=== PATIENT | female | born 1975 | race Caucasian/White ===

== ENCOUNTER 2023-05-22 22:26 | Emergency (ER) | payer BC, SELFPAY ==
[2023-05-22 22:29] VITALS: BP 138/105; PULSE 97; RESP 16; TEMP 36.8; O2SAT 100; BMI 25.0
--- NOTE | 2023-05-22 22:50 | ED_ITS ---
HPI - General Adult General Chief complaint: Headache Stated complaint: HEADACHE Time Seen by Provider: 05/22/23 22:38 Source: patient Mode of arrival: walk-in History of Present Illness HPI narrative: The patient have a history of migraines coming to the ER with migraine attack according to her , the headache is associated with nausea and vomiting and she did take her Imitrex at home that did not help ,the patient had her last episode of headache like this almost a year ago No history of head trauma no other concerning symptoms Related Data Home Medications Medication Instructions Recorded Confirmed citalopram 40 mg tablet 40 mg PO DAILY 05/22/23 05/22/23 montelukast 10 mg tablet 10 mg PO DAILY 05/22/23 05/22/23 pramipexole 0.5 mg tablet 0.5 mg PO DAILY 05/22/23 05/22/23 propranolol 80 mg capsule,24 80 mg PO DAILY 05/22/23 05/22/23 hr,extended release sumatriptan succinate 25 mg tablet 25 mg PO DAILY 05/22/23 05/22/23 Allergies Allergy/AdvReac Type Severity Reaction Status Date / Time banana peppers Allergy Unknown Uncoded 05/22/23 22:36 Review of Systems ROS Status of ROS 10 or more systems reviewed and unremarkable except as noted in history and below [facility] Social History Smoking status: Never smoker Exam Narrative Exam Narrative: Nurses notes and vital signs reviewed and patient is not hypoxic. General: Well-appearing and in no apparent distress. Skin: Warm, dry, no pallor noted. No rash. Head: Normocephalic, atraumatic. Neck: Supple, non-tender. Eye: Pupils are equal, round and EOMI. No scleral icterus. Ears, Nose, Mouth, and Throat: TM are clear, no nasal mucosal hypertrophy. Oral mucosa is moist, no posterior oropharynx erythema, uvula is mid-line Cardiovascular: Regular Rate and Rhythm without murmur, gallop or rub. Respiratory: No accessory muscle use or respiratory distress. Lungs are clear to auscultation, no wheezing, rales or rhonchi Chest Wall: no tenderness Back: No midline thoracic or lumbar vertebral tenderness. No CVA tenderness Musculoskeletal: normal ROM, no calf or popliteal tenderness, no lower extremity edema/swelling GI: Abdomen is soft, non-distended. Normal bowel sounds. No masses appreciated. No tenderness to palpation. No rebound, guarding, or rigidity noted. Neurological: A&O x4. No cranial nerve dysfunction observed. No truncal ataxia. Moves all extremities. Sensation intact. Psychiatric: Cooperative and interactive. Normal mood and affect. Constitutional Vital Signs, click to edit/add: Last Vital Signs Temp 98.3 F 05/22/23 22:29 Pulse 97 H 05/22/23 22:29 Resp 16 05/22/23 22:29 BP 138/105 H 05/22/23 22:29 Pulse Ox 100 05/22/23 22:29 O2 Del Method Room Air 05/22/23 22:29 Course Vital Signs Vital signs: Vital Signs Temperature 98.3 F 05/22/23 22:29 Pulse Rate 97 H 05/22/23 22:29 Respiratory Rate 16 05/22/23 22:29 Blood Pressure 138/105 H 05/22/23 22:29 Pulse Oximetry 100 05/22/23 22:29 Oxygen Delivery Method Room Air 05/22/23 22:29 Temperature 98.3 F 05/22/23 22:29 Pulse Rate 97 H 05/22/23 22:29 Respiratory Rate 16 05/22/23 22:29 Blood Pressure 138/105 H 05/22/23 22:29 Pulse Oximetry 100 05/22/23 22:29 Oxygen Delivery Method Room Air 05/22/23 22:29 Medical Decision Making MDM Narrative Medical decision making narrative: The patient presenting to us with a typical migraine that she was treated in the ER with a Toradol and Compazine after which she was feeling much better Discharge Plan Discharge Chief Complaint: Headache Clinical Impression: Migraine Patient Disposition: Home, Self-Care Time of Disposition Decision: 00:17 Condition: Good Prescriptions / Home Meds: No Action propranolol 80 mg capsule,extended release 24 hr 80 mg PO DAILY citalopram 40 mg tablet 40 mg PO DAILY sumatriptan succinate 25 mg tablet 25 mg PO DAILY pramipexole 0.5 mg tablet 0.5 mg PO DAILY montelukast 10 mg tablet 10 mg PO DAILY Instructions: Acute Headache (ED) Stand Alone Forms: Portal Instructions Referrals: Jose Jennings MD [Primary Care Provider] - 1 week Discharge Date/Time: 05/23/23 00:31
[2023-05-22] MEDS: KETOROLAC TROMETHAMINE 30 MG/ML VIAL 15 MG IVP (23:00)
[2023-05-22] MEDS: PROMETHAZINE HCL 25 MG/ML VIAL IV (23:00)
== END 2023-05-23 00:31 | disposition home or self-care (01) ==
PROVIDERS: Emergency Provider Emergency Medicine; PCP Family Medicine
DX: G43.909 Migraine, unspecified, not intractable, without status migrainosus (principal); Z79.899 Other long term (current) drug therapy
CPT/HCPCS: 96374; 96375; 99284

== ENCOUNTER 2023-08-07 10:45 | Emergency (ER) | payer BC, SELFPAY ==
[2023-08-07 10:46] VITALS: BP 136/94; PULSE 106; RESP 28; O2SAT 99; BMI 24.0
--- NOTE | 2023-08-07 10:55 | ECG_ITS ---
The [facility] Test Date: 2023-08-07 Pat Name: MELE MENDEZ Department: Room: - Gender: Female Information Services Tech: : 1975 Requested By: KATHRYN PHILLIP Order Number: [id number] Reading MD: JASMYNE TOMLIN Measurements Intervals Cobb Rate: 103 P: 79 DE: 130 QRS: 78 QRSD: 94 T: 83 QT: 356 QTc: 415 Interpretive Statements 1120 Sinus tachycardia 2440 Incomplete right bundle branch block 0102 ARTIFACT PRESENT 9140 abnormal rhythm ECG No previous ECG available for comparison Electronically Signed On 08-08-2023 7:00:04 EDT by JASMYNE TOMLIN
--- NOTE | 2023-08-07 10:55 | XR_ITS ---
The [address] [address] Patient Name: MELE MENDEZ MRN: [id number] date: 1975 Sex: F Assigned Patient Location: ER Current Patient Location: ER Accession/Order Number: [id number] Exam Date: 08/07/2023 11:18 Report Date: 08/07/2023 11:42 At the request of: ERMA LOVE Procedure: XR chest 1V EXAMINATION: XR chest 1V HISTORY: shortness of breath COMPARISON: No relevant comparison available. FINDINGS: LUNGS: No significant pulmonary parenchymal abnormalities. VASCULATURE: No increased pulmonary vasculature. PLEURA: No pneumothorax, effusion, or pleural thickening. CARDIAC: No cardiomegaly or cardiac silhouette abnormality. MEDIASTINUM: No visible mass or adenopathy. BONES: No fracture or visible bone lesion. OTHER: Negative. XR/XR chest 1V IMPRESSION: 1. Well expanded lungs without appreciable infiltrates. Electronically authenticated by: ORION MAC Date: 08/07/2023 11:42
[2023-08-07] MEDS: IPRATROPIUM/ALBUTEROL SULFATE 3 ML AMPUL.NEB IH (11:00)
[2023-08-07 11:01] VITALS: PULSE 83; RESP 24; O2SAT 95
[2023-08-07] MEDS: METHYLPREDNISOLONE SOD SUCC PF 125 MG/2 ML VIAL IVP (11:09)
[2023-08-07 11:10] VITALS: O2SAT 99
--- NOTE | 2023-08-07 11:10 | ED_ITS ---
HPI - SOB/Dyspnea General Chief Complaint: Shortness of Breath/Dyspnea Stated Complaint: ASTHMA ATTACK/SOB Time Seen by Provider: 08/07/23 10:50 Source: patient Mode of arrival: walk-in Limitations: no limitations History of Present Illness HPI Narrative: 47yr old smoker previously diagnosed with Asthma presents after 1 week of cough and wheezing that acutely worsened over night. She has an inhaler and nebulizer machine at home - she used the inhaler without improvement so she tried the nebulizer this morning but it didn't help, so she came to the ED for evaluation and treatment. She denied history of COPD or emphysema. She denied cardiac history or history of DVT or PE. Related Data Home Medications Medication Instructions Recorded Confirmed citalopram 40 mg tablet 40 mg PO DAILY 05/22/23 05/22/23 montelukast 10 mg tablet 10 mg PO DAILY 05/22/23 05/22/23 pramipexole 0.5 mg tablet 0.5 mg PO DAILY 05/22/23 05/22/23 propranolol 80 mg capsule,24 80 mg PO DAILY 05/22/23 05/22/23 hr,extended release sumatriptan succinate 25 mg tablet 25 mg PO DAILY 05/22/23 05/22/23 Previous Rx's Medication Instructions Recorded azithromycin 250 mg tablet See Rx Instructions PO .COMPLEX #6 08/07/23 tabs prednisone 20 mg tablet 40 mg PO DAILY 5 days #10 tabs 08/07/23 Allergies Allergy/AdvReac Type Severity Reaction Status Date / Time banana peppers Allergy Unknown Uncoded 05/22/23 22:36 [facility] Social History Smoking status: Heavy tobacco smoker Exam Narrative Exam Narrative: Nurses notes and vital signs reviewed and patient is not hypoxic. afebrile General: Well-appearing and in no apparent distress. Skin: Warm, dry, no pallor noted. No rash. Head: Normocephalic, atraumatic. Eye: Pupils are equal, round and EOMI. No scleral icterus. Ears, Nose, Mouth, and Throat: Oral mucosa is moist Cardiovascular: Regular Rate and Rhythm without murmur, gallop or rub. Respiratory: Increased work of breathing with accessory muscle use but no respiratory distress. Lungs with inspiratory and expiratory wheezing throughout, scattered rhonchi Chest Wall: no tenderness, crepitus or subcutaneous emphysema Musculoskeletal: normal ROM, no calf or popliteal tenderness, no lower extremity edema/swelling Neurological: A&O x4. No cranial nerve dysfunction observed. No truncal ataxia. Moves all extremities. Sensation intact. Psychiatric: Cooperative and interactive. Normal mood and affect. Constitutional Vital Signs, click to edit/add: Last Vital Signs Pulse 83 08/07/23 11:01 Resp 24 08/07/23 11:01 BP 136/94 H 08/07/23 10:46 Pulse Ox 99 08/07/23 11:10 O2 Del Method Nasal Cannula 08/07/23 11:01 O2 Flow Rate 2 08/07/23 11:10 Course Vital Signs Vital signs: Vital Signs Pulse Rate 106 H 08/07/23 10:46 Respiratory Rate 28 H 08/07/23 10:46 Blood Pressure 136/94 H 08/07/23 10:46 Pulse Oximetry 99 08/07/23 10:46 Oxygen Delivery Method Room Air 08/07/23 10:46 Pulse Rate 83 08/07/23 11:01 Respiratory Rate 24 08/07/23 11:01 Blood Pressure 136/94 H 08/07/23 10:46 Pulse Oximetry 99 08/07/23 11:10 Oxygen Delivery Method Nasal Cannula 08/07/23 11:01 Oxygen Delivery Flow Rate 2 08/07/23 11:10 MDM - SOB/Dyspnea MDM Narrative Medical decision making narrative: Patient was placed on laboratory monitor and EKG obtained. Blood drawn and sent for evaluation, including lactate and blood cultures per sepsis protocol. Portable CXR obtained. She received IV Solumedrol and nebulized albuterol and atrovent. she felt better after emergency department treatment. No pneumonia identified on chest x-ray but she has findings consistent with chronic obstructive pulmonary disease. Screening testing including d-dimer, troponin, BNP, Covid swab, were all negative. remaining blood tests were unremarkable. Cultures are pending but lactate was negative. The patient was informed of results and we discussed her diagnosis. She was able to be discharged home with prescription for five days of prednisone, antibiotic and instructions to use her albuterol nebulizer every six hours for the next few days and then as needed. Was given referral information for Dr. Caputo, our clinical care coordinator. She can also follow up with her primary care physician. Lab Data Attestation: I reviewed the patient's lab results. Labs: Lab Results 08/07/23 08/07/23 Range/Units 11:00 11:16 WBC 7.8 (4.0-11.0) 10^3/uL RBC 4.79 (4.20-5.40) 10^6/uL Hgb 11.1 L (12.0-16.0) g/dL Hct 37.0 (36.0-48.0) % MCV 77.2 L (81.0-99.0) fL MCH 23.2 L (26.7-34.0) pg MCHC 30.0 (29.9-35.2) g/dL RDW 18.6 H (11.0-15.0) % Plt Count 260 (150-450) 10^3/uL MPV 9.4 L (9.5-13.5) fL Neut % (Auto) 79.6 H (43.0-75.0) % Lymph % (Auto) 7.3 L (20.5-60.0) % [place] % (Auto) 5.1 (1.7-12.0) % Eos % (Auto) 6.7 (0.9-7.0) % Baso % (Auto) 0.9 (0.2-2.0) % Neut # (Auto) 6.2 (1.4-6.5) 10^3/uL Lymph # (Auto) 0.6 L (1.2-3.8) 10^3/uL [place] # (Auto) 0.4 (0.3-0.8) 10^3/uL Eos # (Auto) 0.5 (0.0-0.7) 10^3/uL Baso # (Auto) 0.1 (0.0-0.1) 10^3/uL Abs Immat Gran (auto) 0.03 (0.00-0.03) 10^3/uL Imm/Tot Granulo (auto) 0.4 (0.0-0.5) % D-Dimer 0.50 (<=0.59) mg/L FEU Sodium 141 (136-145) mmol/L Potassium 3.7 (3.5-5.1) mmol/L Chloride 103 (98-107) mmol/L Carbon Dioxide 24.2 (21.0-32.0) mmol/L Anion Gap 17.5 BUN 10.0 (7.0-18.0) mg/dL Creatinine 0.71 (0.55-1.02) mg/dL Est GFR ( Amer) >60 (>=60) Est GFR (Non-Af Amer) >60 (>=60) BUN/Creatinine Ratio 14.1 Glucose 201 H (74-106) mg/dL Lactate 1.8 (0.4-2.0) mmol/L Calcium 8.6 (8.5-10.1) mg/dL Troponin I High Sens 13.7 (4.0-51.3) pg/mL NT-Pro-B Natriuret Pep 265.0 (<=450.0) pg/mL SARS-CoV-2 (PCR) Negative (NEGATIVE) Imaging Data Chest x-ray: Radiologist's impression: Patient Name: MELE MENDEZ MRN: [id number] date: 1975 Sex: F Assigned Patient Location: ER Current Patient Location: ER Accession/Order Number: [id number] Exam Date: 08/07/2023 11:18 Report Date: 08/07/2023 11:42 At the request of: ERMA LOVE Procedure: XR chest 1V EXAMINATION: XR chest 1V HISTORY: shortness of breath COMPARISON: No relevant comparison available. FINDINGS: LUNGS: No significant pulmonary parenchymal abnormalities. VASCULATURE: No increased pulmonary vasculature. PLEURA: No pneumothorax, effusion, or pleural thickening. CARDIAC: No cardiomegaly or cardiac silhouette abnormality. MEDIASTINUM: No visible mass or adenopathy. BONES: No fracture or visible bone lesion. OTHER: Negative. IMPRESSION: 1. Well expanded lungs without appreciable infiltrates. Electronically authenticated by: ORION MAC Date: 08/07/2023 11:42 ECG Data Interpretation: EKG interpretation: Emergency Department physician interpretation. sinus tachycardia at 103bpm. incomplete right bundle-branch block. No ST segment elevation or depression. Smoking Cessation Time spent discussing smoking cessation with patient: 3 to 10 minutes Patient Acknowledges Need for Cessation: Yes Discharge Plan Discharge Chief Complaint: Shortness of Breath/Dyspnea Clinical Impression: Acute infective exacerbation of chronic obstructive airway disease, Asthma with acute exacerbation Patient Disposition: Home, Self-Care Time of Disposition Decision: 12:08 Prescriptions / Home Meds: New prednisone 20 mg tablet 40 mg PO DAILY 5 Days Qty: 10 0RF azithromycin 250 mg tablet See Rx Instructions .ROUTE .COMPLEX Qty: 6 0RF Rx Instructions: For 250 mg dose pack: take 500 mg today (day 1), then 250 mg for 4 days (days 2-5) No Action propranolol 80 mg capsule,extended release 24 hr 80 mg PO DAILY citalopram 40 mg tablet 40 mg PO DAILY sumatriptan succinate 25 mg tablet 25 mg PO DAILY pramipexole 0.5 mg tablet 0.5 mg PO DAILY montelukast 10 mg tablet 10 mg PO DAILY Instructions: Asthma (ED), How to Stop Smoking (ED), Chronic Bronchitis (ED) Stand Alone Forms: Portal Instructions Referrals: Jose Jennings MD [Primary Care Provider] - 1 week Keagan Caputo DO [Physician] - As soon as possible
[2023-08-07 11:28] LABS: Basophils Absolute Auto 0.1 10^3/uL (0.0-0.1); Basophils Percent Auto 0.9 % (0.2-2.0); Eosinophils Absolute Auto 0.5 10^3/uL (0.0-0.7); Eosinophils Percent Auto 6.7 % (0.9-7.0); Hemoglobin 11.1 g/dL (12.0-16.0); Immature Granulocytes Abs Auto 0.03 10^3/uL (0.00-0.03); Immature Granulocytes Pct Auto 0.4 % (0.0-0.5); Lymphocytes Absolute Auto 0.6 10^3/uL (1.2-3.8); Lymphocytes Percent Auto 7.3 % (20.5-60.0); Mean Corpuscular Hemoglobin 23.2 pg (26.7-34.0); Mean Corpuscular Volume 77.2 fL (81.0-99.0); Mean Platelet Volume 9.4 fL (9.5-13.5); Monocytes Absolute Auto 0.4 10^3/uL (0.3-0.8); Monocytes Percent Auto 5.1 % (1.7-12.0); Neutrophils Absolute Auto 6.2 10^3/uL (1.4-6.5); Neutrophils Percent Auto 79.6 % (43.0-75.0); Platelet Count 260 10^3/uL (150-450); Red Blood Count 4.79 10^6/uL (4.20-5.40); Red Cell Distribution Width 18.6 % (11.0-15.0); White Blood Count 7.8 10^3/uL (4.0-11.0)
[2023-08-07 11:46] LABS: Lactate/Lactic Acid 1.8 mmol/L (0.4-2.0)
[2023-08-07 11:51] LABS: Anion Gap 17.5; BUN Creatinine Ratio 14.1; Calcium 8.6 mg/dL (8.5-10.1); Carbon Dioxide 24.2 mmol/L (21.0-32.0); Chloride 103 mmol/L (98-107); Estimated GFR (African America >60 (>=60); Estimated GFR (Non-African Ame >60 (>=60); Glucose 201 mg/dL (74-106); Potassium 3.7 mmol/L (3.5-5.1); Sodium 141 mmol/L (136-145); Troponin I High Sensitivity 13.7 pg/mL (4.0-51.3)
[2023-08-07 11:57] LABS: SARS-CoV-2 Ag NEGATIVE (NEGATIVE)
[2023-08-07 15:07] LABS: SARS-CoV-2 NAA NOT DETECTED (NOT DETECTE)
== END 2023-08-07 12:40 | disposition home or self-care (01) ==
PROVIDERS: Emergency Provider Emergency Medicine; PCP Family Medicine
DX: J44.1 Chronic obstructive pulmonary disease with (acute) exacerbation (principal); J45.901 Unspecified asthma with (acute) exacerbation; Z79.899 Other long term (current) drug therapy; F17.210 Nicotine dependence, cigarettes, uncomplicated; Z20.822 Contact with and (suspected) exposure to COVID-19
CPT/HCPCS: 36415; 71045; 80048; 83605; 83880; 84484; 85025; 85378; 87040; 87635; 87811; 93005; 94640; 96374; 99285; J2930

== ENCOUNTER 2023-08-07 14:24 | Inpatient (IN) | payer BC, SELFPAY ==
[2023-08-07] VITALS (14 sets, daily range): BP systolic 116–132; BP diastolic 68–94; PULSE 98–160; RESP 24–40; TEMP 36.4–36.9; O2SAT 90–100; BMI 23.8
--- NOTE | 2023-08-07 14:28 | ED.SOB1 ---
HPI - SOB/Dyspnea General Chief Complaint: Shortness of Breath/Dyspnea Stated Complaint: SHORTNESS OF BREATH Time Seen by Provider: 08/07/23 14:26 History of Present Illness HPI Narrative: patient was evaluated in our ED earlier today and treated for asthma exacerbation and acute on chronic lung disease. She felt better after receiving IV solumedrol and duoneb treatment, was 93% o room air pulse ox and wanted to go home. She was prescribed additional albuterol nebs for home use, a course of antibiotics and a course of prednisone therapy. her workup was otherwise negative including CXR, ddimer, troponin and ekg. Less than 2 hours after discharge home she called 911 to bring her back because she was feeling shortness of breath. Related Data Home Medications Medication Instructions Recorded Confirmed citalopram 40 mg tablet 40 mg PO DAILY 05/22/23 05/22/23 montelukast 10 mg tablet 10 mg PO DAILY 05/22/23 05/22/23 pramipexole 0.5 mg tablet 0.5 mg PO DAILY 05/22/23 05/22/23 propranolol 80 mg capsule,24 80 mg PO DAILY 05/22/23 05/22/23 hr,extended release sumatriptan succinate 25 mg tablet 25 mg PO DAILY 05/22/23 05/22/23 Previous Rx's Medication Instructions Recorded albuterol sulfate 2.5 mg/3 mL 2.5 mg (3 mL) inhalation Q6H PRN 08/07/23 (0.083 %) solution for nebulization shortness of breath or wheezing #90 mL azithromycin 250 mg tablet See Rx Instructions PO .COMPLEX #6 08/07/23 tabs prednisone 20 mg tablet 40 mg PO DAILY 5 days #10 tabs 08/07/23 Allergies Allergy/AdvReac Type Severity Reaction Status Date / Time banana peppers Allergy Unknown Uncoded 05/22/23 22:36 PFSH PFS Social History Smoking status: Heavy tobacco smoker Exam Narrative Exam Narrative: Nurses notes and vital signs reviewed and patient is not hypoxic. afebrile General: Well-appearing and in no apparent distress. Skin: Warm, dry, no pallor noted. No rash. Head: Normocephalic, atraumatic. Eye: Pupils are equal, round and EOMI. No scleral icterus. Ears, Nose, Mouth, and Throat: Oral mucosa is moist Cardiovascular: tachycardia. Respiratory: Increased work of breathing with accessory muscle use but no respiratory distress. Lungs with inspiratory and expiratory wheezing throughout, scattered rhonchi Chest Wall: no tenderness, crepitus or subcutaneous emphysema Musculoskeletal: normal ROM, no calf or popliteal tenderness, no lower extremity edema/swelling Neurological: A&O x4. No cranial nerve dysfunction observed. No truncal ataxia. Moves all extremities. Sensation intact. Psychiatric: Cooperative and interactive. Normal mood and affect. Constitutional Vital Signs, click to edit/add: Last Vital Signs Temp 98.0 F 08/07/23 14:25 Pulse 106 H 08/07/23 14:25 Resp 28 H 08/07/23 14:25 BP 132/91 08/07/23 14:25 Pulse Ox 100 08/07/23 14:25 O2 Del Method Room Air 08/07/23 14:25 Course Vital Signs Vital signs: Vital Signs Temperature 98.0 F 08/07/23 14:25 Pulse Rate 106 H 08/07/23 14:25 Respiratory Rate 28 H 08/07/23 14:25 Blood Pressure 132/91 08/07/23 14:25 Pulse Oximetry 100 08/07/23 14:25 Oxygen Delivery Method Room Air 08/07/23 14:25 Temperature 98.0 F 08/07/23 14:25 Pulse Rate 106 H 08/07/23 14:25 Respiratory Rate 28 H 08/07/23 14:25 Blood Pressure 132/91 08/07/23 14:25 Pulse Oximetry 100 08/07/23 14:25 Oxygen Delivery Method Room Air 08/07/23 14:25 MDM - SOB/Dyspnea MDM Narrative Medical decision making narrative: 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 She was kept on [place] oxygen. ABG ordered to be obtained. I spoke with Dr Gay - patient will be admitted for asthma exacerbation, dyspnea and continue to receive steroids, neb treatments until improved enough to go home. Obs admit, medsurg with telemtry - Dr Gay's care. Discharge Plan Discharge Chief Complaint: Shortness of Breath/Dyspnea Clinical Impression: Acute infective exacerbation of chronic obstructive airway disease, Acute dyspnea, Asthma with acute exacerbation Patient Disposition: Admitted as Observation Time of Disposition Decision: 14:34 Prescriptions / Home Meds: No Action propranolol 80 mg capsule,extended release 24 hr 80 mg PO DAILY citalopram 40 mg tablet 40 mg PO DAILY sumatriptan succinate 25 mg tablet 25 mg PO DAILY pramipexole 0.5 mg tablet 0.5 mg PO DAILY montelukast 10 mg tablet 10 mg PO DAILY prednisone 20 mg tablet 40 mg PO DAILY 5 Days Qty: 10 0RF azithromycin 250 mg tablet See Rx Instructions .ROUTE .COMPLEX Qty: 6 0RF Rx Instructions: For 250 mg dose pack: take 500 mg today (day 1), then 250 mg for 4 days (days 2-5) albuterol sulfate 2.5 mg /3 mL (0.083 %) solution for nebulization 2.5 mg inhalation Q6H PRN (Reason: shortness of breath or wheezing) Qty: 90 0RF Additional Instructions: [facility] Referrals: Jose Jennings MD [Primary Care Provider] - 1 week
--- NOTE | 2023-08-07 14:40 | PC.NURSE ---
pt taking long deep breaths, inspiratory and expiatory wheezing comes and goes. pt alert and inform that will be admitted, pt verbalized udnerstanding.
[2023-08-07] MEDS: IPRATROPIUM/ALBUTEROL SULFATE 3 ML AMPUL.NEB IH ×2 (15:44→19:24)
--- NOTE | 2023-08-07 15:54 | PM.HP ---
H&P: HPI History of Present Illness Chief complaint: SHORTNESS OF BREATH Narrative: patient is a 47-year-old female past medical history of asthma, tobacco abuse, migraine headaches who reports over the last couple days developed a upper respiratory infection. She notes nasal congestion cough with some sinus drainage and developed shortness of breath yesterday. She is using her rescue inhaler without improvement she presented to the Emergency Room today was sent home and then returned. She states that she is not on oxygen at home her last cigarette was around 1 AM last night she smokes about half a pack to a pack per day depending on her stress level. She denies seeing a laborer poultry hatchery in the past and denies having pulmonary function tests. She also reports that she ran out of her Singulair last couple days. She denies any fevers and just feels worn down no chest pain but shortness of breath. Review of Systems ROS Narrative ROS: a complete review of systems were reviewed with patient and are positive as below or listed in History of Chief Complaint. General: no fever, chills, night sweats Head: no headache, trauma, visual changes, nausea or vomiting Skin: no reported rashes, itching or sores Eyes: no blurriness of vision Ears: no reported hearing loss, vertigo, earache, or tinnitus Throat: no sore throat, hoarseness, swelling of neck, or tongue pain Heart: no chest pain Lungs: shortness of breath, no cough GI: no diarrhea or vomiting/nausea Urinary: no urinary urgency, frequency or pain Neuro: no numbness or tingling HEM: no bleeding issues or bruising ENDO: no thyroid problems Psych: anxiety and depression PFSH PFSH Surgical History H/O tubal ligation ?Z98.51 - Tubal ligation status (ICD-10) Family History Mother Family history of cancer Family history of hypertension Grandmother Family history of cancer Family history of diabetes mellitus Grandfather Family history of diabetes mellitus Father Family history of hypertension Social History Within the past year, how often did you have a drink containing alcohol: monthly or less Within the past year, how many standard drinks containing alcohol did you have on a typical day: 1 or 2 Within the past year, how often did you have six or more drinks on one occasion: never Total score: 0 Score interpretation: A score less than 3 is consistent with normal alcohol consumption. Smoking status: Heavy tobacco smoker Non-prescribed substance use: denies use Previous occupational history: factory Known occupational exposures/hazards: Yes Highest level of school completed/degree received: some college, no degree Are you now , , , , never or living with a partner: never In a typical week, how many times do you talk on the telephone with family, friends, or neighbors: 3 or more times per week How often do you get together with friends or relatives: never How often do you attend yazidi or scientologist services: 4 or more times per year Do you belong to any clubs or organizations such as yazidi groups unions, go[employer] or athletic groups, or school groups: no Total score: 2 Score interpretation: A score of greater than or equal to 2 indicates the lowest level of social isolation. Little interest or pleasure in doing things: not at all Feeling down, depressed, or hopeless: several days Feel stressed/tense/nervous/anxious/difficulty sleeping: rather much Life stressors: financial matters Due to disability, difficulty making decisions: No Do you think of yourself as: straight/heterosexual Gender Identity: female Meds Home Medications and Allergies Home Medications Medication Instructions Recorded Confirmed Type citalopram 40 mg tablet 40 mg PO DAILY 05/22/23 08/07/23 History montelukast 10 mg tablet 10 mg PO DAILY 05/22/23 08/07/23 History pramipexole 0.5 mg tablet 0.5 mg PO DAILY 05/22/23 08/07/23 History propranolol 80 mg capsule,24 80 mg PO DAILY 05/22/23 08/07/23 History hr,extended release sumatriptan succinate 25 mg tablet 25 mg PO DAILY 05/22/23 08/07/23 History albuterol sulfate 2.5 mg/3 mL 2.5 mg (3 mL) inhalation Q6H PRN 08/07/23 08/07/23 Rx (0.083 %) solution for nebulization shortness of breath or wheezing #90 mL prednisone 20 mg tablet 40 mg PO DAILY 5 days #10 tabs 08/07/23 08/07/23 Rx Allergies Allergy/AdvReac Type Severity Reaction Status Date / Time banana peppers Allergy Unknown Uncoded 05/22/23 22:36 Exam Narrative Exam Narrative: General: Patient is alert, and oriented to person, place and time with some shortness of breath with speaking Skin: no visible rashes, or ulcers Head: atraumatic, acephalic Eyes: PERRLA, no nystagmus present, conjunctiva clear, no scleral icterus Ears: normal gross auditory acuity Heart: Normal rate and rhythm, no murmurs/rubs/gallops Lungs: audible wheezes, no crackles and diminished breath sounds all lung tirado Abdomen: Normal audible bowel sounds, no distension, No palpable masses, no organomegaly, no rebound/guarding/ or rigidity Musculoskeletal: no swelling bilateral lower extremities Neuro: CN II-X grossly intact, normal sensation upper and lower extremities Constitutional Vital Signs, click to edit/add: Last Vital Signs Temp 97.5 F L 08/07/23 15:01 Pulse 124 H 08/07/23 15:01 Resp 26 H 08/07/23 15:01 BP 116/74 08/07/23 15:01 Pulse Ox 95 08/07/23 15:01 O2 Del Method Nasal Cannula 08/07/23 15:01 O2 Flow Rate 2 08/07/23 15:01 Assessment and Plan Assessment and Plan (1) Acute infective exacerbation of chronic obstructive airway disease: Assessment and Plan: will place on Solu-Medrol 40 mg every 6 hours, scheduled DuoNeb's every 4 hours with as needed albuterol every 4 hours, Pulmicort twice a day OPEP therapy. Give 2 grams of mag IV. Chest X-ray was negative for pneumonia. Negative Covid test, but will check respiratory panel. patient placed on telemetry, continuous pulse ox, oxygen therapy if needed. Troponin and cardiac work up negative, d-dimer negative. (2) Migraine: Assessment and Plan: continue home medications (3) Anxiety and depression: Assessment and Plan: continue celexa (4) Tobacco abuse: Assessment and Plan: plans to stop Plan full code lovenox for dvt prophylaxis patient is observation status
[2023-08-07] MEDS: METHYLPREDNISOLONE SOD SUCC PF 40 MG/ML VIAL IVP ×2 (16:19→21:07)
[2023-08-07 16:21] LABS: Adenovirus NOT DETECTED (NOT DETECTE); Bordetella parapertussis NOT DETECTED (NOT DETECTE); Coronavirus 229E NOT DETECTED (NOT DETECTE); Coronavirus HKU1 NOT DETECTED (NOT DETECTE); Coronavirus NL63 NOT DETECTED (NOT DETECTE); Coronavirus OC43 NOT DETECTED (NOT DETECTE); Human Metapneumovirus NOT DETECTED (NOT DETECTE); Influenza A NOT DETECTED (NOT DETECTE); Influenza B NOT DETECTED (NOT DETECTE); Mycoplasma pneumoniae NOT DETECTED (NOT DETECTE); Parainfluenza Virus 1 NOT DETECTED (NOT DETECTE); Parainfluenza Virus 2 NOT DETECTED (NOT DETECTE); Parainfluenza Virus 3 NOT DETECTED (NOT DETECTE); Parainfluenza Virus 4 NOT DETECTED (NOT DETECTE); Respiratory Syncytial Virus NOT DETECTED (NOT DETECTE); SARS-CoV-2 NOT DETECTED (NOT DETECTE)
[2023-08-07 16:31] LABS: Amphetamine Screen Urine NEGATIVE (NEGATIVE); Barbiturates Screen Urine NEGATIVE (NEGATIVE); Benzodiazepines Screen Urine NEGATIVE (NEGATIVE); Buprenorphine Screen Urine NEGATIVE (NEGATIVE); Cannabinoid Screen Urine NEGATIVE (NEGATIVE); Cocaine Screen Urine NEGATIVE (NEGATIVE); Methadone Screen Urine NEGATIVE (NEGATIVE); Methamphetamines Screen Urine NEGATIVE (NEGATIVE); Opiate Screen Urine NEGATIVE (NEGATIVE); Oxycodone Screen Urine NEGATIVE (NEGATIVE); Phencyclidine Screen Urine NEGATIVE (NEGATIVE); Tricyclic Antidepressant Urine NEGATIVE (NEGATIVE)
[2023-08-07 17:10] LABS: Human Rhinovirus/Enterovirus DETECTED (NOT DETECTE)
[2023-08-07] MEDS: AZITHROMYCIN 250 MG in 0.9 % SODIUM CHLORIDE 250 ML IV (17:38)
[2023-08-07] MEDS: MAGNESIUM SULFATE IN WATER 2 GM/50 ML PREMIX IV (17:39)
[2023-08-07] MEDS: SUMATRIPTAN SUCCINATE 50 MG TABLET 25 MG PO (21:02)
[2023-08-07] MEDS: PROPRANOLOL HCL 80 MG CAP.24H PO (21:05)
[2023-08-07] MEDS: MONTELUKAST SODIUM 10 MG TABLET PO (21:07)
[2023-08-07] MEDS: METOPROLOL TARTRATE 5 MG/5 ML VIAL IVP (21:44)
[2023-08-07] MEDS: BUDESONIDE 0.5 MG/2 ML AMPULE NEB IH (22:44)
[2023-08-07] MEDS: LEVALBUTEROL HCL 1.25 MG/3 ML VIAL NEB IH (22:44)
--- NOTE | 2023-08-07 23:00 | PC.NURSE ---
Patient called out stating having difficulty breathing. Manager Division entered room found patient in tripod position. Assessed lungs and vs. Patient wheezing and coarse Rhonchi t/o and tight. Respiratory called for Br Tx. and notified Dr. James Scherer of patient situation. HR increased to 140 B/P 128/94, respirations 40, and SPO2 90% on 2l/nc before treatment. After br tx respirations 32, HR103, SPO2 95% on 2l/nc Patient states feeling a little better.
[2023-08-08] VITALS (119 sets, daily range): BP systolic 65–129; BP diastolic 45–93; PULSE 80–130; RESP 20–36; TEMP 36.2–37.2; O2SAT 93–100
--- NOTE | 2023-08-08 | PC.NURSE ---
Pt was moved to ICU Pt continues to have increased work with breathing. Pt holding staff members hand. Dr Goff talks with pt. explains that he may have to put in a breathing tube to help her Pt nods. Ask pt if she wants family called but pt shakes head no and says not to call til the morning. Pt's answer said back to her to confirm and pt shakes her head yes. Pt continues to have increased work with breathing. after pt put on Vapotherm.
[2023-08-08 00:04] LABS: Glucometer 235 mg/dL (74-106)
--- NOTE | 2023-08-08 00:07 | XR_ITS ---
The [address] [address] Patient Name: MELE MENDEZ MRN: [id number] date: 1975 Sex: F Assigned Patient Location: ICU Current Patient Location: ICU Accession/Order Number: [id number] Exam Date: 08/08/2023 00:10 Report Date: 08/08/2023 00:38 At the request of: VELASQUEZ WOODSON Procedure: XR chest 1V EXAM: XR chest 1V HISTORY: SOB COMPARISON: Chest x-ray 08/07/2023 TECHNIQUE: Single frontal view chest x-ray FINDINGS: Hyperexpanded bilateral lungs with flattening of the bilateral diaphragm. No lung consolidation, large pleural effusions, pneumothorax, or acute bony abnormality. Cardiac size is unremarkable. XR/XR chest 1V IMPRESSION: Hyperexpanded bilateral lungs with flattening of the bilateral diaphragm likely reflecting chronic obstructive airway disease. Correlate clinically. No radiographic lung consolidation or large pleural effusions. Electronically authenticated by: KEVIN GUIDO Date: 08/08/2023 00:38
[2023-08-08 00:13] LABS: ABG PCO2 65.7 mmHg (35.0-45.0); pH ABG 7.107 (7.350-7.450)
[2023-08-08 00:14] LABS: Allen Test POSITIVE (POSITIVE); Base Excess ABG -8.9 mmol/L (-2.0-2.0); HCO3 ABG 20.7 mmol/L (22.0-26.0); Liters per Minute 15; O2 Mode NONREBREATHER; Oxygen Saturation ABG 98.1 %
[2023-08-08 00:15] LABS: Puncture Site LR
--- NOTE | 2023-08-08 00:16 | PC.NURSE ---
Approx. around 2345 patient called out again c/o difficulty breathing. Bunk Assembler entered room found patient in tripod position working to breath. Skin pale diaphoretic. SPO2 81% on 2l/nc, HR 80, respiratory 60. Network Programmer called to room, and respiratory. Bunk Assembler on phone with ER doctor Shell to lay eyes on patient. Bunk Assembler waiting for response back from Dr. Scherer. Patient placed on non-rebreather and transfered to room 272 ICU transferred in bed with primary nurse and tunnel form placing supervisor. Orders received from ER doctor for CXR, ABG's. Patient's blood sugar also checked 235.
--- NOTE | 2023-08-08 00:43 | XR_ITS ---
The [address] [address] Patient Name: MELE MENDEZ MRN: [id number] date: 1975 Sex: F Assigned Patient Location: ICU Current Patient Location: ICU Accession/Order Number: [id number] Exam Date: 08/08/2023 00:45 Report Date: 08/08/2023 01:14 At the request of: GAURANG LUND Procedure: XR chest 1V EXAM: XR chest 1V HISTORY: placement of tubes COMPARISON: Chest radiograph dated 08/07/2023. TECHNIQUE: One view of the chest was obtained. FINDINGS: A nasogastric tube courses toward the upper abdomen though the tip is not seen. The endotracheal tube terminates approximately 5.5 cm above the pancho. The cardiac silhouette is stable in size. The lungs are clear. There is no significant pneumothorax or right pleural effusion. There is a possible small left pleural effusion. No acute osseous abnormality is seen. XR/XR chest 1V IMPRESSION: 1. An endotracheal tube terminates approximately 5.5 cm above the pancho. 2. A nasogastric tube courses toward the left upper quadrant though the tip is not seen. 3. Possible small left pleural effusion. Electronically authenticated by: Macho ROBB Date: 08/08/2023 01:14
--- NOTE | 2023-08-08 00:44 | PC.NURSE ---
Report given to Joy HAWLEY in ICU
[2023-08-08] MEDS: LEVALBUTEROL HCL 1.25 MG/3 ML VIAL NEB IH ×5 (00:50→11:15)
--- NOTE | 2023-08-08 00:59 | ED.GENADUL1 ---
HPI - General Adult General Chief complaint: Shortness of Breath/Dyspnea Stated complaint: SHORTNESS OF BREATH Time Seen by Provider: 08/07/23 14:26 Mode of arrival: ambulance History of Present Illness HPI narrative: eye was asked to go to the ICU to evaluate the patient. She had been admitted earlier in the day and was having difficulty breathing. Work of breathing had been increasing throughout the day. Related Data Home Medications Medication Instructions Recorded Confirmed citalopram 40 mg tablet 40 mg PO DAILY 05/22/23 08/07/23 montelukast 10 mg tablet 10 mg PO DAILY 05/22/23 08/07/23 pramipexole 0.5 mg tablet 0.5 mg PO DAILY 05/22/23 08/07/23 propranolol 80 mg capsule,24 80 mg PO DAILY 05/22/23 08/07/23 hr,extended release sumatriptan succinate 25 mg tablet 25 mg PO DAILY 05/22/23 08/07/23 Previous Rx's Medication Instructions Recorded albuterol sulfate 2.5 mg/3 mL 2.5 mg (3 mL) inhalation Q6H PRN 08/07/23 (0.083 %) solution for nebulization shortness of breath or wheezing #90 mL prednisone 20 mg tablet 40 mg PO DAILY 5 days #10 tabs 08/07/23 Allergies Allergy/AdvReac Type Severity Reaction Status Date / Time banana peppers Allergy Unknown Uncoded 05/22/23 22:36 PFSH PFSH Surgical History H/O tubal ligation ?Z98.51 - Tubal ligation status (ICD-10) Family History Mother Family history of cancer Family history of hypertension Grandmother Family history of cancer Family history of diabetes mellitus Grandfather Family history of diabetes mellitus Father Family history of hypertension Social History Within the past year, how often did you have a drink containing alcohol: monthly or less Within the past year, how many standard drinks containing alcohol did you have on a typical day: 1 or 2 Within the past year, how often did you have six or more drinks on one occasion: never Total score: 0 Score interpretation: A score less than 3 is consistent with normal alcohol consumption. Smoking status: Heavy tobacco smoker Non-prescribed substance use: denies use Previous occupational history: factory Known occupational exposures/hazards: Yes Highest level of school completed/degree received: some college, no degree Are you now , , , , never or living with a partner: never In a typical week, how many times do you talk on the telephone with family, friends, or neighbors: 3 or more times per week How often do you get together with friends or relatives: never How often do you attend presybeterian or jain services: 4 or more times per year Do you belong to any clubs or organizations such as presybeterian groups unions, [employer] or athletic groups, or school groups: no Total score: 2 Score interpretation: A score of greater than or equal to 2 indicates the lowest level of social isolation. Little interest or pleasure in doing things: not at all Feeling down, depressed, or hopeless: several days Feel stressed/tense/nervous/anxious/difficulty sleeping: rather much Life stressors: financial matters Due to disability, difficulty making decisions: No Do you think of yourself as: straight/heterosexual Gender Identity: female Exam Constitutional Vital Signs, click to edit/add: Last Vital Signs Temp 98.4 F 08/07/23 19:29 Pulse 98 H 08/07/23 23:11 Resp 24 08/07/23 23:11 BP 128/94 H 08/07/23 23:07 Pulse Ox 95 08/07/23 23:11 O2 Del Method Nasal Cannula 08/07/23 23:11 O2 Flow Rate 2 08/07/23 23:11 Course Vital Signs Vital signs: Vital Signs Temperature 98.0 F 08/07/23 14:25 Pulse Rate 106 H 08/07/23 14:25 Respiratory Rate 28 H 08/07/23 14:25 Blood Pressure 132/91 08/07/23 14:25 Pulse Oximetry 100 08/07/23 14:25 Oxygen Delivery Method Room Air 08/07/23 14:25 Temperature 98.4 F 08/07/23 19:29 Pulse Rate 98 H 08/07/23 23:11 Respiratory Rate 24 08/07/23 23:11 Blood Pressure 128/94 H 08/07/23 23:07 Pulse Oximetry 95 08/07/23 23:11 Oxygen Delivery Method Nasal Cannula 08/07/23 23:11 Oxygen Delivery Flow Rate 2 08/07/23 23:11 Medical Decision Making Lab Data Labs: Lab Results 08/07/23 08/07/23 08/08/23 Range/Units 11:16 16:05 00:02 Puncture Site Lr ABG pH 7.107 L* (7.350-7.450) ABG pCO2 65.7 H* (35.0-45.0) mmHg ABG pO2 138.0 H (80.0-100.0) mmHg ABG HCO3 20.7 L (22.0-26.0) mmol/L ABG O2 Saturation 98.1 % ABG Base Excess -8.9 L (-2.0-2.0) mmol/L Colin Test Positive (POSITIVE) O2 Liters/Min 15 Urine Opiates Screen Negative (NEGATIVE) Ur Buprenorphine Scrn Negative (NEGATIVE) Ur Oxycodone Screen Negative (NEGATIVE) Urine Methadone Screen Negative (NEGATIVE) Ur Propoxyphene Screen Negative (NEGATIVE) Ur Barbiturates Screen Negative (NEGATIVE) U Tricyclic Antidepress Negative (NEGATIVE) Ur Phencyclidine Scrn Negative (NEGATIVE) Ur Amphetamines Screen Negative (NEGATIVE) U Methamphetamines Scrn Negative (NEGATIVE) U Benzodiazepines Scrn Negative (NEGATIVE) Urine Cocaine Screen Negative (NEGATIVE) U Cannabinoids Screen Negative (NEGATIVE) Adenovirus (PCR) Not detected (NOT DETECTE) C. pneumoniae DNA (PCR) Not detected (NOT DETECTE) Coronavirus Type OC43 Not detected (NOT DETECTE) Coronavirus Type HKU1 Not detected (NOT DETECTE) Coronavirus Type 229E Not detected (NOT DETECTE) Coronavirus Type NL63 Not detected (NOT DETECTE) Human Metapneumovir PCR Not detected (NOT DETECTE) M. pneumoniae (PCR) Not detected (NOT DETECTE) Parainfluenza PCR Not detected (NOT DETECTE) Parainfluenza 2 (PCR) Not detected (NOT DETECTE) Parainfluenza 3 (PCR) Not detected (NOT DETECTE) Parainfluenza 4 (PCR) Not detected (NOT DETECTE) RSV (RT-PCR) Not detected (NOT DETECTE) Entero/Rhino (PCR) Detected A (NOT DETECTE) SARS-CoV-2 (PCR) Not detected (NOT DETECTE) Bordetella pertussis (PCR) Not detected (NOT DETECTE) B parapertussis DNA PCR Not detected (NOT DETECTE) Influenza Type A (PCR) Not detected (NOT DETECTE) Influenza Type B (PCR) Not detected (NOT DETECTE) POC Glucose 235 H (74-106) mg/dL Critical Care Time Critical Care Time Critical Care Time: Yes Total Critical Care Time: 40 Attestation: Due to the high probability of sudden and clinically significant deterioration in the patient's condition he/she required the highest level of my preparedness to intervene urgently I provided critical care time including documentation time, medication orders and management, reevaluation, vital sign assessment, ordering and reviewing of lab tests, ordering and reviewing of x-ray studies, and admission orders. Aggregate critical care time is 40 minutes including only time during which I was engaged in work directly related to his/her care and did not include time spent treating other patients simultaneously. Discharge Plan Discharge Chief Complaint: Shortness of Breath/Dyspnea Clinical Impression: Acute infective exacerbation of chronic obstructive airway disease, Acute dyspnea, Asthma with acute exacerbation Patient Disposition: Admitted as Observation Time of Disposition Decision: 14:34 Discharge Date/Time: 08/07/23 15:06 Procedures ED Procedure Instructions Procedures Procedures: upon evaluation the patient was dyspneic with bilateral rhonchi throughout but equal breath sounds. Chest x-ray my interpretation shows hyperinflation but no pneumothorax or infiltrates. She had received 40 mg of Solu-Medrol earlier in the day and I ordered 125 mg and it was administered IV. She was given aerosol treatment. The plan was to start her on Vapotherm and we did but this was not successful in doing her respiratory status and I made the decision to intubate the patient. The patient was given IV etomidate and then was orotracheally intubated by me on 1st attempt with 7.0 ET tube visualized passing between the cords and appropriate change on the capnometer. She had no desaturation. She was administered additional etomidate and Versed and to prevent drip was ordered. NG tube ordered and inserted. The care was then turned back over to the hospitalist service.
--- NOTE | 2023-08-08 01:10 | PC.NURSE ---
Patient was given 125mg IVP of Solumedrol @ 00:05. Etomidate 10mg iv given @ 00:28 another Etomidate 10mg given @ 00:29. Color change. Endotracheal tube inserted at 00:29 Size 7 tube,26 @ the lips.Versed 4mg given iv at 00:31. NGT to right nare placed at 00:35. Andrew inserted at 00:36. Propofol 10mg iv started at 00:41. CXR done confirmed placement. Intubation was performed by Dr. Goff.
[2023-08-08] MEDS: MIDAZOLAM HCL 2 MG/2 ML VIAL 4 MG IV (01:40)
[2023-08-08] MEDS: ETOMIDATE 20 MG/10 ML VIAL IVP (01:41)
[2023-08-08] MEDS: METHYLPREDNISOLONE SOD SUCC PF 125 MG/2 ML VIAL IVP (01:41)
--- NOTE | 2023-08-08 01:43 | PC.NURSE ---
[id number] Patient asked if she would like family notified and patient stated no just call in morning.
[2023-08-08 01:59] LABS: HCO3 ABG 24.4 mmol/L (22.0-26.0); pH ABG 7.157 (7.350-7.450)
[2023-08-08 02:00] LABS: Allen Test POSITIVE (POSITIVE); Base Excess ABG -4.3 mmol/L (-2.0-2.0); Oxygen Saturation ABG >100.0 %
[2023-08-08 02:01] LABS: Fractionated Inspired Oxygen 100 %; Puncture Site RR; Rate 18; Tidal Volume 400; Vent Mode AC
[2023-08-08 02:02] LABS: O2 Mode VENT
[2023-08-08] MEDS: PROPOFOL 1,000 MG/100 ML VIAL 1.89 MG IV ×3 (04:02→09:33)
[2023-08-08] MEDS: METHYLPREDNISOLONE SOD SUCC PF 40 MG/ML VIAL IVP ×4 (04:05→22:00)
[2023-08-08 05:48] LABS: Basophils Percent Auto 0.1 % (0.2-2.0); Hematocrit 37.2 % (36.0-48.0); Immature Granulocytes Abs Auto 0.14 10^3/uL (0.00-0.03); Immature Granulocytes Pct Auto 0.7 % (0.0-0.5); Lymphocytes Absolute Auto 0.5 10^3/uL (1.2-3.8); Lymphocytes Percent Auto 2.6 % (20.5-60.0); Mean Corpuscular HGB Conc 29.6 g/dL (29.9-35.2); Mean Corpuscular Volume 77.8 fL (81.0-99.0); Monocytes Absolute Auto 0.6 10^3/uL (0.3-0.8); Monocytes Percent Auto 2.8 % (1.7-12.0); Neutrophils Absolute Auto 19.4 10^3/uL (1.4-6.5); Neutrophils Percent Auto 93.8 % (43.0-75.0); Platelet Count 327 10^3/uL (150-450); Red Blood Count 4.78 10^6/uL (4.20-5.40); Red Cell Distribution Width 18.7 % (11.0-15.0); White Blood Count 20.6 10^3/uL (4.0-11.0)
[2023-08-08 05:59] LABS: Anion Gap 12.5; Calcium 8.6 mg/dL (8.5-10.1); Carbon Dioxide 27.7 mmol/L (21.0-32.0); Chloride 104 mmol/L (98-107); Estimated GFR (African America >60 (>=60); Estimated GFR (Non-African Ame >60 (>=60); Glucose 142 mg/dL (74-106); Potassium 5.2 mmol/L (3.5-5.1); Sodium 139 mmol/L (136-145)
--- NOTE | 2023-08-08 08:21 | CT_ITS ---
The [address] [address] Patient Name: MELE MENDEZ MRN: [id number] date: 1975 Sex: F Assigned Patient Location: ICU Current Patient Location: ICU Accession/Order Number: [id number] Exam Date: 08/08/2023 14:14 Report Date: 08/09/2023 15:16 At the request of: KARLI BARRETO Procedure: CT angio chest EXAM: CT angio chest HISTORY: acute respiratory failure, hypoxia, PE protocol COMPARISON: None. TECHNIQUE: Following the intravenous administration of 97 mm of Omnipaque 350, axial soft tissue and lung windows of the chest were coronal and sagittal reformats. 3-D MIPS reconstructions were created and reviewed. CT dose reduction technique was used including Automated Exposure Control. FINDINGS: The heart is nonenlarged. No pericardial effusion. The thoracic aorta is normal caliber. There is adequate opacification of the pulmonary arteries. No evidence of pulmonary embolism. Evaluation of the right lower lobe pulmonary arteries are limited due to patient generated respiratory motion artifact. Endotracheal tube with the tip above the pancho. The central airways are patent. No pneumothorax. No pleural effusion. Minimal bilateral apical scarring. No focal consolidation. No enlarged mediastinal, hilar, axillary or supraclavicular lymph nodes. No aggressive sclerotic or lytic osseous lesions. CT/CT angio chest IMPRESSION: 1. No pulmonary embolism. Electronically authenticated by: AAKASH CARROLL Date: 08/09/2023 15:16
--- NOTE | 2023-08-08 08:25 | PM.PN ---
Progress Note: Subjective Subjective Interval history: overnight patient decompensated with increased work of breathing. Medical decision making by Emergency Room physician to intubate secondary to acute respiratory failure. Attempted and failed Vapotherm. Patient is currently in the ICU and is currently intubated at the time of exam. I was able to speak with her daughters and her son after exam and discuss with them the events of last night prior to them visiting today. Exam Narrative Exam Narrative: General: currently intubated and sedated Heart: Normal rate and rhythm, no murmurs/rubs/gallops Lungs: audible wheezes, no crackles and diminished breath sounds all lung tirado Abdomen: Normal audible bowel sounds, no distension, No palpable masses, no organomegaly, no rebound/guarding/ or rigidity Musculoskeletal: no swelling bilateral lower extremities Constitutional Vital Signs, click to edit/add: Last Vital Signs Temp 97.1 F L 08/08/23 04:25 Pulse 102 H 08/08/23 07:11 Resp 24 08/08/23 07:11 BP 114/76 08/08/23 05:45 Pulse Ox 97 08/08/23 07:11 O2 Del Method Mechanical Ventilator 08/08/23 07:11 O2 Flow Rate 40 08/08/23 00:20 FiO2 303 08/08/23 07:11 Progress Note: Objective Labs Labs: Short CBC 08/08/23 Range/Units 05:05 WBC 20.6 H (4.0-11.0) 10^3/uL Hgb 11.0 L (12.0-16.0) g/dL Hct 37.2 (36.0-48.0) % Plt Count 327 (150-450) 10^3/uL BMP 08/08/23 05:05 Sodium 139 Potassium 5.2 H Chloride 104 Carbon Dioxide 27.7 BUN 18.0 Creatinine 0.75 Glucose 142 H Calcium 8.6 Progress Note: A&P Assessment and Plan (1) Acute respiratory failure with hypoxia and hypercapnia: Assessment and Plan: patient currently intubated, pulmonary consult for vent management, last ABG showed a pH of 7.2 which is been improving on current vent settings, patient has hyper spastic. Continue IV azithromycin, IV Rocephin, IV Solu-Medrol. Appreciate pulmonary input. Once patient is stable will get a CT A of the chest (2) Acute infective exacerbation of chronic obstructive airway disease: Assessment and Plan: continue IV azithromycin and Rocephin (3) Respiratory acidosis: Assessment and Plan: as seen with arterial blood gas, improvement with intubation (4) Migraine: Assessment and Plan: and continue home medications once extubated (5) Anxiety and depression: Assessment and Plan: continue home medications once extubated (6) Tobacco abuse: Plan patient a full code Continue Lovenox for deep vein thrombosis prophylaxis Due to patient's worsening condition and overnight events, currently intubated patient was made inpatient status
[2023-08-08 09:17] LABS: Allen Test POSITIVE (POSITIVE); Base Excess ABG -0.4 mmol/L (-2.0-2.0); Fractionated Inspired Oxygen 30 %; HCO3 ABG 26.3 mmol/L (22.0-26.0); O2 Mode VENT; Oxygen Saturation ABG 93.2 %; PO2 ABG 68.5 mmHg (80.0-100.0); Puncture Site RR; Rate 18; Tidal Volume 400; Vent Mode AC
[2023-08-08 09:19] LABS: ABG PCO2 55.5 mmHg (35.0-45.0); pH ABG 7.283 (7.350-7.450)
[2023-08-08] MEDS: CEFTRIAXONE 1,000 MG in 0.9 % SODIUM CHLORIDE 50 ML 100 MG IV ×2 (10:02→22:00)
[2023-08-08] MEDS: PRAMIPEXOLE 1 MG TABLET 0.5 MG PO (10:02)
[2023-08-08] MEDS: CITALOPRAM HYDROBROMIDE 20 MG TABLET 40 MG PO (10:03)
[2023-08-08] MEDS: PROPRANOLOL HCL 80 MG CAP.24H PO (10:03)
[2023-08-08] MEDS: BUDESONIDE 0.5 MG/2 ML AMPULE NEB IH ×2 (11:15→19:25)
--- NOTE | 2023-08-08 12:13 | CM.NOTE ---
Rounds made with Dr. Kern. Currently intubated on vent. No discharge today.
[2023-08-08] MEDS: DEXMEDETOMIDINE HCL 200 MCG in 0.9 % SODIUM CHLORIDE 50 ML IV (12:17)
[2023-08-08] MEDS: PROPOFOL 1,000 MG/100 ML VIAL 22.68 MG IV ×2 (12:40→14:26)
--- NOTE | 2023-08-08 13:12 | PM.PLCN ---
History of Present Illness History of Present Illness Consult date: 08/08/23 Reason for consult: asthma (status asthmaticus) Chief complaint: SHORTNESS OF BREATH Narrative: 47yo female presented to [facility] ER yesterday morning with cough and wheezing ongoing for ~1 week. She was noted to be using her home O2 without benefit. She was evaluated by ER, given nebulized bronchodilators, and she voiced improvement in her respiratory symptoms. CXR showed hyperexpanded lungs without evidence of infiltrates. SpO2 was 93% on RA. She was discharged from the ER in stable condition. 2 hours later, she apparently developed worsening dyspnea, called 911, and returned to the ER. She was re-evaluated and stated she could not breathe. Testing returned positive for rhinovirus. She was admitted this time. Last night, her respiratory status abruptly worsened. She had increased work of breathing. No identifiable triggers to have explained this. ABG drawn was consistent with an acute hypercapnic respiratory failure with a pH 7.107 and pCO2 65.7. She was emergently intubated with a 7.0 ETT and transferred to the ICU. She remains on the ventilator this morning. ABG are improved, but not optimal with pH 7.28 and pCO2 55.5. She is restless at times, breathing well over the set ventilator rate despite high doses of propofol. Review of Systems ROS Status of ROS unobtainable due to endotracheal tube and unobtainable due to medical condition [facility] Surgical History H/O tubal ligation ?Z98.51 - Tubal ligation status (ICD-10) Family History Mother Family history of cancer Family history of hypertension Grandmother Family history of cancer Family history of diabetes mellitus Grandfather Family history of diabetes mellitus Father Family history of hypertension Social History Within the past year, how often did you have a drink containing alcohol: monthly or less Within the past year, how many standard drinks containing alcohol did you have on a typical day: 1 or 2 Within the past year, how often did you have six or more drinks on one occasion: never Total score: 0 Score interpretation: A score less than 3 is consistent with normal alcohol consumption. Smoking status: Heavy tobacco smoker Non-prescribed substance use: denies use Previous occupational history: factory Known occupational exposures/hazards: Yes Highest level of school completed/degree received: some college, no degree Are you now , , , , never or living with a partner: never In a typical week, how many times do you talk on the telephone with family, friends, or neighbors: 3 or more times per week How often do you get together with friends or relatives: never How often do you attend jainism or taoist services: 4 or more times per year Do you belong to any clubs or organizations such as jainism groups unions, [employer] or athletic groups, or school groups: no Total score: 2 Score interpretation: A score of greater than or equal to 2 indicates the lowest level of social isolation. Little interest or pleasure in doing things: not at all Feeling down, depressed, or hopeless: several days Feel stressed/tense/nervous/anxious/difficulty sleeping: rather much Life stressors: financial matters Due to disability, difficulty making decisions: No Do you think of yourself as: straight/heterosexual Gender Identity: female Meds Home Medications and Allergies Home Medications Medication Instructions Recorded Confirmed Type citalopram 40 mg tablet 40 mg PO DAILY 05/22/23 08/07/23 History montelukast 10 mg tablet 10 mg PO DAILY 05/22/23 08/07/23 History pramipexole 0.5 mg tablet 0.5 mg PO DAILY 05/22/23 08/07/23 History propranolol 80 mg capsule,24 80 mg PO DAILY 05/22/23 08/07/23 History hr,extended release sumatriptan succinate 25 mg tablet 25 mg PO DAILY 05/22/23 08/07/23 History albuterol sulfate 2.5 mg/3 mL 2.5 mg (3 mL) inhalation Q6H PRN 08/07/23 08/07/23 Rx (0.083 %) solution for nebulization shortness of breath or wheezing #90 mL prednisone 20 mg tablet 40 mg PO DAILY 5 days #10 tabs 08/07/23 08/07/23 Rx Allergies Allergy/AdvReac Type Severity Reaction Status Date / Time banana peppers Allergy Unknown Uncoded 05/22/23 22:36 Exam Constitutional Vital Signs, click to edit/add: Last Vital Signs Temp 97.1 F L 08/08/23 04:25 Pulse 106 H 08/08/23 12:51 Resp 23 08/08/23 12:51 BP 115/85 08/08/23 12:51 Pulse Ox 95 08/08/23 12:48 O2 Del Method Mechanical Ventilator 08/08/23 12:51 O2 Flow Rate 40 08/08/23 00:20 FiO2 30 08/08/23 12:51 Documenting provider has reviewed patient's vital signs: yes General appearance: patient mechanically ventilated HENMT Other: 7.0 ETT Chest Common normals: inspection of chest normal Chest: symmetrical chest wall rise Respiratory Effort & inspection: tachypneic Auscultation: wheezes expiratory wheezes and throughout Cardio Rate: tachycardic Rhythm: regular rhythm GI Inspection: normal to inspection Palpation: soft Bladder/kidney exam: catheter in place Extremity Common normals: normal to inspection Neuro Sensorium/orientation: fluctuating sensorium (sedation) Psych Attitude: agitated Results Laboratory Findings ABG, PT/INR, D-dimer: ABG ABG pH 7.283 (7.350-7.450) L* 08/08/23 08:55 ABG pCO2 55.5 mmHg (35.0-45.0) H* 08/08/23 08:55 ABG pO2 68.5 mmHg (80.0-100.0) L 08/08/23 08:55 ABG O2 Saturation 93.2 % 08/08/23 08:55 Abnormal lab findings: Abnormal Labs 08/07/23 08/08/23 08/08/23 11:16 00:02 01:45 WBC Hgb MCV MCH MCHC RDW Neut % (Auto) Lymph % (Auto) Eos % (Auto) Baso % (Auto) Neut # (Auto) Lymph # (Auto) Abs Immat Gran (auto) Imm/Tot Granulo (auto) ABG pH 7.107 L* 7.157 L* ABG pCO2 65.7 H* 69.0 H* ABG pO2 138.0 H 484.0 H ABG HCO3 20.7 L ABG Base Excess -8.9 L -4.3 L Potassium Glucose Entero/Rhino (PCR) Detected A POC Glucose 235 H 08/08/23 08/08/23 05:05 08:55 WBC 20.6 H Hgb 11.0 L MCV 77.8 L MCH 23.0 L MCHC 29.6 L RDW 18.7 H Neut % (Auto) 93.8 H Lymph % (Auto) 2.6 L Eos % (Auto) 0.0 L Baso % (Auto) 0.1 L Neut # (Auto) 19.4 H Lymph # (Auto) 0.5 L Abs Immat Gran (auto) 0.14 H Imm/Tot Granulo (auto) 0.7 H ABG pH 7.283 L* ABG pCO2 55.5 H* ABG pO2 68.5 L ABG HCO3 26.3 H ABG Base Excess Potassium 5.2 H Glucose 142 H Entero/Rhino (PCR) POC Glucose Diagnostic Findings Chest x-ray: report reviewed and image reviewed Assessment and Plan Assessment and Plan (1) Status asthmaticus: Assessment and Plan: 1. Status asthmaticus. Initial provocative factor was rhinovirus, but unclear why she rapidly declined last night, going from nasal cannula to requiring intubation. Patient remains quite bronchospastic, both on examination, as well as the flow-pressure loop. We do not have heliox available. Initially wanted to change sedative to ketamine given its bronchodilator properties, but it is on backorder and we have a limited stock. Will add-on Precedex to see if this can help improve sedation, as well as control heart rate, though it will not suppress her breathing. Hopefully if she is less agitated, she will not be as tachypneic, allowing for a longer expiratory time which facilitates CO2 exchange. If she cannot be controlled with sedatives, will need to consider paralysis (with BIS and [id number] monitoring). For now, continue steroids. Scheduled bronchodilators were discontinued - appears albuterol was being changed to levalbuterol and scheduled treatments were left off. Added levalbuterol + ipratropium Q4H back on. Check Mg2+ in the AM. 2. Acute hypoxic & hypercapnic respiratory failure. Secondary to status asthmaticus. Patient's hypercapnia has improved, but not optimal. Still has extensive bronchospasm, tachypneic - not allowing time for full exhalation for CO2 exchange. Attempting to calm breathing down to allow slower respiratory rate. 3. Rhinovirus bronchitis. Treatment is supportive. CT chest ordered and is pending. 4. Tobacco abuse. Smoking cessation is paramount at this time. Plan She is critically ill requiring intensive care unit management. Remains on ventilator, not ready to begin sedation vacation or weaning protocol. 40 minutes critical care time spent on patient.
--- NOTE | 2023-08-08 14:29 | SWNOTE1 ---
Pt is on the vent, SW to re-assess once she is off.
[2023-08-08] MEDS: LEVALBUTEROL HCL 0.63 MG/3 ML VIAL.NEB IH ×3 (15:11→23:03)
[2023-08-08] MEDS: IPRATROPIUM BROMIDE 0.5 MG/2.5 ML VIAL.NEB IH ×3 (15:11→23:03)
[2023-08-08] MEDS: PANTOPRAZOLE SODIUM 40 MG VIAL IV (17:15)
[2023-08-08] MEDS: AZITHROMYCIN 250 MG in 0.9 % SODIUM CHLORIDE 250 ML IV (17:15)
[2023-08-08] MEDS: ENOXAPARIN SODIUM 40 MG/0.4 ML SYRINGE SUBQ (17:16)
--- NOTE | 2023-08-08 18:49 | PC.NURSE ---
1800- BP alarmed 84/52. Contacted dr. Kern and received orders to give LR bolus and decreased propofol. [id number] 82/56 1810 stopped Percedex and decreased propofol to 40 1816 - 69\58 1826- 85\51 1850- 81/58, LR completed bolus, propofol remains at 40, Percedex on hold.
[2023-08-08] MEDS: PROPOFOL 1,000 MG/100 ML VIAL 15.12 MG IV (19:19)
[2023-08-08] MEDS: DEXMEDETOMIDINE HCL 200 MCG in 0.9 % SODIUM CHLORIDE 50 ML 9.5 MCG IV (22:07)
[2023-08-08] MEDS: PROPOFOL 1,000 MG/100 ML VIAL 18.9 MG IV (23:59)
[2023-08-09] VITALS (175 sets, daily range): BP systolic 82–139; BP diastolic 60–96; PULSE 73–95; RESP 19–28; TEMP 36.4–37.7; O2SAT 94–100
[2023-08-09] MEDS: DEXMEDETOMIDINE HCL 200 MCG in 0.9 % SODIUM CHLORIDE 50 ML 9.828 MCG IV (03:30)
[2023-08-09] MEDS: LEVALBUTEROL HCL 0.63 MG/3 ML VIAL.NEB IH ×6 (03:34→23:15)
[2023-08-09] MEDS: IPRATROPIUM BROMIDE 0.5 MG/2.5 ML VIAL.NEB IH ×6 (03:34→23:15)
[2023-08-09] MEDS: METHYLPREDNISOLONE SOD SUCC PF 40 MG/ML VIAL IVP ×4 (04:01→22:05)
[2023-08-09 04:16] LABS: Basophils Percent Auto 0.1 % (0.2-2.0); Hematocrit 33.7 % (36.0-48.0); Hemoglobin 9.9 g/dL (12.0-16.0); Immature Granulocytes Abs Auto 0.09 10^3/uL (0.00-0.03); Immature Granulocytes Pct Auto 0.5 % (0.0-0.5); Lymphocytes Absolute Auto 0.5 10^3/uL (1.2-3.8); Lymphocytes Percent Auto 3.1 % (20.5-60.0); Mean Corpuscular HGB Conc 29.4 g/dL (29.9-35.2); Mean Corpuscular Volume 78.4 fL (81.0-99.0); Mean Platelet Volume 9.7 fL (9.5-13.5); Monocytes Absolute Auto 0.8 10^3/uL (0.3-0.8); Monocytes Percent Auto 4.5 % (1.7-12.0); Neutrophils Absolute Auto 16.1 10^3/uL (1.4-6.5); Neutrophils Percent Auto 91.8 % (43.0-75.0); Platelet Count 274 10^3/uL (150-450); Red Cell Distribution Width 19.2 % (11.0-15.0); White Blood Count 17.6 10^3/uL (4.0-11.0)
[2023-08-09 04:23] LABS: Anion Gap 8.8; BUN Creatinine Ratio 45.7; Calcium 8.4 mg/dL (8.5-10.1); Carbon Dioxide 31.8 mmol/L (21.0-32.0); Chloride 106 mmol/L (98-107); Estimated GFR (African America >60 (>=60); Estimated GFR (Non-African Ame >60 (>=60); Glucose 149 mg/dL (74-106); Potassium 4.6 mmol/L (3.5-5.1); Sodium 142 mmol/L (136-145)
[2023-08-09 04:27] LABS: Magnesium 2.5 mg/dL (1.8-2.4)
[2023-08-09] MEDS: PANTOPRAZOLE SODIUM 40 MG VIAL IV ×2 (05:24→16:52)
[2023-08-09 05:41] LABS: pH ABG 7.396 (7.350-7.450)
[2023-08-09 05:42] LABS: Allen Test POSITIVE (POSITIVE); Base Excess ABG 6.4 mmol/L (-2.0-2.0); Fractionated Inspired Oxygen 30 %; HCO3 ABG 31.3 mmol/L (22.0-26.0); O2 Mode VENTILATOR; Oxygen Saturation ABG 96.3 %; Puncture Site L RADIAL; Rate 18; Tidal Volume 400; Vent Mode A/C
[2023-08-09 05:44] LABS: ABG PCO2 51.1 mmHg (35.0-45.0)
[2023-08-09] MEDS: PROPOFOL 1,000 MG/100 ML VIAL 15.12 MG IV ×3 (07:36→15:57)
[2023-08-09] MEDS: LACTATED RINGER'S SOLUTION 1,000 ML 200 ML IV ×3 (07:36→20:20)
[2023-08-09] MEDS: DEXMEDETOMIDINE HCL 200 MCG in 0.9 % SODIUM CHLORIDE 50 ML IV ×2 (07:37→13:14)
--- NOTE | 2023-08-09 08:24 | PM.PN ---
Progress Note: Subjective Subjective Interval history: Patient is currently in the ICU and is currently intubated at the time of exam. some issues with hypotension yesterday evening but seemed to respond to fluid bolus and decreasing propofol. Still seems to be in bronchospasm. ABGs are improving slightly. No family at bedside today. Exam Narrative Exam Narrative: General: currently intubated and sedated Heart: Normal rate and rhythm, no murmurs/rubs/gallops Lungs: audible wheezes, no crackles and diminished breath sounds all lung tirado Abdomen: Normal audible bowel sounds, no distension, No palpable masses, no organomegaly, no rebound/guarding/ or rigidity Musculoskeletal: no swelling bilateral lower extremities Constitutional Vital Signs, click to edit/add: Last Vital Signs Temp 99 F 08/08/23 19:00 Pulse 80 08/09/23 06:55 Resp 20 08/09/23 06:55 BP 96/70 08/09/23 06:00 Pulse Ox 98 08/09/23 06:55 O2 Del Method Mechanical Ventilator 08/09/23 06:55 O2 Flow Rate 30 08/08/23 19:17 FiO2 30 08/09/23 06:55 Progress Note: Objective Labs Labs: Short CBC 08/09/23 Range/Units 03:56 WBC 17.6 H (4.0-11.0) 10^3/uL Hgb 9.9 L (12.0-16.0) g/dL Hct 33.7 L (36.0-48.0) % Plt Count 274 (150-450) 10^3/uL BMP 08/09/23 03:56 Sodium 142 Potassium 4.6 Chloride 106 Carbon Dioxide 31.8 BUN 32.0 H Creatinine 0.70 Glucose 149 H Calcium 8.4 L Progress Note: A&P Assessment and Plan (1) Status asthmaticus: Assessment and Plan: patient currently intubated, pulmonary consult for vent management, last ABG showed a pH of 7.39 which is been improving on current vent settings, patient has hyperspastic. Continue IV azithromycin, IV Rocephin, IV Solu-Medrol. Appreciate pulmonary input. Once patient is stable will get a CTA of the chest (2) Acute respiratory failure with hypoxia and hypercapnia: Assessment and Plan: continue IV azithromycin and Rocephin ventilated (3) Anxiety and depression: Assessment and Plan: continue home medications once extubated (4) Migraine: Assessment and Plan: and continue home medications once extubated (5) GERD (gastroesophageal reflux disease): Assessment and Plan: added protonix 40mg IV BID Plan patient a full code Continue Lovenox for deep vein thrombosis prophylaxis Due to patient's worsening condition, currently intubated patient will be here several more days
[2023-08-09] MEDS: CEFTRIAXONE 1,000 MG in 0.9 % SODIUM CHLORIDE 50 ML 100 MG IV ×2 (10:25→22:05)
[2023-08-09] MEDS: 0.9 % SODIUM CHLORIDE 250 ML 10 ML IV (10:26)
[2023-08-09] MEDS: CITALOPRAM HYDROBROMIDE 20 MG TABLET 40 MG PO (10:27)
[2023-08-09] MEDS: BUDESONIDE 0.5 MG/2 ML AMPULE NEB IH ×2 (10:53→23:15)
--- NOTE | 2023-08-09 11:31 | CM.NOTE ---
Pt remains on ventilator, discussed CTA for today if ok with Dr. Caputo.
[2023-08-09] MEDS: NICOTINE 14 MG PATCH TD (15:21)
[2023-08-09] MEDS: DEXMEDETOMIDINE HCL 200 MCG in 0.9 % SODIUM CHLORIDE 50 ML 11.466 MCG IV (16:52)
[2023-08-09] MEDS: AZITHROMYCIN 500 MG in 0.9 % SODIUM CHLORIDE 250 ML 250 MG IV (16:53)
--- NOTE | 2023-08-09 19:03 | PC.NURSE ---
1730 Patient had an increased work of breathing noted to be at approx 41 breaths per minute. Patient required suctioning with no improvement noted. Dr. Caputo was on the unit and discussed increasing sedation with him at this time. Verbal orders given to increase sedation according to titration protocol. 1800 Patient tolerated sedation increase at this time. Will continue to monitor patient.
--- NOTE | 2023-08-09 21:36 | P.PLPN_ITS ---
Progress Note: A&P Assessment and Plan (1) Status asthmaticus: Assessment and Plan: 1. Status asthmaticus, secondary to rhinovirus. Showing some signs of improvement, but remains quite bronchospastic on examination. Continue nebs, steroids. She is not stable for sedation vacation or weaning trial today. 2. Acute hypoxic & hypercapnic respiratory failure. Secondary to status asthmaticus. Improvement in gases, but still has a degree of hypercapnia. Will continue to monitor. 3. Rhinovirus bronchitis. CT chest ordered - no pulmonary emboli, mass, or infiltrate - this appears to be mainly asthma/bronchospasm at this point. 4. Tobacco abuse. Smoking cessation is paramount at this time. Plan Patient remains critically ill requiring intensive care unit management. Remains hypercapnic secondary to status asthmaticus. Anticipate break in bronchospasm in 24-48 hours. 35 minutes critical care time. Subjective Subjective Interval history: Discussed with RN, RT. Patient remains on ventilator. ABG slightly improved. Doing better on Precedex + propofol for sedation. More inspiratory wheezes today suggesting some mild improvement in bronchospasm. No significant issues overnight. Exam Constitutional Vital Signs, click to edit/add: Last Vital Signs Temp 97.6 F 08/09/23 16:39 Pulse 85 08/09/23 21:00 Resp 26 H 08/09/23 19:30 BP 121/82 08/09/23 19:00 Pulse Ox 95 08/09/23 21:00 O2 Del Method Mechanical Ventilator 08/09/23 19:30 O2 Flow Rate 30 08/08/23 19:17 FiO2 30 08/09/23 19:30 Documenting provider has reviewed patient's vital signs: yes Common normals: no apparent distress General appearance: comfortable [facility] Other: 7.0 ETT Chest Common normals: inspection of chest normal Respiratory Other: More inspiratory wheezes today, with expiratory wheezes - more air movement. No rhonchi. Questionable abdominal breathing at times, but patient appeared more comfortable when compared to yesterday. Cardio Rate: regular rate Rhythm: regular rhythm Peripheral pulses: dorsalis pedis pulses present bilateral 2+ GI Common normals: soft to palpation and non-tender Bladder/kidney exam: catheter in place Catheter type (Female): urethral Extremity Common normals: normal to inspection and no clubbing, cyanosis or edema Neuro Other: Sedated, but withdraws to noxious stimuli Psych Other: Sedated
[2023-08-09] MEDS: PRAMIPEXOLE 1 MG TABLET 0.5 MG PO (22:08)
[2023-08-09] MEDS: MONTELUKAST SODIUM 10 MG TABLET PO (22:09)
[2023-08-09] MEDS: DEXMEDETOMIDINE HCL 200 MCG in 0.9 % SODIUM CHLORIDE 50 ML 13.104 MCG IV (22:28)
[2023-08-09] MEDS: PROPOFOL 1,000 MG/100 ML VIAL 18.9 MG IV (22:30)
[2023-08-09 22:32] LABS: Glucometer 144 mg/dL (74-106)
[2023-08-10] VITALS (132 sets, daily range): BP systolic 121–154; BP diastolic 78–101; PULSE 64–107; RESP 18–30; TEMP 36.8–37.3; O2SAT 95–100
[2023-08-10] MEDS: LACTATED RINGER'S SOLUTION 1,000 ML 200 ML IV ×5 (00:33→21:14)
[2023-08-10] MEDS: DEXMEDETOMIDINE HCL 200 MCG in 0.9 % SODIUM CHLORIDE 50 ML 14.742 MCG IV (03:00)
[2023-08-10] MEDS: ONDANSETRON PF 4 MG/2 ML VIAL IV (03:39)
[2023-08-10] MEDS: METHYLPREDNISOLONE SOD SUCC PF 40 MG/ML VIAL IVP ×4 (03:39→21:14)
[2023-08-10] MEDS: LEVALBUTEROL HCL 0.63 MG/3 ML VIAL.NEB IH ×6 (03:50→23:36)
[2023-08-10] MEDS: IPRATROPIUM BROMIDE 0.5 MG/2.5 ML VIAL.NEB IH ×6 (03:50→23:36)
[2023-08-10] MEDS: PROPOFOL 1,000 MG/100 ML VIAL 17.01 MG IV (04:11)
[2023-08-10] MEDS: PANTOPRAZOLE SODIUM 40 MG VIAL IV ×2 (04:15→16:54)
[2023-08-10 04:41] LABS: Basophils Percent Auto 0.2 % (0.2-2.0); Hematocrit 31.3 % (36.0-48.0); Hemoglobin 9.3 g/dL (12.0-16.0); Immature Granulocytes Abs Auto 0.11 10^3/uL (0.00-0.03); Immature Granulocytes Pct Auto 0.8 % (0.0-0.5); Lymphocytes Absolute Auto 0.5 10^3/uL (1.2-3.8); Lymphocytes Percent Auto 3.6 % (20.5-60.0); Mean Corpuscular HGB Conc 29.7 g/dL (29.9-35.2); Mean Corpuscular Hemoglobin 23.4 pg (26.7-34.0); Mean Corpuscular Volume 78.6 fL (81.0-99.0); Monocytes Absolute Auto 0.6 10^3/uL (0.3-0.8); Monocytes Percent Auto 4.5 % (1.7-12.0); Neutrophils Percent Auto 90.9 % (43.0-75.0); Platelet Count 215 10^3/uL (150-450); Red Blood Count 3.98 10^6/uL (4.20-5.40); Red Cell Distribution Width 18.7 % (11.0-15.0); White Blood Count 13.2 10^3/uL (4.0-11.0)
[2023-08-10 05:03] LABS: BUN Creatinine Ratio 46.8; Calcium 8.4 mg/dL (8.5-10.1); Carbon Dioxide 29.3 mmol/L (21.0-32.0); Chloride 107 mmol/L (98-107); Estimated GFR (African America >60 (>=60); Estimated GFR (Non-African Ame >60 (>=60); Glucose 156 mg/dL (74-106); Potassium 4.3 mmol/L (3.5-5.1); Sodium 142 mmol/L (136-145)
[2023-08-10 05:40] LABS: ABG PCO2 48.5 mmHg (35.0-45.0); Allen Test POSITIVE (POSITIVE); Fractionated Inspired Oxygen 30 %; HCO3 ABG 30.7 mmol/L (22.0-26.0); O2 Mode VENTILATOR; Oxygen Saturation ABG 97.2 %; PO2 ABG 85.8 mmHg (80.0-100.0)
[2023-08-10 05:41] LABS: Puncture Site L RADIAL; Rate 18; Tidal Volume 400; Vent Mode A/C
[2023-08-10] MEDS: DEXMEDETOMIDINE HCL 200 MCG in 0.9 % SODIUM CHLORIDE 50 ML 11.466 MCG IV ×2 (07:18→11:55)
--- NOTE | 2023-08-10 08:05 | PM.PN ---
Progress Note: Subjective Subjective Interval history: Patient is currently in the ICU and is currently intubated at the time of exam. Still seems to be in bronchospasm but improving. ABGs are improving No family at bedside today. No significant issues overnight. Exam Narrative Exam Narrative: General: currently intubated and sedated Heart: Normal rate and rhythm, no murmurs/rubs/gallops Lungs: audible wheezes, no crackles, and diminished breath sounds all lung tirado Abdomen: Normal audible bowel sounds, no distension, No palpable masses, no organomegaly, no rebound/guarding/ or rigidity Musculoskeletal: no swelling bilateral lower extremities Constitutional Vital Signs, click to edit/add: Last Vital Signs Temp 99.2 F 08/10/23 00:20 Pulse 68 08/10/23 07:13 Resp 22 08/10/23 07:13 BP 145/96 H 08/10/23 05:30 Pulse Ox 98 08/10/23 07:13 O2 Del Method Mechanical Ventilator 08/10/23 07:13 O2 Flow Rate 30 08/08/23 19:17 FiO2 30 08/10/23 07:13 Progress Note: Objective Labs Labs: Short CBC 08/10/23 Range/Units 04:02 WBC 13.2 H (4.0-11.0) 10^3/uL Hgb 9.3 L (12.0-16.0) g/dL Hct 31.3 L (36.0-48.0) % Plt Count 215 (150-450) 10^3/uL BMP 08/10/23 04:02 Sodium 142 Potassium 4.3 Chloride 107 Carbon Dioxide 29.3 BUN 22.0 H Creatinine 0.47 L Glucose 156 H Calcium 8.4 L Progress Note: A&P Assessment and Plan (1) Status asthmaticus: Assessment and Plan: patient currently intubated, pulmonary consult for vent management, last ABG showed a pH of 7.4 which is been improving on current vent settings, patient is hyperspastic, per pulm trying to wean vent today. Continue IV azithromycin, IV Rocephin, IV Solu-Medrol. Appreciate pulmonary input. CTA of the chest negative (2) Acute respiratory failure with hypoxia and hypercapnia: Assessment and Plan: continue IV azithromycin and Rocephin ventilated (3) Anxiety and depression: Assessment and Plan: continue home medications once extubated (4) Migraine: Assessment and Plan: and continue home medications once extubated (5) GERD (gastroesophageal reflux disease): Assessment and Plan: added protonix 40mg IV BID Plan patient a full code Continue Lovenox for deep vein thrombosis prophylaxis Due to patient's worsening condition, currently intubated patient will be here several more days
--- NOTE | 2023-08-10 08:36 | XR_ITS ---
The [address] [address] Patient Name: MELE MENDEZ MRN: [facility]:[id number] date: 1975 Sex: F Assigned Patient Location: ICU Current Patient Location: ICU Accession/Order Number: [id number] Exam Date: 08/10/2023 08:50 Report Date: 08/10/2023 09:16 At the request of: KARLI BARRETO Procedure: XR acute abdomen series XR acute abdomen series, 08/10/2023 8:50 AM EDT, OH001 INDICATION: intubation, no BMs COMPARISON: Chest radiograph from 08/08/2023. TECHNIQUE: 3 supine views of the abdomen obtained. A single view of the chest. FINDINGS: An endotracheal tube remains in standard position. A nasogastric tube is seen with its tip and side-port projected over the region of the stomach. The cardiomediastinal silhouette is within normal limits. The lungs are hyperinflated which can be seen with reactive airways disease/COPD. No acute infiltrate is seen. There is no evidence of pneumothorax or pleural effusion. There is mild distention of the transverse colon. Gas and stool are seen in nondilated colon proximal and distal to this. No suspicious calcifications are projected over the kidneys, ureters or bladder. No free peritoneal air is seen. The osseous and surrounding soft tissue structures appear within normal limits. Andrew catheter projects over the region of the urinary bladder. XR/XR acute abdomen series IMPRESSION: Endotracheal tube and nasogastric tube project in standard position. No obstruction or free air is seen. There is question of constipation. COPD without evidence of acute infiltrate. Electronically authenticated by: REVA DESHPANDE Date: 08/10/2023 09:16
[2023-08-10] MEDS: POLYETHYLENE GLYCOL 3350 17 GM POWDER PACKET PO (09:40)
[2023-08-10] MEDS: CITALOPRAM HYDROBROMIDE 20 MG TABLET 40 MG PO (09:40)
[2023-08-10] MEDS: NICOTINE 14 MG PATCH TD (09:40)
[2023-08-10] MEDS: PROPOFOL 1,000 MG/100 ML VIAL 15.12 MG IV (09:41)
--- NOTE | 2023-08-10 10:12 | CM.NOTE ---
Rounds made with Dr. Kern, planning to do wean trial with ventilator today. Will follow up with pt about discharge planning after extubation.
[2023-08-10] MEDS: CEFTRIAXONE 1,000 MG in 0.9 % SODIUM CHLORIDE 50 ML 100 MG IV ×2 (10:27→21:14)
[2023-08-10] MEDS: BUDESONIDE 0.5 MG/2 ML AMPULE NEB IH ×2 (10:47→23:36)
--- NOTE | 2023-08-10 12:33 | PM.PLPN ---
Progress Note: A&P Assessment and Plan (1) Status asthmaticus: Assessment and Plan: 1. Status asthmaticus, secondary to rhinovirus. ABG and clinical status are improved. Though she still has wheezes, after discussion with RN and RT, will begin sedation vacation and weaning protocol. The main concern is that the patient becomes agitated very quickly with lightening of sedation - suggested we start with weaning down propofol and then Precedex, especially as Precedex does not suppress respiratory drive. Discussed the possibility that we may need to go for broke and pull the ETT and be prepared for bridging with either Vapotherm or BiPAP. 2. Acute hypoxic & hypercapnic respiratory failure. Secondary to status asthmaticus. Improved, but still has remnant pCO2...possible she could be developing a chronic CO2 retention despite being only 47. 3. Rhinovirus bronchitis. Clinically resolving - no infiltrates on CT imaging 08/09/2023. 4. Tobacco abuse. Smoking cessation is paramount at this time. Plan Patient remains critically ill requiring intensive care unit management. Remain on ventilator with sedation at this time. 35 minutes critical care time. Subjective Subjective Interval history: Discussed with RN & RT. Patient was anxious yesterday, but better controlled with Precidex on top of propofol. Breathing is less laborious today. More air movement, less wheezing. ABG improved, has remnant elevated pCO2, but it is possible this is her baseline. No concerns overnight per nursing. Exam Constitutional Vital Signs, click to edit/add: Last Vital Signs Temp 98.5 F 08/10/23 08:00 Pulse 77 08/10/23 11:40 Resp 22 08/10/23 10:49 BP 145/95 H 08/10/23 11:30 Pulse Ox 99 08/10/23 11:40 O2 Del Method Mechanical Ventilator 08/10/23 07:13 O2 Flow Rate 30 08/08/23 19:17 FiO2 30 08/10/23 10:49 Documenting provider has reviewed patient's vital signs: yes Common normals: no apparent distress General appearance: comfortable HENMT Other: 7.0 ETT Chest Common normals: inspection of chest normal Chest: symmetrical chest wall rise; no crepitus Respiratory Other: More air movement. Almost no inspiratory wheezes, less expiratory wheezes - decreased from yesterday. No rhonchi. Cardio Rate: regular rate Rhythm: regular rhythm GI Common normals: Normal to inspection, nondistended, normoactive bowel sounds present Bladder/kidney exam: catheter in place Catheter type (Female): urethral Extremity Common normals: no clubbing, cyanosis or edema Neuro Other: Sedated Psych Attitude: calm
--- NOTE | 2023-08-10 13:19 | RESP.RT ---
Placed pt on CPAP 5,PS10, pt tolerating well at this time
--- NOTE | 2023-08-10 13:41 | RESP.RT ---
Patient extubated per DR. HEREDIA without any problems , placed on 4 L NC , SVN given after extubation pt pox 98% HR 88 BRS equal bilat with slight exp. wheeze.
--- NOTE | 2023-08-10 13:51 | RESP.RT ---
Patient extubated and placed on 4 LNC ,Pt tolerating well at this time pox 98% hr87, rr20
--- NOTE | 2023-08-10 14:12 | CM.NOTE ---
Discussed with pt about asthma, COPD and preventative medicine. Pt states she was scheduled to see a wearing apparel folder but did not go to appt. Pt does verbalizes she would like to establish with pulmonology. Pt also inquiring about smoking cessation, discussed with Dr. Kern.
[2023-08-10] MEDS: 0.9 % SODIUM CHLORIDE 250 ML 10 ML IV (15:34)
[2023-08-10] MEDS: AZITHROMYCIN 500 MG in 0.9 % SODIUM CHLORIDE 250 ML 250 MG IV (16:53)
[2023-08-10] MEDS: PRAMIPEXOLE 1 MG TABLET 0.5 MG PO (21:14)
[2023-08-10] MEDS: MONTELUKAST SODIUM 10 MG TABLET PO (21:14)
[2023-08-11] VITALS (72 sets, daily range): BP systolic 129–143; BP diastolic 83–96; PULSE 70–116; RESP 4–24; TEMP 36.6–36.9; O2SAT 91–98
--- NOTE | 2023-08-11 00:58 | RESP.RT ---
placed on room air at this time
[2023-08-11] MEDS: IPRATROPIUM BROMIDE 0.5 MG/2.5 ML VIAL.NEB IH ×6 (04:04→23:21)
[2023-08-11] MEDS: LEVALBUTEROL HCL 0.63 MG/3 ML VIAL.NEB IH ×6 (04:04→23:22)
[2023-08-11 05:07] LABS: Hematocrit 28.3 % (36.0-48.0); Hemoglobin 8.4 g/dL (12.0-16.0); Immature Granulocytes Abs Auto 0.13 10^3/uL (0.00-0.03); Immature Granulocytes Pct Auto 1.5 % (0.0-0.5); Lymphocytes Absolute Auto 0.6 10^3/uL (1.2-3.8); Lymphocytes Percent Auto 6.6 % (20.5-60.0); Mean Corpuscular HGB Conc 29.7 g/dL (29.9-35.2); Mean Corpuscular Volume 77.3 fL (81.0-99.0); Mean Platelet Volume 10.1 fL (9.5-13.5); Monocytes Absolute Auto 0.5 10^3/uL (0.3-0.8); Monocytes Percent Auto 5.7 % (1.7-12.0); Neutrophils Absolute Auto 7.4 10^3/uL (1.4-6.5); Neutrophils Percent Auto 86.2 % (43.0-75.0); Platelet Count 192 10^3/uL (150-450); Red Blood Count 3.66 10^6/uL (4.20-5.40); Red Cell Distribution Width 18.9 % (11.0-15.0); White Blood Count 8.6 10^3/uL (4.0-11.0)
[2023-08-11 05:20] LABS: Calcium 8.2 mg/dL (8.5-10.1); Carbon Dioxide 27.7 mmol/L (21.0-32.0); Chloride 106 mmol/L (98-107); Estimated GFR (African America >60 (>=60); Estimated GFR (Non-African Ame >60 (>=60); Glucose 164 mg/dL (74-106); Potassium 3.7 mmol/L (3.5-5.1); Sodium 140 mmol/L (136-145)
[2023-08-11] MEDS: LACTATED RINGER'S SOLUTION 1,000 ML 200 ML IV ×2 (05:23→11:44)
[2023-08-11] MEDS: PANTOPRAZOLE SODIUM 40 MG VIAL IV ×2 (05:23→17:31)
[2023-08-11] MEDS: METHYLPREDNISOLONE SOD SUCC PF 40 MG/ML VIAL IVP ×4 (05:23→21:51)
[2023-08-11 05:59] LABS: ABG PCO2 37.4 mmHg (35.0-45.0); Allen Test POSITIVE (POSITIVE); Base Excess ABG 4.3 mmol/L (-2.0-2.0); HCO3 ABG 27.8 mmol/L (22.0-26.0); O2 Mode ROOM AIR; Oxygen Saturation ABG 92.8 %; PO2 ABG 60.3 mmHg (80.0-100.0); pH ABG 7.479 (7.350-7.450)
[2023-08-11 06:00] LABS: Puncture Site RR
--- NOTE | 2023-08-11 08:53 | PM.PN ---
Progress Note: Subjective Subjective Interval history: patient was extubated yesterday. This morning is sitting up in chair. reports coughing more with sputum production and is finally getting some mucus up. She denies shortness of breath. She is not requiring oxygen at this time. Patient still has Andrew catheter. She has an appetite and has been tolerating clears, will advance today. Patient denies fevers or chills, shortness of breath or chest pain. Daughters are present at bedside. Exam Narrative Exam Narrative: General: Patient is alert, and oriented to person, place and time with normal affect, proper hygiene Skin: no visible rashes, or ulcers Head: atraumatic, acephalic Eyes: PERRLA, no nystagmus present, conjunctiva clear, no scleral icterus Ears: normal gross auditory acuity Nose: symmetric, no discharge, no maxillary or frontal sinus tenderness Mouth/Throat: no erythema, exudate, or tonsillar enlargement, poor dentition Neck: no masses palpated, normal thyroid Heart: Normal rate and rhythm, no murmurs/rubs/gallops Lungs: slight audible wheezes but much improved from yesterdays exam, no crackles Abdomen: Normal audible bowel sounds, no distension, No palpable masses, no organomegaly, no rebound/guarding/ or rigidity Musculoskeletal: no swelling bilateral lower extremities Neuro: CN II-X grossly intact Constitutional Vital Signs, click to edit/add: Last Vital Signs Temp 97.9 F 08/11/23 08:23 Pulse 75 08/11/23 08:23 Resp 18 08/11/23 08:23 BP 135/94 H 08/11/23 08:23 Pulse Ox 92 L 08/11/23 08:23 O2 Del Method Room Air 08/11/23 07:47 O2 Flow Rate 1 08/10/23 23:36 FiO2 1 08/11/23 00:25 Progress Note: Objective Labs Labs: Short CBC 08/11/23 Range/Units 04:34 WBC 8.6 (4.0-11.0) 10^3/uL Hgb 8.4 L (12.0-16.0) g/dL Hct 28.3 L (36.0-48.0) % Plt Count 192 (150-450) 10^3/uL BMP 08/11/23 04:34 Sodium 140 Potassium 3.7 Chloride 106 Carbon Dioxide 27.7 BUN 24.0 H Creatinine 0.49 L Glucose 164 H Calcium 8.2 L Progress Note: A&P Assessment and Plan (1) Asthma with acute exacerbation: Assessment and Plan: Continue IV azithromycin, IV Rocephin, IV Solu-Medrol. Appreciate pulmonary input. CTA of the chest negative, extubated. continue nebs. (2) Anxiety and depression: Assessment and Plan: continue home medications (3) Tobacco abuse: Assessment and Plan: plans to stop smoking, nicotine patch (4) GERD (gastroesophageal reflux disease): Assessment and Plan: continue protonix 40mg IV BID (5) Migraine: Assessment and Plan: continue home medications Plan patient a full code Continue Lovenox for deep vein thrombosis prophylaxis hopeful discharge home tomorrow if continued improvement
[2023-08-11 09:04] LABS: Percent Iron Saturation 5.4 %
[2023-08-11] MEDS: CITALOPRAM HYDROBROMIDE 20 MG TABLET 40 MG PO (09:17)
[2023-08-11] MEDS: CEFTRIAXONE 1,000 MG in 0.9 % SODIUM CHLORIDE 50 ML 100 MG IV ×2 (09:17→21:56)
[2023-08-11] MEDS: BUDESONIDE 0.5 MG/2 ML AMPULE NEB IH ×2 (11:12→23:22)
--- NOTE | 2023-08-11 12:36 | CM.NOTE ---
Rounds made with Dr. Kern, no discharge today. Pt up ad benita in room, pt verbalizes she feels much better. Pt in agreement to f/u with Dr. Caputo as outpt to follow for disease management. Talked with cardiopulmonary for smoking cessation and education. They will see pt today. Also discussed with pt about pulmonary rehab as outpt and discussion to have with Dr. Caputo if she would qualify. Pt verbalizes understanding.
--- NOTE | 2023-08-11 15:37 | CM.NOTE ---
Dr. Caputo concerned that pt has voiced she was fired from her job at [employer], she will need inhalers at discharge and concerned about insurance coverage. 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 Attempted to call Jhoana Lee, brick sorter at bedside with pt. No answer from Jhoana, pt left her a message giving her consent to contact myself(case-management) for further information to better assist us in discharge planning and discharge medications if pt will be uninsured. Awaiting call back for further planning.
--- NOTE | 2023-08-11 16:39 | P.PLPN_ITS ---
Progress Note: A&P Assessment and Plan (1) Status asthmaticus: Assessment and Plan: 1. Status asthmaticus, secondary to rhinovirus. Patient is improving, but remains quite bronchospastic. However, I anticipate that she should continue to improve with bronchodilators as well as systemic and inhaled steroids. I highly recommended outpatient F/U, as she will need close monitoring given the severity of her recent illness. She will need outpatient PFT eventually (after she recovers ~3-4 weeks). She asked if she could see me outpatient - I stated I would be happy to see her. 2. Acute hypoxic & hypercapnic respiratory failure. Secondary to status asthmaticus. ABG this AM shows improvement in gases. No further ABG required. 3. Rhinovirus bronchitis. Clinically resolving. 4. Tobacco abuse. Discussed smoking cessation with her now that she is awake. She voiced she has no desire to restart especially after this admission. Plan Given how significant her status asthmatic was, I recommend going straight to triple inhaled therapy. I would recommend Trelegy 100, 1 puff QD. If this is not covered, Breztri 2 puffs BID (though only FDA approved for COPD, there is no reason it cannot be given off-label for asthma). I also recommend a prolonged prednisone taper, such as 60mg x3 days, 40mg x 3days, 20mg x3days or something like that. My concern is prescription coverage, especially with her company allegedly firing her? I spoke with case management to clarify if this were true, and if so, is there tail coverage for the patient. Once again, I would be willing to write a letter stating that the patient was critically ill and was seen by me in the hospital if that were to be needed. Subjective Subjective Interval history: Successful ventilator liberation yesterday. Oxygenation rapidly improved and she was able to transition to RA. She was seen sitting up in a chair on RA today. She remains quite bronchospastic, but air exchange is good. She is not able to recall anything since she collapsed at her house prior to admission. Now that she is awake, I could obtain a better history. She states she has had issues with asthma off and on, but was never this bad to the point she required hospitalization, let alone a ventilator. She is only on Singulair and albuterol at home - she states no one is actively managing her asthma. She stated she would like to F/U with me because she wants to breathe better. She said that she is done smoking after this whole ordeal. We discussed outpatient management. I asked her about her insurance, as I was trying to assess what inhaler to use that would be covered. She voiced that she is upset that her employment allegedly fired her due to her hospital admission? I told her I would be happy to provide a letter stating that she was in the ICU with a life threatening episode of status asthmaticus causing ventilator- dependent respiratory failure. Exam Constitutional Vital Signs, click to edit/add: Last Vital Signs Temp 98.1 F 08/11/23 16:06 Pulse 83 08/11/23 16:06 Resp 16 08/11/23 16:06 BP 143/93 H 08/11/23 16:06 Pulse Ox 95 08/11/23 16:06 O2 Del Method Room Air 08/11/23 16:06 O2 Flow Rate 1 08/10/23 23:36 FiO2 1 08/11/23 00:25 Documenting provider has reviewed patient's vital signs: yes Common normals: no apparent distress General appearance: cooperative and comfortable; not in distress, not anxious and not lethargic HENMT Other: No candidiasis. Mild posterior erythema secondary to ETT. Chest Common normals: inspection of chest normal Respiratory Other: Continues to have diffuse inspiratory and expiratory wheezes, but the amount of airflow is markedly increased compared to yesterday. No rhonchi or crackles. Breathing does not appear labored. Cardio Rate: regular rate Rhythm: regular rhythm GI Common normals: Normal to inspection, nondistended, normoactive bowel sounds present Extremity Common normals: normal to inspection Neuro Common normals: no focal motor deficits Speech: speech normal Psych Common normals: mental status grossly normal Attitude: calm and engaged
[2023-08-11] MEDS: AZITHROMYCIN 500 MG in 0.9 % SODIUM CHLORIDE 250 ML 250 MG IV (17:31)
[2023-08-11] MEDS: PRAMIPEXOLE 1 MG TABLET 0.5 MG PO (21:51)
[2023-08-11] MEDS: MONTELUKAST SODIUM 10 MG TABLET PO (21:51)
[2023-08-12] VITALS (17 sets, daily range): BP systolic 130–159; BP diastolic 76–97; PULSE 67–98; RESP 16–20; TEMP 36.7–36.8; O2SAT 90–97
[2023-08-12] MEDS: LEVALBUTEROL HCL 0.63 MG/3 ML VIAL.NEB IH ×6 (03:02→23:33)
[2023-08-12] MEDS: IPRATROPIUM BROMIDE 0.5 MG/2.5 ML VIAL.NEB IH ×6 (03:02→23:33)
[2023-08-12 03:57] LABS: Basophils Percent Auto 0.1 % (0.2-2.0); Hematocrit 26.7 % (36.0-48.0); Hemoglobin 8.4 g/dL (12.0-16.0); Immature Granulocytes Abs Auto 0.38 10^3/uL (0.00-0.03); Immature Granulocytes Pct Auto 4.5 % (0.0-0.5); Lymphocytes Absolute Auto 0.5 10^3/uL (1.2-3.8); Mean Corpuscular HGB Conc 31.5 g/dL (29.9-35.2); Mean Corpuscular Hemoglobin 23.7 pg (26.7-34.0); Mean Corpuscular Volume 75.2 fL (81.0-99.0); Mean Platelet Volume 9.6 fL (9.5-13.5); Monocytes Absolute Auto 0.4 10^3/uL (0.3-0.8); Monocytes Percent Auto 4.8 % (1.7-12.0); Neutrophils Absolute Auto 7.2 10^3/uL (1.4-6.5); Neutrophils Percent Auto 84.6 % (43.0-75.0); Platelet Count 168 10^3/uL (150-450); Red Blood Count 3.55 10^6/uL (4.20-5.40); Red Cell Distribution Width 18.7 % (11.0-15.0); White Blood Count 8.5 10^3/uL (4.0-11.0)
[2023-08-12 04:10] LABS: Anion Gap 10.4; BUN Creatinine Ratio 41.3; Calcium 8.3 mg/dL (8.5-10.1); Carbon Dioxide 26.4 mmol/L (21.0-32.0); Chloride 104 mmol/L (98-107); Estimated GFR (African America >60 (>=60); Estimated GFR (Non-African Ame >60 (>=60); Glucose 198 mg/dL (74-106); Potassium 3.8 mmol/L (3.5-5.1); Sodium 137 mmol/L (136-145)
[2023-08-12] MEDS: PANTOPRAZOLE SODIUM 40 MG VIAL IV ×2 (04:21→16:50)
[2023-08-12] MEDS: METHYLPREDNISOLONE SOD SUCC PF 40 MG/ML VIAL IVP ×4 (04:21→21:23)
--- NOTE | 2023-08-12 08:17 | XR_ITS ---
The [address] [address] Patient Name: MELE MENDEZ MRN: [id number] date: 1975 Sex: F Assigned Patient Location: ICU Current Patient Location: ICU Accession/Order Number: [id number] Exam Date: 08/12/2023 08:23 Report Date: 08/12/2023 08:48 At the request of: KARLI BARRETO Procedure: XR chest 1V XR chest 1V, 08/12/2023 8:23 AM EDT, OH001 INDICATION: pneumonia COMPARISON: Chest radiograph from 08/10/2023. TECHNIQUE: Frontal view of the chest obtained. FINDINGS: The endotracheal tube and nasogastric tube have been removed. The heart is normal in size. The aorta and mediastinum appear unremarkable. The pulmonary vasculature is normal. The lungs are hyperinflated which can be seen with reactive airways disease/COPD. No acute infiltrate is seen. There is no evidence of pneumothorax or pleural effusion. The osseous structures appear intact. XR/XR chest 1V IMPRESSION: COPD without active pulmonary process or other significant interval change seen. Electronically authenticated by: REVA DESHPANDE Date: 08/12/2023 08:48
--- NOTE | 2023-08-12 08:27 | P.DS_ITS ---
DS: Providers Provider Date of admission: 08/08/23 00:13 Primary care physician: Jose Jennings MD Consults: 08/08/23 05:47 Consult to Pulmonology Routine Consulting Provider: Keagan Caputo Reason for consultation: VDRF Has provider been notified: No 08/10/23 Physical Therapy Eval and Treat Routine Reason for consultation: Recently extubated, evaluation required d/t sedation DS: Diagnosis Discharge Diagnosis (1) Status asthmaticus: DS: Summary Time Spent with Patient Time attestation: Total time spent providing and/or coordinating discharge services: Exam Constitutional Vital Signs, click to edit/add: Last Vital Signs Temp 98.1 F 08/12/23 04:00 Pulse 98 H 08/12/23 08:00 Resp 20 08/12/23 08:00 BP 152/97 H 08/12/23 04:00 Pulse Ox 96 08/12/23 07:32 O2 Del Method Room Air 08/12/23 07:32 O2 Flow Rate 1 08/10/23 23:36 FiO2 1 08/11/23 00:25 DS: Data Data Completed and Pending Labs on day of discharge: Labs from last 24 hours 08/12/23 08/11/23 03:42 04:34 WBC 8.5 RBC 3.55 L Hgb 8.4 L Hct 26.7 L MCV 75.2 L MCH 23.7 L MCHC 31.5 RDW 18.7 H Plt Count 168 MPV 9.6 Neut % (Auto) 84.6 H Lymph % (Auto) 6.0 L Catron % (Auto) 4.8 Eos % (Auto) 0.0 L Baso % (Auto) 0.1 L Neut # (Auto) 7.2 H Lymph # (Auto) 0.5 L Catron # (Auto) 0.4 Eos # (Auto) 0.0 Baso # (Auto) 0.0 Abs Immat Gran (auto) 0.38 H Imm/Tot Granulo (auto) 4.5 H Sodium 137 Potassium 3.8 Chloride 104 Carbon Dioxide 26.4 Anion Gap 10.4 BUN 19.0 H Creatinine 0.46 L Est GFR ( Amer) >60 Est GFR (Non-Af Amer) >60 BUN/Creatinine Ratio 41.3 Glucose 198 H Calcium 8.3 L Iron 22.0 L TIBC 408.0 % Saturation 5.4 Ferritin 11.0 Discharge Plan Discharge Discharge Medications: No Action propranolol 80 mg capsule,extended release 24 hr 80 mg PO DAILY citalopram 40 mg tablet 40 mg PO DAILY sumatriptan succinate 25 mg tablet 25 mg PO Q2H PRN (Reason: migraine headache) Rx Instructions: TAKE 1 TABLET BY MOUTH at the onset OF headache NEEDED, may repeat in 2 (TWO) HOURS one TIME pramipexole 0.5 mg tablet 0.5 mg PO .qhs montelukast 10 mg tablet 10 mg PO .qhs albuterol sulfate [ProAir HFA] 90 mcg/actuation HFA aerosol inhaler 2 inh inhalation Q4H PRN (Reason: shortness of breath or wheezing) baclofen 10 mg tablet 10 mg PO TID PRN (Reason: muscle spasm) bupropion HCl [Wellbutrin SR] 150 mg tablet sustained-release 12 hr 150 mg PO BID albuterol sulfate 2.5 mg /3 mL (0.083 %) solution for nebulization 2.5 mg inhalation Q6H PRN (Reason: shortness of breath or wheezing) Qty: 90 0RF Follow Up Appointments: Dr Caputo Aug 22 @9:00
[2023-08-12] MEDS: CITALOPRAM HYDROBROMIDE 20 MG TABLET 40 MG PO (09:07)
[2023-08-12] MEDS: CEFTRIAXONE 1,000 MG in 0.9 % SODIUM CHLORIDE 50 ML 100 MG IV ×2 (09:07→21:23)
[2023-08-12] MEDS: NICOTINE 14 MG PATCH TD (09:07)
--- NOTE | 2023-08-12 10:16 | SWNOTE1 ---
MATEO called pt's pharmacy to check on the 2 inhalers to see if one would be cheaper than the other. The pharmacy is not able to run either without a script. She did state the insurance pt does have usually is pretty good with coverage, but not able to give me dollar amount of the inhalers. MATEO then asked about good RX card and she stated, they both would be around $620.00 with good rx. At this time there is no way of finding out which inhaler is cheaper without sending a script.
[2023-08-12] MEDS: BUDESONIDE 0.5 MG/2 ML AMPULE NEB IH ×2 (10:57→19:58)
--- NOTE | 2023-08-12 11:23 | CM.NOTE ---
Rounds made with chidi Garner to transfer to Med-Surg today. No discharge needs identified. No call back at this time from Human Resources at her employment to check insurance status for discharge medications.
--- NOTE | 2023-08-12 11:34 | PM.PN ---
Progress Note: Subjective Subjective Interval history: this morning patient is sitting up in bed. reports coughing with more sputum production and is finally getting some mucus up. She denies shortness of breath. She is not requiring oxygen at this time. Patient denies fevers or chills, shortness of breath or chest pain. patient wishes to stop smoking and reports that patches are helping. She also plans to follow-up with Dr. Ruelas as an outpatient. Exam Narrative Exam Narrative: General: Patient is alert, and oriented to person, place and time with normal affect, proper hygiene Skin: no visible rashes, or ulcers Head: atraumatic, acephalic Eyes: PERRLA, no nystagmus present, conjunctiva clear, no scleral icterus Ears: normal gross auditory acuity Nose: symmetric, no discharge, no maxillary or frontal sinus tenderness Mouth/Throat: no erythema, exudate, or tonsillar enlargement, poor dentition Neck: no masses palpated, normal thyroid Heart: Normal rate and rhythm, no murmurs/rubs/gallops Lungs: slight audible wheezes but much improved from yesterdays exam, no crackles Abdomen: Normal audible bowel sounds, no distension, No palpable masses, no organomegaly, no rebound/guarding/ or rigidity Musculoskeletal: no swelling bilateral lower extremities Neuro: CN II-X grossly intact Constitutional Vital Signs, click to edit/add: Last Vital Signs Temp 98.1 F 08/12/23 04:00 Pulse 75 08/12/23 09:55 Resp 20 08/12/23 08:00 BP 152/97 H 08/12/23 04:00 Pulse Ox 95 08/12/23 11:03 O2 Del Method Room Air 08/12/23 11:03 O2 Flow Rate 1 08/10/23 23:36 FiO2 1 08/11/23 00:25 Progress Note: Objective Labs Labs: Short CBC 08/12/23 Range/Units 03:42 WBC 8.5 (4.0-11.0) 10^3/uL Hgb 8.4 L (12.0-16.0) g/dL Hct 26.7 L (36.0-48.0) % Plt Count 168 (150-450) 10^3/uL BMP 08/12/23 03:42 Sodium 137 Potassium 3.8 Chloride 104 Carbon Dioxide 26.4 BUN 19.0 H Creatinine 0.46 L Glucose 198 H Calcium 8.3 L Progress Note: A&P Assessment and Plan (1) Acute infective exacerbation of chronic obstructive airway disease: Assessment and Plan: Continue IV azithromycin, IV Rocephin, IV Solu-Medrol. Appreciate pulmonary input. CTA of the chest negative, extubated. continue nebs. question of insurance coverage, I already sent prescription for Trelogy first, prednisone taper, azithromycin for 4 days and augmentin for 7 days, all requested by pulmonary. Hopeful discharge home tomorrow with close pulmonary follow up (2) Anxiety and depression: Assessment and Plan: continue home medications (3) Tobacco abuse: Assessment and Plan: plans to stop smoking, nicotine patch (4) GERD (gastroesophageal reflux disease): Assessment and Plan: continue protonix 40mg IV BID, i sent protonix 40mg daily for 2 weeks as outpatient (5) Migraine: Assessment and Plan: continue home medications Plan patient a full code Continue Lovenox for deep vein thrombosis prophylaxis hopeful discharge home tomorrow if continued improvement. Medications already sent to pharmacy and pulmonary follow up appt.
--- NOTE | 2023-08-12 15:36 | CM.NOTE ---
Dr. Kern submitted for inhaler, pharmacy had called and Trelegy inhaler will be covered at 100%. Still no call back from place of pt's employment, let pt know insurance will cover inhaler at 100%.
[2023-08-12] MEDS: AZITHROMYCIN 500 MG in 0.9 % SODIUM CHLORIDE 250 ML 250 MG IV (16:50)
[2023-08-12] MEDS: 0.9 % SODIUM CHLORIDE 250 ML 10 ML IV (16:51)
[2023-08-12] MEDS: PRAMIPEXOLE 1 MG TABLET 0.5 MG PO (21:23)
[2023-08-12] MEDS: MONTELUKAST SODIUM 10 MG TABLET PO (21:23)
[2023-08-13] MEDS: LEVALBUTEROL HCL 0.63 MG/3 ML VIAL.NEB IH ×3 (03:53→11:04)
[2023-08-13 03:54] VITALS: PULSE 76; RESP 18; O2SAT 95
[2023-08-13] MEDS: IPRATROPIUM BROMIDE 0.5 MG/2.5 ML VIAL.NEB IH ×3 (03:54→11:04)
[2023-08-13 05:09] LABS: Hematocrit 27.1 % (36.0-48.0); Hemoglobin 8.3 g/dL (12.0-16.0); Mean Corpuscular HGB Conc 30.6 g/dL (29.9-35.2); Mean Corpuscular Hemoglobin 22.9 pg (26.7-34.0); Mean Corpuscular Volume 74.7 fL (81.0-99.0); Mean Platelet Volume 10.7 fL (9.5-13.5); Platelet Count 195 10^3/uL (150-450); Red Blood Count 3.63 10^6/uL (4.20-5.40); Red Cell Distribution Width 18.4 % (11.0-15.0); White Blood Count 9.5 10^3/uL (4.0-11.0)
[2023-08-13 05:20] LABS: Anion Gap 11.9; BUN Creatinine Ratio 33.3; Calcium 8.7 mg/dL (8.5-10.1); Carbon Dioxide 24.8 mmol/L (21.0-32.0); Chloride 102 mmol/L (98-107); Estimated GFR (African America >60 (>=60); Estimated GFR (Non-African Ame >60 (>=60); Glucose 206 mg/dL (74-106); Potassium 3.7 mmol/L (3.5-5.1); Sodium 135 mmol/L (136-145)
[2023-08-13] MEDS: METHYLPREDNISOLONE SOD SUCC PF 40 MG/ML VIAL IVP ×2 (05:28→09:08)
[2023-08-13] MEDS: PANTOPRAZOLE SODIUM 40 MG VIAL IV (05:28)
[2023-08-13 05:32] VITALS: BP 151/88; PULSE 81; RESP 20; TEMP 36.9; O2SAT 95
[2023-08-13 05:41] LABS: Atypical Lymphocytes Abs Man 0.3; Lymphocytes Absolute Manual 0.47 10^3/uL (1.20-3.80); Monocytes Absolute Manual 0.38 10^3/uL (0.30-0.80); Promyelocytes Absolute Manual 0.09; Segmented Neut Absolute Manual 8.26 10^3/uL (1.4-6.5)
[2023-08-13 05:42] LABS: Nucleated Red Blood Cells 1
[2023-08-13 07:30] VITALS: O2SAT 97
[2023-08-13] MEDS: CITALOPRAM HYDROBROMIDE 20 MG TABLET 40 MG PO (08:17)
[2023-08-13] MEDS: CEFTRIAXONE 1,000 MG in 0.9 % SODIUM CHLORIDE 50 ML 100 MG IV (09:07)
[2023-08-13] MEDS: BUDESONIDE 0.5 MG/2 ML AMPULE NEB IH (11:04)
[2023-08-13 11:07] VITALS: O2SAT 95
--- NOTE | 2023-08-13 11:46 | P.DS_ITS ---
DS: Providers Provider Date of admission: 08/08/23 00:13 Primary care physician: Jose Jennings MD Consults: 08/08/23 05:47 Consult to Pulmonology Routine Consulting Provider: Keagan Caputo Reason for consultation: [facility] Has provider been notified: No 08/10/23 Physical Therapy Eval and Treat Routine Reason for consultation: Recently extubated, evaluation required d/t sedation DS: Diagnosis Discharge Diagnosis (1) Acute respiratory failure with hypoxia and hypercapnia: (2) Status asthmaticus: (3) Asthma with acute exacerbation: (4) Tobacco abuse: (5) Migraine: (6) Anxiety and depression: (7) GERD (gastroesophageal reflux disease): DS: Summary Hospital Course Hospital Course: Reason for admission: See ER note and H&P for details. 47 y/o female with a history of asthma to ER with cough and SOB. Asthma since childhood and typically aggravated by animals. Reports recently took in several kittens and out of singulair for several days. Developed chest tightness and SOB. Albuterol not helping and to ER. Treated with steroids and duoneb and improved. Discharged home. Symptoms worsened and returned to ER by EMS few hours later. Normal SpO2 on room air. Given breathing treatments and admitted. Hospital course: Patient is current smoker and initially concern of COPD but patient does not have COPD. Started solu-medrol and DuoNeb. Patient developed increased work of breathing and respiratory distress. Severe wheezing and intubated. Started rocephin and zithromax. Pulmonology consulted. Continued to have severe bronchospasms and remained on vent for several days. CTA chest negative. Weaned off vent and did well. Able to wean off oxygen and normal SpO2 on room air. Mild SOB and ambulating well. Mild cough and sputum. Discharged home in stable condition. Will continue antibiotics and steroids. Need to refrain from smoking. F/u with pulmonology in 1 week. Time Spent with Patient Time attestation: Total time spent providing and/or coordinating discharge services: Exam Constitutional Vital Signs, click to edit/add: Last Vital Signs Temp 98.5 F 08/13/23 05:32 Pulse 81 08/13/23 05:32 Resp 20 08/13/23 05:32 BP 151/88 H 08/13/23 05:32 Pulse Ox 95 08/13/23 11:07 O2 Del Method Room Air 08/13/23 11:07 O2 Flow Rate 1 08/10/23 23:36 FiO2 1 08/11/23 00:25 Documenting provider has reviewed patient's vital signs: yes Common normals: no apparent distress, oriented x3 and alert HENMT Common normals: normocephalic Eye Common normals: PERRL and EOMs intact bilaterally Respiratory Auscultation: wheezes; lung sounds not diminished Cardio Common normals: regular rate, regular rhythm, no gallops, no murmurs and no rub GI Common normals: Normal to inspection, nondistended, normoactive bowel sounds present and non-tender Extremity Common normals: no pedal edema DS: Data Data Completed and Pending Labs on day of discharge: Labs from last 24 hours 08/13/23 04:13 WBC 9.5 RBC 3.63 L Hgb 8.3 L Hct 27.1 L MCV 74.7 L MCH 22.9 L MCHC 30.6 RDW 18.4 H Plt Count 195 MPV 10.7 Seg Neuts % (Manual) 87.0 Lymphocytes % (Manual) 5.0 L Atypical Lymphs % (Man) 3.0 Monocytes % (Manual) 4.0 Eosinophils % (Manual) 0.0 L Basophils % (Manual) 0.0 L Promyelocytes % 1.0 Neutrophils # (Manual) 8.26 H Lymphocytes # (Manual) 0.47 L Abs Atypical Lymphs Man 0.3 Monocytes # (Manual) 0.38 Eosinophils # (Manual) 0.00 Basophils # (Manual) 0.00 Promyelocytes # 0.09 Nucleated RBCs 1 Sodium 135 L Potassium 3.7 Chloride 102 Carbon Dioxide 24.8 Anion Gap 11.9 BUN 16.0 Creatinine 0.48 L Est GFR ( Amer) >60 Est GFR (Non-Af Amer) >60 BUN/Creatinine Ratio 33.3 Glucose 206 H Calcium 8.7 Discharge Plan Discharge Disposition: Home, Self-Care Discharge Medications: New pantoprazole [Protonix] 40 mg tablet,delayed release (DR/EC) 40 mg PO DAILY Qty: 30 0RF azithromycin [Zithromax] 250 mg tablet 250 mg PO DAILY 4 Days Qty: 4 0RF Trelegy Ellipta 100-62.5-25 mcg blister with device 1 inh inhalation Q24H 30 Days Qty: 60 0RF prednisone 20 mg tablet 20 mg PO DAILY 11 Days Qty: 20 0RF Rx Instructions: Take 20mg PO TID x 3 days, then take 20mg PO BID x 3 days, then take 20mg PO Daily x 3 days, Then take 20mg PO every other day for 4 days amoxicillin-pot clavulanate [Augmentin] 500-125 mg tablet 1 tab PO BID 7 Days Qty: 14 0RF Continued propranolol 80 mg capsule,extended release 24 hr 80 mg PO DAILY citalopram 40 mg tablet 40 mg PO DAILY sumatriptan succinate 25 mg tablet 25 mg PO Q2H PRN (Reason: migraine headache) Rx Instructions: TAKE 1 TABLET BY MOUTH at the onset OF headache NEEDED, may repeat in 2 (TWO) HOURS one TIME pramipexole 0.5 mg tablet 0.5 mg PO .qhs montelukast 10 mg tablet 10 mg PO .qhs albuterol sulfate [ProAir HFA] 90 mcg/actuation HFA aerosol inhaler 2 inh inhalation Q4H PRN (Reason: shortness of breath or wheezing) baclofen 10 mg tablet 10 mg PO TID PRN (Reason: muscle spasm) bupropion HCl [Wellbutrin SR] 150 mg tablet sustained-release 12 hr 150 mg PO BID albuterol sulfate 2.5 mg /3 mL (0.083 %) solution for nebulization 2.5 mg inhalation Q6H PRN (Reason: shortness of breath or wheezing) Qty: 90 0RF Activity: increase activity as tolerated Diet: advance to your usual diet Patient Instructions: Prednisone (By mouth), Amoxicillin/Clavulanate Potassium (By mouth) (Augmentin, Augmentin..., Azithromycin (By mouth), Pantoprazole (By mouth), Fluticasone/Umeclidinium/Vilanterol (By breathing) (Trelegy Ellipta), Chronic Lung Disease and Infection Prevention (DC) Forms: Portal Instructions Follow Up Appointments: Dr Caputo Aug 22 @9:00 ([phone]) Call DR Jennings [phone] Tuesday for follow up next week
--- NOTE | 2023-08-15 12:17 | CM.DCFOLLOWU ---
08/15- 1st attempt, no answer
--- NOTE | 2023-08-17 15:09 | CM.DCFOLLOWU ---
Second attempt at discharge follow up call completed, no answer.
== END 2023-08-13 14:01 | disposition home or self-care (01) | DRG 208 ==
LOC: ER 14:35 → MS 14:37 → ICU 08-08 00:12 → MS 08-12 14:07
PROVIDERS: Internal Medicine; Admitting Provider Family Medicine; Emergency Provider Emergency Medicine; PCP Family Medicine; Visit Provider Family Medicine
DX: J96.02 Acute respiratory failure with hypercapnia (principal); J45.902 Unspecified asthma with status asthmaticus; J45.901 Unspecified asthma with (acute) exacerbation; E87.29 Other acidosis; J96.01 Acute respiratory failure with hypoxia; J20.6 Acute bronchitis due to rhinovirus; F17.210 Nicotine dependence, cigarettes, uncomplicated; G43.909 Migraine, unspecified, not intractable, without status migrainosus; F41.9 Anxiety disorder, unspecified; F32.A Depression, unspecified; K21.9 Gastro-esophageal reflux disease without esophagitis; Z79.899 Other long term (current) drug therapy; Z98.51 Tubal ligation status; Z91.018 Allergy to other foods; Z83.3 Family history of diabetes mellitus; Z80.9 Family history of malignant neoplasm, unspecified; Z82.49 Family history of ischemic heart disease and other diseases of the circulatory system
CPT/HCPCS: 0202U; 36415; 36600; 51702; 71045; 71275; 74022; 80048; 80307; 82728; 82805; 83540; 83550; 83735; 85025; 85027; 94002; 94003; 94640; 94667; 94668; 94761; 96365; 96366; 96367; 96368; 96372; 96375; 96376; 97110; 97161; 97530; 99285; 99407; G0378; J0456; J2920; J2930; Q3014; Q9967

== ENCOUNTER 2023-10-08 04:28 | Inpatient (IN) | payer SELFPAY ==
[2023-10-08] VITALS (71 sets, daily range): BP systolic 98–207; BP diastolic 51–140; PULSE 89–123; RESP 16–29; TEMP 37.2–37.7; O2SAT 22–100; BMI 24.3
--- NOTE | 2023-10-08 04:36 | ECG_ITS ---
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
--- NOTE | 2023-10-08 04:36 | XR_ITS ---
The [address] [address] Patient Name: MELE MENDEZ MRN: [id number] date: 1975 Sex: F Assigned Patient Location: ER Current Patient Location: ED.MAIN Accession/Order Number: [id number] Exam Date: 10/08/2023 04:38 Report Date: 10/08/2023 05:36 At the request of: CARMITA PABLO Procedure: XR chest 1V EXAM: XR chest 1V HISTORY: tube placement COMPARISON: Chest x-ray, 08/12/2023. TECHNIQUE: AP supine chest x-ray. FINDINGS: The new endotracheal tube has its tip 4.7 cm above pancho. The heart is mildly enlarged. The mediastinal contour and pulmonary vascularity are within normal limits. The lung apices are clipped from the [id number]. Imaged portions of the lungs are well expanded and clear. XR/XR chest 1V IMPRESSION: 1. Endotracheal tube tip 4.7 cm above the pancho. 2. Mild cardiomegaly without acute cardiopulmonary disease. Electronically authenticated by: ALBA ARTHUR Date: 10/08/2023 05:36
--- NOTE | 2023-10-08 04:40 | ED_ITS ---
HPI - Asthma General Chief Complaint: Shortness of Breath/Dyspnea Stated Complaint: SOB Time Seen by Provider: 10/08/23 04:36 History of Present Illness HPI Narrative: patient arrives via squad in respiratory distress and unresponsive. Past history of asthma. Reportedly the family attempted to bring her to the hospital and were unsuccessful. She was outside and never made it to the car. Squad arrived and found her unresponsive laying on the ground. she arrives with face mask in place and nebulize treatment running. Pulse ox 87% and in severe respiratory distress with use of accessory muscles and unresponsiveness. No other history is available MD complaint: Reports asthma attack Related Data Home Medications Medication Instructions Recorded Confirmed citalopram 40 mg tablet 40 mg PO DAILY 05/22/23 08/07/23 montelukast 10 mg tablet 10 mg PO .qhs 05/22/23 08/09/23 pramipexole 0.5 mg tablet 0.5 mg PO .qhs 05/22/23 08/09/23 propranolol 80 mg capsule,24 80 mg PO DAILY 05/22/23 08/07/23 hr,extended release sumatriptan succinate 25 mg tablet 25 mg PO Q2H PRN migraine headache 05/22/23 08/09/23 albuterol sulfate 90 mcg/actuation 2 inh inhalation Q4H PRN shortness 08/09/23 08/09/23 aerosol inhaler (ProAir HFA) of breath or wheezing baclofen 10 mg tablet 10 mg PO TID PRN muscle spasm 08/09/23 08/09/23 bupropion HCl 150 mg tablet,12 hr 150 mg PO BID 08/09/23 08/09/23 sustained-release (Wellbutrin SR) Previous Rx's Medication Instructions Recorded amoxicillin 500 mg-potassium 1 tab PO BID 7 days #14 tabs 08/12/23 clavulanate 125 mg tablet (Augmentin) azithromycin 250 mg tablet 250 mg PO DAILY 4 days #4 tabs 08/12/23 (Zithromax) fluticasone fur. 100 mcg-umeclid 1 inh inhalation Q24H 30 days #60 08/12/23 62.5 mcg-vilant 25 mcg ea inhalat.powder (Trelegy Ellipta) pantoprazole 40 mg tablet,delayed 40 mg PO DAILY #30 tabs 08/12/23 release (Protonix) prednisone 20 mg tablet 20 mg PO DAILY 11 days #20 tabs 08/12/23 albuterol sulfate 2.5 mg/3 mL 2.5 mg (3 mL) inhalation Q4H PRN 08/13/23 (0.083 %) solution for nebulization shortness of breath or wheezing #90 mL Allergies Allergy/AdvReac Type Severity Reaction Status Date / Time banana peppers Allergy Unknown Uncoded 05/22/23 22:36 Review of Systems ROS Status of ROS unobtainable due to mental status [facility] Medical History (Updated 10/08/23 @ 06:22 by Tobin Pablo MD) Extrinsic asthma ?J45.909 - Unspecified asthma, uncomplicated (ICD-10) GERD (gastroesophageal reflux disease) ?K21.9 - Gastro-esophageal reflux disease without esophagitis (ICD-10) Tobacco abuse ?Z72.0 - Tobacco use (ICD-10) Anxiety and depression ?F41.9 - Anxiety disorder, unspecified (ICD-10) ?F32.A - Depression, unspecified (ICD-10) Acute dyspnea ?R06.00 - Dyspnea, unspecified (ICD-10) Asthma with acute exacerbation ?J45.901 - Unspecified asthma with (acute) exacerbation (ICD-10) Migraine ?G43.909 - Migraine, unspecified, not intractable, without status migrainosus (ICD-10) Surgical History H/O tubal ligation ?Z98.51 - Tubal ligation status (ICD-10) Family History Mother Family history of cancer Family history of hypertension Grandmother Family history of cancer Family history of diabetes mellitus Grandfather Family history of diabetes mellitus Father Family history of hypertension Social History Within the past year, how often did you have a drink containing alcohol: monthly or less Within the past year, how many standard drinks containing alcohol did you have on a typical day: 1 or 2 Within the past year, how often did you have six or more drinks on one occasion: never Total score: 0 Score interpretation: A score less than 3 is consistent with normal alcohol consumption. Smoking status: Heavy tobacco smoker Non-prescribed substance use: denies use Previous occupational history: factory Known occupational exposures/hazards: Yes Highest level of school completed/degree received: some college, no degree Are you now , , , , never or living with a partner: never In a typical week, how many times do you talk on the telephone with family, friends, or neighbors: 3 or more times per week How often do you get together with friends or relatives: never How often do you attend hoahaoism or hindu services: 4 or more times per year Do you belong to any clubs or organizations such as hoahaoism groups unions, [employer] or athletic groups, or school groups: no Total score: 2 Score interpretation: A score of greater than or equal to 2 indicates the lowest level of social isolation. Little interest or pleasure in doing things: not at all Feeling down, depressed, or hopeless: several days Feel stressed/tense/nervous/anxious/difficulty sleeping: rather much Life stressors: financial matters Due to disability, difficulty making decisions: No Do you think of yourself as: straight/heterosexual Gender Identity: female Exam Constitutional Vital Signs, click to edit/add: Last Vital Signs Pulse 119 H 10/08/23 06:00 Resp 29 H 10/08/23 05:12 BP 149/119 H 10/08/23 06:00 Pulse Ox 100 10/08/23 06:00 O2 Del Method Mechanical Ventilator 10/08/23 05:55 FiO2 60 10/08/23 05:55 General appearance: in distress and diaphoretic Eye Common normals: conjunctivae normal Chest Other: diminished breath sounds throuhout Cardio Rate: tachycardic GI Common normals: Normal to inspection, nondistended, normoactive bowel sounds present Extremity Other: no obvious trauma Neuro Other: unresponsive Course Vital Signs Vital signs: Vital Signs Pulse Rate 95 H 10/08/23 04:32 Respiratory Rate 28 H 10/08/23 04:32 Pulse Oximetry 87 L 10/08/23 04:32 Pulse Rate 119 H 10/08/23 06:00 Respiratory Rate 29 H 10/08/23 05:12 Blood Pressure 149/119 H 10/08/23 06:00 Pulse Oximetry 100 10/08/23 06:00 Oxygen Delivery Method Mechanical Ventilator 10/08/23 05:55 Fraction of Inspired Oxygen 60 10/08/23 05:55 MDM - Asthma MDM Narrative Medical decision making narrative: patient arrives in severe respiratory distress unresponsive with abnormal breathing. Has the appearance of agonal breathing. Intubated shortly after arrival. ABGs returned with Ph 6.86, PC02 104. Normal troponin. Cxray clear per my interpretation. Discussed with Pulmonary who will be available as a business transformation consultant. BP elevated . Patient started on Propofol drip and BP slowly declining. Another nebulizer treatment ordered. Discussed with Dr Luo. Patient starting to wake up some and fight the tube. Propofol dose increase. patient accepted to ICU Lab Data Labs: Lab Results 10/08/23 10/08/23 Range/Units 04:35 04:50 WBC 21.0 H (4.0-11.0) 10^3/uL RBC 4.66 (4.20-5.40) 10^6/uL Hgb 11.9 L (12.0-16.0) g/dL Hct 41.3 (36.0-48.0) % MCV 88.6 (81.0-99.0) fL MCH 25.5 L (26.7-34.0) pg MCHC 28.8 L (29.9-35.2) g/dL RDW 18.6 H (11.0-15.0) % Plt Count 402 (150-450) 10^3/uL MPV 9.3 L (9.5-13.5) fL Seg Neuts % (Manual) 40.0 Band Neutrophils % 1.0 (0-5) % Lymphocytes % (Manual) 29.0 (20.5-60.0) % Atypical Lymphs % (Man) 16.0 % Monocytes % (Manual) 7.0 (1.7-12.0) % Eosinophils % (Manual) 7.0 (0.9-7.0) % Basophils % (Manual) 0.0 L (0.2-2.0) % Neutrophils # (Manual) 8.40 H (1.4-6.5) 10^3/uL Band Neutrophils # 0.2 (0.0-0.3) 10^3/uL Lymphocytes # (Manual) 6.09 H (1.20-3.80) 10^3/uL Abs Atypical Lymphs Man 3.4 Monocytes # (Manual) 1.47 H (0.30-0.80) 10^3/uL Eosinophils # (Manual) 1.47 H (0.00-0.70) 10^3/uL Basophils # (Manual) 0.00 (0.00-0.10) 10^3/uL Ovalocytes 2+ Schistocytes 1+ Puncture Site L radial ABG pH 6.868 L* (7.350-7.450) ABG pCO2 104.0 H* (35.0-45.0) mmHg ABG pO2 251.0 H (80.0-100.0) mmHg ABG HCO3 18.9 L (22.0-26.0) mmol/L ABG O2 Saturation 99.1 % ABG Base Excess -14.5 L (-2.0-2.0) mmol/L Colin Test Positive (POSITIVE) Vent Mode Ac FiO2 100 % Tidal Volume 450 Sodium 137 (136-145) mmol/L Potassium 5.4 H (3.5-5.1) mmol/L Chloride 103 (98-107) mmol/L Carbon Dioxide 18.8 L (21.0-32.0) mmol/L Anion Gap 20.6 BUN 12.0 (7.0-18.0) mg/dL Creatinine 1.21 H (0.55-1.02) mg/dL Est GFR ( Amer) 58 L (>=60) Est GFR (Non-Af Amer) 48 L (>=60) BUN/Creatinine Ratio 9.9 Glucose 332 H (74-106) mg/dL Calcium 9.2 (8.5-10.1) mg/dL Troponin I High Sens 4.6 (4.0-51.3) pg/mL Imaging Data Chest x-ray: Radiologist's impression: [place] [address] XRay Report Signed Patient: MELE MENDEZ MR#: [id number] : 1975 Acct:[id number] Age/Sex: 47 / F ADM Date: 10/08/23 Loc: ER Attending Dr: Ordering Physician: Tobin Pablo Date of Service: 10/08/23 Procedure(s): XR chest 1V Accession Number(s): [id number] cc: Tobin Pablo; Jose Jennings M.D.~ [facility] [place] [id number] Patient Name: MELE MENDEZ MRN: [id number] date: 1975 Sex: F Assigned Patient Location: ER Current Patient Location: ED.MAIN Accession/Order Number: [id number] Exam Date: 10/08/2023 04:38 Report Date: 10/08/2023 05:36 At the request of: TOBIN PABLO Procedure: XR chest 1V EXAM: XR chest 1V HISTORY: tube placement COMPARISON: Chest x-ray, 08/12/2023. TECHNIQUE: AP supine chest x-ray. FINDINGS: The new endotracheal tube has its tip 4.7 cm above pancho. The heart is mildly enlarged. The mediastinal contour and pulmonary vascularity are within normal limits. The lung apices are clipped from the [id number]. Imaged portions of the lungs are well expanded and clear. XR/XR chest 1V IMPRESSION: 1. Endotracheal tube tip 4.7 cm above the pancho. 2. Mild cardiomegaly without acute cardiopulmonary disease. Electronically authenticated by: ANGUS DUGGAN Date: 10/08/2023 05:36 Dictated By: Angus Duggan M.D. Signed By: 10/08/23 0538 Critical Care Time Critical Care Time Total Critical Care Time: 40 Discharge Plan Discharge Chief Complaint: Shortness of Breath/Dyspnea Clinical Impression: Respiratory failure with hypercapnia, Asthma with acute exacerbation Prescriptions / Home Meds: No Action propranolol 80 mg capsule,extended release 24 hr 80 mg PO DAILY citalopram 40 mg tablet 40 mg PO DAILY sumatriptan succinate 25 mg tablet 25 mg PO Q2H PRN (Reason: migraine headache) Rx Instructions: TAKE 1 TABLET BY MOUTH at the onset OF headache NEEDED, may repeat in 2 (TWO) HOURS one TIME pramipexole 0.5 mg tablet 0.5 mg PO .qhs montelukast 10 mg tablet 10 mg PO .qhs albuterol sulfate [ProAir HFA] 90 mcg/actuation HFA aerosol inhaler 2 inh inhalation Q4H PRN (Reason: shortness of breath or wheezing) baclofen 10 mg tablet 10 mg PO TID PRN (Reason: muscle spasm) bupropion HCl [Wellbutrin SR] 150 mg tablet sustained-release 12 hr 150 mg PO BID pantoprazole [Protonix] 40 mg tablet,delayed release (DR/EC) 40 mg PO DAILY Qty: 30 0RF azithromycin [Zithromax] 250 mg tablet 250 mg PO DAILY 4 Days Qty: 4 0RF Trelegy Ellipta 100-62.5-25 mcg blister with device 1 inh inhalation Q24H 30 Days Qty: 60 0RF prednisone 20 mg tablet 20 mg PO DAILY 11 Days Qty: 20 0RF Rx Instructions: Take 20mg PO TID x 3 days, then take 20mg PO BID x 3 days, then take 20mg PO Daily x 3 days, Then take 20mg PO every other day for 4 days amoxicillin-pot clavulanate [Augmentin] 500-125 mg tablet 1 tab PO BID 7 Days Qty: 14 0RF albuterol sulfate 2.5 mg /3 mL (0.083 %) solution for nebulization 2.5 mg inhalation Q4H PRN (Reason: shortness of breath or wheezing) Qty: 90 0RF Referrals: Jose Jennings MD [Primary Care Provider] - 1 week Procedures ED Procedure Instructions Procedures Procedures: patient in severe respiratory distress and unresponsive Patient intubated shortly after arrival size 3 straight blade and # 7ET tube. Successful on the first attempt. No complications
[2023-10-08 04:43] LABS: Hematocrit 41.3 % (36.0-48.0); Hemoglobin 11.9 g/dL (12.0-16.0); Mean Corpuscular HGB Conc 28.8 g/dL (29.9-35.2); Mean Corpuscular Hemoglobin 25.5 pg (26.7-34.0); Mean Corpuscular Volume 88.6 fL (81.0-99.0); Mean Platelet Volume 9.3 fL (9.5-13.5); Platelet Count 402 10^3/uL (150-450); Red Blood Count 4.66 10^6/uL (4.20-5.40); Red Cell Distribution Width 18.6 % (11.0-15.0)
--- NOTE | 2023-10-08 04:46 | ECG_ITS ---
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
[2023-10-08 04:57] LABS: Band Neutrophils Absolute 0.2 10^3/uL (0.0-0.3); Eosinophils Absolute Manual 1.47 10^3/uL (0.00-0.70); Lymphocytes Absolute Manual 6.09 10^3/uL (1.20-3.80); Monocytes Absolute Manual 1.47 10^3/uL (0.30-0.80)
[2023-10-08 04:58] LABS: Atypical Lymphocytes Abs Man 3.4; Ovalocytes 2+; Schistocytes 1+
[2023-10-08 05:00] LABS: Anion Gap 20.6; BUN Creatinine Ratio 9.9; Calcium 9.2 mg/dL (8.5-10.1); Carbon Dioxide 18.8 mmol/L (21.0-32.0); Chloride 103 mmol/L (98-107); Estimated GFR (African America 58 (>=60); Estimated GFR (Non-African Ame 48 (>=60); Glucose 332 mg/dL (74-106); Potassium 5.4 mmol/L (3.5-5.1); Sodium 137 mmol/L (136-145); Troponin I High Sensitivity 4.6 pg/mL (4.0-51.3)
[2023-10-08] MEDS: PROPOFOL 1,000 MG/100 ML VIAL 1.633 MG IV (05:00)
[2023-10-08 05:01] LABS: Allen Test POSITIVE (POSITIVE); Base Excess ABG -14.5 mmol/L (-2.0-2.0); Fractionated Inspired Oxygen 100 %; HCO3 ABG 18.9 mmol/L (22.0-26.0); O2 Mode VENTILATOR; Oxygen Saturation ABG 99.1 %
[2023-10-08 05:02] LABS: Puncture Site L RADIAL; Rate 16; Tidal Volume 450; Vent Mode AC
[2023-10-08 05:04] LABS: pH ABG 6.868 (7.350-7.450)
[2023-10-08] MEDS: ALBUTEROL SULFATE 2.5 MG/3 ML VIAL NEB IH ×2 (05:10→06:33)
[2023-10-08] MEDS: 0.9 % SODIUM CHLORIDE 1,000 ML 150 ML IV (05:40)
--- NOTE | 2023-10-08 06:11 | PC.NURSE ---
patient brought in by EMS from home for respiratory distress. patient was on her way into ER when she collapsed outside on the way to the car. this was witnessed by her son who helped ease her on to the ground. patient arrived, continues to be only respond to painful stimuli. patient arrived upright on 15L nonrebreather, agonal breathing. physician, respiratory, nursing supervisor bridges and buildings at bedside on arrrival. patient set up for intubation. ems states patient has hx of asthma. patient arrived with iv access x2. duoneb treatment running, and Solumedrol given enroute. labs drawn off iv start, patient was intubated at 0432 with positive color change and 02 at 87% HR96. ET tube tied at 22 at teeth. radiology was called for chest xray. a patient saturation 94% at 0433. vent setting 100% fio2 450 16rr peep 5. muñoz placed at 0445 ekg done at 0446. propofol drip ordered
--- NOTE | 2023-10-08 06:15 | RESP.RT ---
fio2 decreased to 80%
--- NOTE | 2023-10-08 06:17 | RESP.RT ---
fio2 decreased to 60%
--- NOTE | 2023-10-08 06:18 | RESP.RT ---
fio2 decreased to 50%
[2023-10-08 08:09] LABS: Adenovirus NOT DETECTED (NOT DETECTE); Bordetella parapertussis NOT DETECTED (NOT DETECTE); Coronavirus 229E NOT DETECTED (NOT DETECTE); Coronavirus HKU1 NOT DETECTED (NOT DETECTE); Coronavirus NL63 NOT DETECTED (NOT DETECTE); Coronavirus OC43 NOT DETECTED (NOT DETECTE); Human Metapneumovirus NOT DETECTED (NOT DETECTE); Human Rhinovirus/Enterovirus NOT DETECTED (NOT DETECTE); Influenza A NOT DETECTED (NOT DETECTE); Influenza B NOT DETECTED (NOT DETECTE); Mycoplasma pneumoniae NOT DETECTED (NOT DETECTE); Parainfluenza Virus 1 NOT DETECTED (NOT DETECTE); Parainfluenza Virus 2 NOT DETECTED (NOT DETECTE); Parainfluenza Virus 3 NOT DETECTED (NOT DETECTE); Parainfluenza Virus 4 NOT DETECTED (NOT DETECTE); Respiratory Syncytial Virus NOT DETECTED (NOT DETECTE); SARS-CoV-2 NOT DETECTED (NOT DETECTE)
[2023-10-08 08:20] LABS: Lactate/Lactic Acid 11.9 mmol/L (0.4-2.0)
[2023-10-08 08:23] LABS: SARS-CoV-2 Ag NEGATIVE (NEGATIVE)
[2023-10-08 10:01] LABS: Bilirubin Urine NEGATIVE (NEGATIVE); Blood Urine SMALL (NEGATIVE); Color Urine LT. YELLOW (YELLOW); Glucose Urine UA NEGATIVE (NEGATIVE); Ketones Urine TRACE mg/dL (NEGATIVE); Leukocyte Esterase Urine NEGATIVE (NEGATIVE); Nitrite Urine NEGATIVE (NEGATIVE); Protein Urine NEGATIVE (NEG/TRACE); Urobilinogen Urine 0.2 EU/dL (0.2-1.0)
[2023-10-08 10:08] LABS: Bacteria Urine NONE SEEN #/HPF (NONE SEEN); Cast Seen? NONE SEEN #/LPF (NONE SEEN); Clarity Urine SLIGHTLY CLOUDY (CLEAR); Crystals Seen? None Seen #/HPF (None Seen); Mucus Urine NONE SEEN (NONE SEEN); Squamous Epithelial Cell Urine FEW #/LPF (NONE/RARE); WBC Urine NONE SEEN #/HPF (NONE SEEN)
[2023-10-08 10:18] LABS: ABG PCO2 42.7 mmHg (35.0-45.0); Allen Test POSITIVE (POSITIVE); Base Excess ABG -2.1 mmol/L (-2.0-2.0); Fractionated Inspired Oxygen 30 %; HCO3 ABG 23.5 mmol/L (22.0-26.0); O2 Mode VENT; Oxygen Saturation ABG 98.1 %; PO2 ABG 94.2 mmHg (80.0-100.0); Puncture Site LR
[2023-10-08 10:19] LABS: Rate 20; Tidal Volume 450; Vent Mode AC-VC
[2023-10-08 10:21] LABS: Amphetamine Screen Urine NEGATIVE (NEGATIVE); Barbiturates Screen Urine NEGATIVE (NEGATIVE); Benzodiazepines Screen Urine NEGATIVE (NEGATIVE); Buprenorphine Screen Urine NEGATIVE (NEGATIVE); Cannabinoid Screen Urine NEGATIVE (NEGATIVE); Cocaine Screen Urine NEGATIVE (NEGATIVE); Methadone Screen Urine NEGATIVE (NEGATIVE); Methamphetamines Screen Urine NEGATIVE (NEGATIVE); Opiate Screen Urine NEGATIVE (NEGATIVE); Oxycodone Screen Urine NEGATIVE (NEGATIVE); Phencyclidine Screen Urine NEGATIVE (NEGATIVE); Tricyclic Antidepressant Urine NEGATIVE (NEGATIVE)
[2023-10-08] MEDS: METHYLPREDNISOLONE SOD SUCC PF 125 MG/2 ML VIAL IVP ×3 (10:28→21:13)
[2023-10-08] MEDS: LACTATED RINGER'S SOLUTION 1,000 ML 125 ML IV ×2 (10:31→16:25)
[2023-10-08] MEDS: PANTOPRAZOLE SODIUM 40 MG VIAL IV (10:31)
[2023-10-08 10:32] LABS: Glucometer 135 mg/dL (74-106)
[2023-10-08] MEDS: AMPICILLIN SODIUM/SULBACTAM NA 3 GM in 0.9 % SODIUM CHLORIDE 100 ML IV ×2 (10:40→16:25)
--- NOTE | 2023-10-08 10:44 | P.HP_ITS ---
H&P: HPI History of Present Illness Chief complaint: SHORTNESS OF BREATH Narrative: Patient unable to give a great history but does answer yes and no questions, she has had increasing cough, she has had asthma for longstanding time, patient has had a dry cough. At home she was just having increasing shortness of breath and tried to get into the car but collapsed, squad was called, in ER found to be significantly obtunded and is significant respiratory distress with O2 sats less than 88% with a nonrebreather on, patient was intubated. Review of Systems ROS Status of ROS 10 or more systems reviewed and unremark able except as noted in history and below [facility] Medical History (Updated 10/08/23 @ 06:22 by Tobin Martínez MD) Extrinsic asthma ?J45.909 - Unspecified asthma, uncomplicated (ICD-10) GERD (gastroesophageal reflux disease) ?K21.9 - Gastro-esophageal reflux disease without esophagitis (ICD-10) Tobacco abuse ?Z72.0 - Tobacco use (ICD-10) Anxiety and depression ?F41.9 - Anxiety disorder, unspecified (ICD-10) ?F32.A - Depression, unspecified (ICD-10) Acute dyspnea ?R06.00 - Dyspnea, unspecified (ICD-10) Asthma with acute exacerbation ?J45.901 - Unspecified asthma with (acute) exacerbation (ICD-10) Migraine ?G43.909 - Migraine, unspecified, not intractable, without status migrainosus (ICD-10) Surgical History H/O tubal ligation ?Z98.51 - Tubal ligation status (ICD-10) Family History Mother Family history of cancer Family history of hypertension Grandmother Family history of cancer Family history of diabetes mellitus Grandfather Family history of diabetes mellitus Father Family history of hypertension Social History Within the past year, how often did you have a drink containing alcohol: monthly or less Within the past year, how many standard drinks containing alcohol did you have on a typical day: 1 or 2 Within the past year, how often did you have six or more drinks on one occasion: never Total score: 0 Score interpretation: A score less than 3 is consistent with normal alcohol consumption. Smoking status: Heavy tobacco smoker Non-prescribed substance use: denies use Previous occupational history: factory Known occupational exposures/hazards: Yes Highest level of school completed/degree received: some college, no degree Are you now , , , , never or living with a partner: never In a typical week, how many times do you talk on the telephone with family, friends, or neighbors: 3 or more times per week How often do you get together with friends or relatives: never How often do you attend baptist or zoroastrianism services: 4 or more times per year Do you belong to any clubs or organizations such as baptist groups unions, [employer] or athletic groups, or school groups: no Total score: 2 Score interpretation: A score of greater than or equal to 2 indicates the lowest level of social isolation. Little interest or pleasure in doing things: not at all Feeling down, depressed, or hopeless: several days Feel stressed/tense/nervous/anxious/difficulty sleeping: rather much Life stressors: financial matters Due to disability, difficulty making decisions: No Do you think of yourself as: straight/heterosexual Gender Identity: female Meds Home Medications and Allergies Home Medications Medication Instructions Recorded Confirmed Type citalopram 40 mg tablet 40 mg PO DAILY 05/22/23 10/08/23 History montelukast 10 mg tablet 10 mg PO BEDTIME 05/22/23 10/08/23 History pramipexole 0.5 mg tablet 0.5 mg PO BEDTIME 05/22/23 10/08/23 History propranolol 80 mg capsule,24 80 mg PO DAILY 05/22/23 10/08/23 History hr,extended release sumatriptan succinate 25 mg tablet 25 mg PO Q2H PRN migraine headache 05/22/23 10/08/23 History albuterol sulfate 90 mcg/actuation 2 inh inhalation Q4H PRN shortness 08/09/23 10/08/23 History aerosol inhaler (ProAir HFA) of breath or wheezing baclofen 10 mg tablet 10 mg PO TID PRN muscle spasm 08/09/23 10/08/23 History bupropion HCl 150 mg tablet,12 hr 150 mg PO BID 08/09/23 10/08/23 History sustained-release (Wellbutrin SR) fluticasone fur. 100 mcg-umeclid 1 inh inhalation Q24H 30 days #60 08/12/23 10/08/23 Rx 62.5 mcg-vilant 25 mcg ea inhalat.powder (Trelegy Ellipta) pantoprazole 40 mg tablet,delayed 40 mg PO DAILY #30 tabs 08/12/23 10/08/23 Rx release (Protonix) albuterol sulfate 2.5 mg/3 mL 2.5 mg inhalation Q6H PRN 10/08/23 10/08/23 History (0.083 %) solution for nebulization shortness of breath or wheezing Allergies Allergy/AdvReac Type Severity Reaction Status Date / Time banana peppers Allergy Unknown Uncoded 05/22/23 22:36 Exam Constitutional Vital Signs, click to edit/add: Last Vital Signs Temp 99.0 F 10/08/23 08:21 Pulse 99 H 10/08/23 10:10 Resp 21 10/08/23 10:10 BP 117/89 10/08/23 08:21 Pulse Ox 100 10/08/23 10:10 O2 Del Method Mechanical Ventilator 10/08/23 08:21 O2 Flow Rate 15 10/08/23 04:30 FiO2 30 10/08/23 10:10 Documenting provider has reviewed patient's vital signs: yes Common normals: no apparent distress Exam limitations: no altered mental status HENMT Common normals: normocephalic Chest Common normals: inspection of chest normal Respiratory Common normals: normal respiratory effort (Patient on ventilator) Auscultation: wheezes Cardio Common normals: regular rhythm; irregular rate Rate: tachycardic Results Labs Labs: Short CBC 10/08/23 Range/Units 04:35 WBC 21.0 H (4.0-11.0) 10^3/uL Hgb 11.9 L (12.0-16.0) g/dL Hct 41.3 (36.0-48.0) % Plt Count 402 (150-450) 10^3/uL BMP 10/08/23 04:35 Sodium 137 Potassium 5.4 H Chloride 103 Carbon Dioxide 18.8 L BUN 12.0 Creatinine 1.21 H Glucose 332 H Calcium 9.2 Urine 10/08/23 Range/Units 09:38 Urine Color Lt. yellow (YELLOW) Urine Clarity Slightly cloudy A (CLEAR) Urine pH 6.0 (5.0-9.0) Ur Specific [place] 1.020 (1.005-1.025) Urine Protein Negative (NEG/TRACE) mg/dL Urine Glucose (UA) Negative (NEGATIVE) mg/dL ABG ABG results: 10/08/23 10/08/23 04:50 10:02 ABG pH 6.868 L* 7.350 ABG pCO2 104.0 H* 42.7 ABG pO2 251.0 H 94.2 ABG HCO3 18.9 L 23.5 ABG O2 Saturation 99.1 98.1 ABG Base Excess -14.5 L -2.1 L Assessment and Plan Assessment and Plan (1) Asthma with acute exacerbation: (2) Respiratory failure with hypercapnia: Plan Sinus tachycardia, respiratory distress, uncontrolled hypertension, respiratory acidosis, metabolic acidosis, acute renal failure, leukocytosis, hyperglycemia, lactic acidosis secondary to acute hypoxic respiratory failure with hypercapnia secondary to acute exacerbation of asthma and possible pneumonia-aspiration?. This is led to severe sepsis with multisystem organ dysfunction (brain, heme, kidney). Continue with IV hydration, give 1 extra fluid bolus to try to improve tachycardia, ABG improved after initial vent management. Plan per pulmonology. Continue with steroids and IV antibiotics try to obtain sputum culture or blood culture. Severe sepsis with multisystem organ dysfunction-check on CT scan abdomen and pelvis to rule out other etiology for infection. Significant hyperglycemia, check ketones-denies any history of diabetes on her home medication list-insulin sliding scale and Accu-Cheks Iron deficiency anemia this is actually improved for her but that is likely secondary to hemoconcentration from dehydration-monitor daily Acute kidney injury-IV fluids, monitor daily Hyperkalemia likely secondary to the acidosis-monitor daily, no treatment at this time. Longstanding asthma-see above Depression-restart medications once off ventilator GERD-continue with pantoprazole give IV secondary to stress-induced ulcer risk factor Migraines-hold off on migraine suppressive treatments until can take oral medications ICU patient-inpatient status secondary to all of the above.
[2023-10-08] MEDS: LEVALBUTEROL HCL 0.63 MG/3 ML VIAL.NEB IH ×4 (10:49→22:36)
[2023-10-08] MEDS: IPRATROPIUM BROMIDE 0.5 MG/2.5 ML VIAL.NEB IH ×4 (10:50→22:39)
[2023-10-08 11:23] LABS: Lactate/Lactic Acid 0.6 mmol/L (0.4-2.0)
[2023-10-08] MEDS: LEVOFLOXACIN IN DEXTROSE 5 % 750 MG/150 ML IV.SOLN 100 MG IV (11:25)
[2023-10-08] MEDS: ENOXAPARIN SODIUM 40 MG/0.4 ML SYRINGE SUBQ (11:25)
[2023-10-08] MEDS: LACTATED RINGER'S SOLUTION 1,000 ML 1000 ML IV (11:33)
--- NOTE | 2023-10-08 12:37 | PM.PLCN ---
History of Present Illness History of Present Illness Consult date: 10/08/23 Requesting physician: Tobin Martínez Reason for consult: asthma and hypoxemia Chief complaint: SHORTNESS OF BREATH Narrative: 47yo female presents to [facility] ER with respiratory distress. She is currently sedated and intubated - history was obtained from nursing and the chart. She was previously admitted to [facility] 08/07/2023 with status asthmaticus, provoked by rhinovirus, causing acute hypoxic and hypercapnic respiratory failure - she was intubated during this admission. I followed her progress through the hospitalization. She improved and was discharged home. I saw her for F/U outpatient on 08/22/2023. She was started on Trelegy and it was working well for her. I ordered PFT and lab testing. She was fired from her job and could not afford her inhalers - I was never informed of this by the patient. The hospital was unable to reach her to schedule testing. The only communication I received since that visit was a letter from the [employer] stating the patient requested a signed physician waiver not to turn off her gas. As she was not on any pulmonary medical biller coder dependent on natural gas, I declined to sign the paper. Last evening, the patient was having difficulty breathing. She only had albuterol to use at home which did not relieve her dyspnea. On the way out to her vehicle, she apparently collapsed outside. 911 was called. EMS administered bronchodilators and SoluMedrol without benefit. She was evaluated by Dr. Martínez in the ER. Her breathing appeared agonal and he made the decision to emergently intubate the patient with a 7.0 ETT. ABG immediately post intubation noted pH 6.868 & pCO2 104. WBC was 21k. CXR was unremarkable for any infiltrates. Lactate was 11.9. Repeat ABG revealed rapid correction of respiratory acidosis with pH 7.35 & pCO2 42.7. She is arousable. Repeat lactate is 0.6. Inspiratory breath sounds are coarse, but not much movement on exhalation. Review of Systems ROS Status of ROS unobtainable due to endotracheal tube and unobtainable due to mental status (sedated) [facility] Medical History (Updated 10/08/23 @ 13:04 by Keagan Caputo DO) Extrinsic asthma ?J45.909 - Unspecified asthma, uncomplicated (ICD-10) GERD (gastroesophageal reflux disease) ?K21.9 - Gastro-esophageal reflux disease without esophagitis (ICD-10) Tobacco abuse ?Z72.0 - Tobacco use (ICD-10) Anxiety and depression ?F41.9 - Anxiety disorder, unspecified (ICD-10) ?F32.A - Depression, unspecified (ICD-10) Acute dyspnea ?R06.00 - Dyspnea, unspecified (ICD-10) Asthma with acute exacerbation ?J45.901 - Unspecified asthma with (acute) exacerbation (ICD-10) Migraine ?G43.909 - Migraine, unspecified, not intractable, without status migrainosus (ICD-10) Surgical History H/O tubal ligation ?Z98.51 - Tubal ligation status (ICD-10) Family History Mother Family history of cancer Family history of hypertension Grandmother Family history of cancer Family history of diabetes mellitus Grandfather Family history of diabetes mellitus Father Family history of hypertension Social History Within the past year, how often did you have a drink containing alcohol: monthly or less Within the past year, how many standard drinks containing alcohol did you have on a typical day: 1 or 2 Within the past year, how often did you have six or more drinks on one occasion: never Total score: 0 Score interpretation: A score less than 3 is consistent with normal alcohol consumption. Smoking status: Heavy tobacco smoker Non-prescribed substance use: denies use Previous occupational history: factory Known occupational exposures/hazards: Yes Highest level of school completed/degree received: some college, no degree Are you now , , , , never or living with a partner: never In a typical week, how many times do you talk on the telephone with family, friends, or neighbors: 3 or more times per week How often do you get together with friends or relatives: never How often do you attend alevism or pentecostalism services: 4 or more times per year Do you belong to any clubs or organizations such as alevism groups unions, fraternal or athletic groups, or school groups: no Total score: 2 Score interpretation: A score of greater than or equal to 2 indicates the lowest level of social isolation. Little interest or pleasure in doing things: not at all Feeling down, depressed, or hopeless: several days Feel stressed/tense/nervous/anxious/difficulty sleeping: rather much Life stressors: financial matters Due to disability, difficulty making decisions: No Do you think of yourself as: straight/heterosexual Gender Identity: female Meds Home Medications and Allergies Home Medications Medication Instructions Recorded Confirmed Type citalopram 40 mg tablet 40 mg PO DAILY 05/22/23 10/08/23 History montelukast 10 mg tablet 10 mg PO BEDTIME 05/22/23 10/08/23 History pramipexole 0.5 mg tablet 0.5 mg PO BEDTIME 05/22/23 10/08/23 History propranolol 80 mg capsule,24 80 mg PO DAILY 05/22/23 10/08/23 History hr,extended release sumatriptan succinate 25 mg tablet 25 mg PO Q2H PRN migraine headache 05/22/23 10/08/23 History albuterol sulfate 90 mcg/actuation 2 inh inhalation Q4H PRN shortness 08/09/23 10/08/23 History aerosol inhaler (ProAir HFA) of breath or wheezing baclofen 10 mg tablet 10 mg PO TID PRN muscle spasm 08/09/23 10/08/23 History bupropion HCl 150 mg tablet,12 hr 150 mg PO BID 08/09/23 10/08/23 History sustained-release (Wellbutrin SR) fluticasone fur. 100 mcg-umeclid 1 inh inhalation Q24H 30 days #60 08/12/23 10/08/23 Rx 62.5 mcg-vilant 25 mcg ea inhalat.powder (Trelegy Ellipta) pantoprazole 40 mg tablet,delayed 40 mg PO DAILY #30 tabs 08/12/23 10/08/23 Rx release (Protonix) albuterol sulfate 2.5 mg/3 mL 2.5 mg inhalation Q6H PRN 10/08/23 10/08/23 History (0.083 %) solution for nebulization shortness of breath or wheezing Allergies Allergy/AdvReac Type Severity Reaction Status Date / Time banana peppers Allergy Unknown Uncoded 05/22/23 22:36 Exam Constitutional Vital Signs, click to edit/add: Last Vital Signs Temp 99.7 F 10/08/23 12:00 Pulse 94 H 10/08/23 12:00 Resp 20 10/08/23 12:00 BP 116/96 H 10/08/23 12:00 Pulse Ox 100 10/08/23 12:21 O2 Del Method Mechanical Ventilator 10/08/23 12:00 O2 Flow Rate 15 10/08/23 04:30 FiO2 30 10/08/23 12:00 Documenting provider has reviewed patient's vital signs: yes General appearance: appears older than stated age and patient mechanically ventilated [facility] Other: 7.0 ETT Eye Common normals: PERRL and no scleral icterus General eye: normal light reflex Neck & C-Spine Common normals: no meningeal signs General: no tracheal deviation Cervical spine: cervical ROM normal Chest Common normals: inspection of chest normal Chest: symmetrical chest wall rise Respiratory Other: Intubated, on ventilator. Coarse inspiratory breath sounds anteriorly. Very little air movement auscultated on exhalation, slightly more anteriorly than posteriorly. No expiratory wheezes. Cardio Rate: tachycardic (110's during my examination) Rhythm: regular rhythm Peripheral pulses: posterior tibial pulses present bilateral 1+ GI Common normals: Normal to inspection, nondistended, normoactive bowel sounds present Bladder/kidney exam: catheter in place Catheter type (Female): urethral Back & Pelvis Thoracic spine/upper back: normal to inspection Extremity Other: Both needs appeared cyanotic, with the remainder of the skin normal colored. Given this odd presentation, I took a wet paper towel and washed her knee - a bluish ink was present on the paper towel. I did not attempt to scrub it off. Neuro Sensorium/orientation: somnolent (sedated) Meningeal signs: Brudzinski's sign Brudzinski's Sign: Negative; no nuccal rigidity Psych Appearance: unkempt (dirt/ink on body?) Other: Sedated Results Laboratory Findings ABG, PT/INR, D-dimer: ABG ABG pH 7.350 (7.350-7.450) 10/08/23 10:02 ABG pCO2 42.7 mmHg (35.0-45.0) 10/08/23 10:02 ABG pO2 94.2 mmHg (80.0-100.0) 10/08/23 10:02 ABG O2 Saturation 98.1 % 10/08/23 10:02 Abnormal lab findings: Abnormal Labs 10/08/23 10/08/23 10/08/23 04:35 04:50 09:38 WBC 21.0 H Hgb 11.9 L MCH 25.5 L MCHC 28.8 L RDW 18.6 H MPV 9.3 L Basophils % (Manual) 0.0 L Neutrophils # (Manual) 8.40 H Lymphocytes # (Manual) 6.09 H Monocytes # (Manual) 1.47 H Eosinophils # (Manual) 1.47 H ABG pH 6.868 L* ABG pCO2 104.0 H* ABG pO2 251.0 H ABG HCO3 18.9 L ABG Base Excess -14.5 L Potassium 5.4 H Carbon Dioxide 18.8 L Creatinine 1.21 H Est GFR ( Amer) 58 L Est GFR (Non-Af Amer) 48 L Glucose 332 H Lactate 11.9 H* Urine Clarity Slightly cloudy A Urine Ketones Trace A Urine Occult Blood Small A Urine RBC 5-10 A Ur Squamous Epith Cells Few A POC Glucose 10/08/23 10/08/23 10:02 10:31 WBC Hgb MCH MCHC RDW MPV Basophils % (Manual) Neutrophils # (Manual) Lymphocytes # (Manual) Monocytes # (Manual) Eosinophils # (Manual) ABG pH ABG pCO2 ABG pO2 ABG HCO3 ABG Base Excess -2.1 L Potassium Carbon Dioxide Creatinine Est GFR ( Amer) Est GFR (Non-Af Amer) Glucose Lactate Urine Clarity Urine Ketones Urine Occult Blood Urine RBC Ur Squamous Epith Cells POC Glucose 135 H Diagnostic Findings Additional studies: Reviewed multiple labs and imaging results. Reviewed past admission records and outpatient office note. Assessment and Plan Assessment and Plan (1) Severe persistent asthma with status asthmaticus: Assessment and Plan: 1. Status asthmaticus in severe persistent asthma. Inciting factor is unclear, but it was aggravated by non-compliance of medications secondary to financial difficulty. Clinical presentation is consistent with severe sepsis, but actual identified source is unclear. WBC 21k. Initial lactate was 11.9. CXR was unremarkable. She remains febrile. Respirator panel negative. Urine & blood cultures pending. Regarding asthma, though blood gases have rapidly corrected on ventilator, the lack of wheezes on exhalation is concerning for continued bronchospasm to the degree there is not enough air movement to create the turbulence that produces the wheezing. Ventilator liberation is premature at this time in my opinion. Continue with bronchodilators, IV steroids. Add nebulized budesonide. Case management needs to work with patient after extubation to look into some sort of health insurance & prescription coverage as she needs a maintenance inhaler outpatient. 2. Acute hypercapnic respiratory failure. Secondary to #1. Improved on ventilator. 3. Acute hypoxic respiratory failure. Secondary to #1 & #4. Improved on ventilator. 4. Severe sepsis. Source unknown at this time. See #1 for details. Ordering chest and abdominal/pelvis CT to investigate any identifiable cause. 5. Lactic acidosis. Rapid improvement from 11.9 to 0.6 within hours. The majority of this would be explained as type A lactic acidosis (associated with hypoxia) with minor contribution by type B (severe sepsis is one cause). 6. Acute renal failure. Secondary to #4 +/- other. Baseline creatinine ~0.4 - 0.7, was 1.21 today. Continue IV fluids. Monitor for resolution. 7. Hyperkalemia. Mild elevation at 5.4. Secondary to #2, mild contribution if that from #6. Will correct with correction of acidosis. Monitor K+. 8. Steroid-induced hyperglycemia. Patient has had elevated blood sugars during admissions. Will check A1C. 9. Nicotine/cigarette abuse in remission. Last cigarette was 08/06/2023. Plan Patient is critically ill requiring intensive care unit management. Patient remains on ventilator. Though gases improved on ventilator, this could be deceptive as there is little air movement on exhalation which could indicate ongoing severe bronchospasm. As she was just intubated <8 hours prior to this, will continue with ventilator support for now and reassess tomorrow. 50 minutes critical care time.
[2023-10-08] MEDS: PROPOFOL 1,000 MG/100 ML VIAL 14.952 MG IV ×2 (12:38→16:17)
--- NOTE | 2023-10-08 12:40 | PC.NURSE ---
patient has not been in restraints since being admitted to the ICU.
--- NOTE | 2023-10-08 12:45 | XR_ITS ---
The [address] [address] Patient Name: MELE MENDEZ MRN: [id number] date: 1975 Sex: F Assigned Patient Location: ICU Current Patient Location: ICU Accession/Order Number: [id number] Exam Date: 10/08/2023 14:05 Report Date: 10/08/2023 14:48 At the request of: CANDIE HEREDIA Procedure: XR chest 1V PROCEDURE: XR chest 1V DATE: 10/08/2023 1:05 PM FORENSIC DNA ANALYST COMPARISONS: The present exam is done at 1328 on 10/08/2023 is compared to previous exam done at 0434 same day CLINICAL INDICATION: 47 years Female Respiratory distress - Intubated patient FINDINGS: The cardiomediastinal silhouette and pulmonary vasculature are within normal limits. The lungs are clear. There is no evidence of pleural effusion or pneumothorax. Endotracheal tube is in stable position when compared to previous exam. The tip is approximately 3.5 cm cephalad to the pancho. In the interval, an enteric tube has been placed. The tip overlies the proximal stomach based on this frontal projection. XR/XR chest 1V IMPRESSION: Stable chest. In the interval an enteric tube has been placed with the tip overlying the proximal stomach in this projection. Electronically authenticated by: PABLO DODGE Date: 10/08/2023 14:48
[2023-10-08] MEDS: MIDAZOLAM HCL 2 MG/2 ML VIAL 1 MG IV ×3 (14:00→18:47)
[2023-10-08 14:16] LABS: Glucometer 153 mg/dL (74-106)
--- NOTE | 2023-10-08 14:17 | PC.NURSE ---
patient sedated at this time. No restraints required since patient in ICU
--- NOTE | 2023-10-08 15:45 | CT_ITS ---
[address] [address] Patient Name: MELE MENDEZ MRN: [id number] date: 1975 Sex: F Assigned Patient Location: ICU Current Patient Location: ICU Accession/Order Number: [id number] Exam Date: 10/08/2023 15:40 Report Date: 10/08/2023 17:05 At the request of: CANDIE HEREDIA Procedure: CT chest wo con EXAMINATION: CT chest wo con, CT abdomen pelvis wo con, 10/08/2023 12:40 PM PST HISTORY: Respiratory failure, leukocytosis, fever COMPARISON: CT angiogram of the chest 08/09/2023. Technique: CT chest abdomen and pelvis without contrast. Multiplanar reformats obtained. The current study utilizes one or more of the following dose-reduction techniques: automated exposure control, iterative reconstruction, and/or manual adjustment of tube current and voltage for size. FINDINGS: CHEST: Significantly motion degraded exam. LUNGS: No significant consolidation. AIRWAYS: Endotracheal tube terminates 1 cm above the pancho. Posterior bowing of the trachea. PLEURA: No significant finding. MEDIASTINUM AND FABIOLA: No significant finding. HEART AND PERICARDIUM: No significant finding. VESSELS: No significant finding. CHEST WALL: No significant finding. NECK BASE: No significant finding. BONES: No significant finding. ABDOMEN/PELVIS: Motion degraded exam. Liver: No significant finding. Gallbladder: No significant finding. Spleen: No significant finding. Pancreas: No significant finding. Adrenal glands: No significant finding. Kidneys, ureters and bladder: Nonobstructive left renal calculi. Andrew catheter within the bladder. Air within the bladder. Bowel: Normal appendix. No evidence of bowel obstruction. Enteric tube terminates in the stomach. Side-port is at the GE junction. Colonic stool burden. Peritoneum/retroperitoneum: No significant finding. Lymph nodes: No significant finding. Vessels: Minimal scattered atherosclerotic calcification. Body wall: No significant finding. Reproductive: Tampon noted. Fibroid uterus. Bones: No significant finding. CT/CT chest wo con IMPRESSION: Motion degraded exam. Endotracheal tube terminates 1 cm above the pancho. Recommend retraction. Enteric tube with side-port at the GE junction. Recommend advancement. No acute findings of the chest abdomen and pelvis. Nonobstructive left renal calculi. Electronically authenticated by: PHILIPP VALENZUELA Date: 10/08/2023 17:05
--- NOTE | 2023-10-08 15:45 | CT_ITS ---
[address] [address] Patient Name: MELE MENDEZ MRN: [id number] date: 1975 Sex: F Assigned Patient Location: ICU Current Patient Location: ICU Accession/Order Number: [id number] Exam Date: 10/08/2023 15:40 Report Date: 10/08/2023 17:05 At the request of: CANDIE HEREDIA Procedure: CT abdomen pelvis wo con EXAMINATION: CT chest wo con, CT abdomen pelvis wo con, 10/08/2023 12:40 PM PST HISTORY: Respiratory failure, leukocytosis, fever COMPARISON: CT angiogram of the chest 08/09/2023. Technique: CT chest abdomen and pelvis without contrast. Multiplanar reformats obtained. The current study utilizes one or more of the following dose-reduction techniques: automated exposure control, iterative reconstruction, and/or manual adjustment of tube current and voltage for size. FINDINGS: CHEST: Significantly motion degraded exam. LUNGS: No significant consolidation. AIRWAYS: Endotracheal tube terminates 1 cm above the pancho. Posterior bowing of the trachea. PLEURA: No significant finding. MEDIASTINUM AND FABIOLA: No significant finding. HEART AND PERICARDIUM: No significant finding. VESSELS: No significant finding. CHEST WALL: No significant finding. NECK BASE: No significant finding. BONES: No significant finding. ABDOMEN/PELVIS: Motion degraded exam. Liver: No significant finding. Gallbladder: No significant finding. Spleen: No significant finding. Pancreas: No significant finding. Adrenal glands: No significant finding. Kidneys, ureters and bladder: Nonobstructive left renal calculi. Andrew catheter within the bladder. Air within the bladder. Bowel: Normal appendix. No evidence of bowel obstruction. Enteric tube terminates in the stomach. Side-port is at the GE junction. Colonic stool burden. Peritoneum/retroperitoneum: No significant finding. Lymph nodes: No significant finding. Vessels: Minimal scattered atherosclerotic calcification. Body wall: No significant finding. Reproductive: Tampon noted. Fibroid uterus. Bones: No significant finding. CT/CT abdomen pelvis wo con IMPRESSION: Motion degraded exam. Endotracheal tube terminates 1 cm above the pancho. Recommend retraction. Enteric tube with side-port at the GE junction. Recommend advancement. No acute findings of the chest abdomen and pelvis. Nonobstructive left renal calculi. Electronically authenticated by: PHILIPP VALENZUELA Date: 10/08/2023 17:05
--- NOTE | 2023-10-08 16:47 | PC.NURSE ---
patient remains out of restraints at this time. No restraints have been placed since admission to ICU
--- NOTE | 2023-10-08 18:38 | PC.NURSE ---
According to CT scan patient had tampon in place. With assistance from Concepción, janak gage, and Vinh JORDAN. Tampon was retrieved. Tampon had purulent drainage present and was malodorous along with the patients groin region. Purulent drainage also noted from patients vagina. Dr. Luo notified of findings and order was obtained to culture the tampon. Cheri care also performed at this time.
[2023-10-08 20:04] LABS: Glucometer 127 mg/dL (74-106)
[2023-10-08] MEDS: PROPOFOL 1,000 MG/100 ML VIAL 16.821 MG IV (21:37)
[2023-10-08] MEDS: CLINDAMYCIN PHOSPHATE/D5W 900 MG/50 ML PIGGYBACK 100 MG IV (22:30)
[2023-10-08] MEDS: BUDESONIDE 0.5 MG/2 ML AMPULE NEB IH (22:36)
[2023-10-08] MEDS: IMIPENEM/CILASTATIN SODIUM 250 MG in 0.9 % SODIUM CHLORIDE 100 ML 200 MG IV (23:40)
[2023-10-09] VITALS (61 sets, daily range): BP systolic 101–149; BP diastolic 68–96; PULSE 77–119; RESP 20–28; TEMP 36.7–37.3; O2SAT 74–100
[2023-10-09] MEDS: VANCOMYCIN HCL 1,500 MG in 0.9 % SODIUM CHLORIDE 500 ML 250 MG IV (00:09)
[2023-10-09] MEDS: LACTATED RINGER'S SOLUTION 1,000 ML 125 ML IV ×3 (00:19→15:20)
[2023-10-09 03:12] LABS: Glucometer 129 mg/dL (74-106)
[2023-10-09] MEDS: METHYLPREDNISOLONE SOD SUCC PF 125 MG/2 ML VIAL IVP ×4 (03:14→21:23)
[2023-10-09] MEDS: IMIPENEM/CILASTATIN SODIUM 250 MG in 0.9 % SODIUM CHLORIDE 100 ML 200 MG IV (03:14)
[2023-10-09] MEDS: LEVALBUTEROL HCL 0.63 MG/3 ML VIAL.NEB IH ×6 (03:49→23:23)
[2023-10-09] MEDS: IPRATROPIUM BROMIDE 0.5 MG/2.5 ML VIAL.NEB IH ×6 (03:49→23:23)
[2023-10-09 04:55] LABS: Basophils Percent Auto 0.1 % (0.2-2.0); Hemoglobin 10.3 g/dL (12.0-16.0); Immature Granulocytes Pct Auto 0.8 % (0.0-0.5); Lymphocytes Absolute Auto 0.8 10^3/uL (1.2-3.8); Lymphocytes Percent Auto 6.3 % (20.5-60.0); Mean Corpuscular HGB Conc 30.3 g/dL (29.9-35.2); Mean Corpuscular Hemoglobin 25.1 pg (26.7-34.0); Mean Corpuscular Volume 82.9 fL (81.0-99.0); Mean Platelet Volume 8.8 fL (9.5-13.5); Monocytes Absolute Auto 0.4 10^3/uL (0.3-0.8); Monocytes Percent Auto 3.1 % (1.7-12.0); Neutrophils Absolute Auto 11.5 10^3/uL (1.4-6.5); Neutrophils Percent Auto 89.7 % (43.0-75.0); Platelet Count 288 10^3/uL (150-450); Red Cell Distribution Width 18.9 % (11.0-15.0); White Blood Count 12.8 10^3/uL (4.0-11.0)
[2023-10-09 05:16] LABS: Estimated Average Glucose 120 mg/dL; Glycohemoglobin A1C 5.8 % (4.5-6.2)
[2023-10-09 05:31] LABS: Alanine Aminotransferase 79 U/L (14-59); Albumin Globulin Ratio 0.8; Albumin Level 2.9 g/dL (3.4-5.0); Alkaline Phosphatase 75 U/L (46-116); Anion Gap 12.6; Aspartate Amino Transferase 44 U/L (15-37); BUN Creatinine Ratio 22.7; Bilirubin Total 0.2 mg/dL (0.2-1.0); Calcium 8.8 mg/dL (8.5-10.1); Carbon Dioxide 24.2 mmol/L (21.0-32.0); Chloride 108 mmol/L (98-107); Estimated GFR (African America >60 (>=60); Estimated GFR (Non-African Ame >60 (>=60); Globulin 3.5 g/dL; Glucose 140 mg/dL (74-106); Potassium 3.8 mmol/L (3.5-5.1); Sodium 141 mmol/L (136-145); Total Protein 6.4 g/dL (6.4-8.2)
[2023-10-09] MEDS: PROPOFOL 1,000 MG/100 ML VIAL 45 MG IV (06:00)
--- NOTE | 2023-10-09 06:00 | XR_ITS ---
The [address] [address] Patient Name: MELE MENDEZ MRN: [id number] date: 1975 Sex: F Assigned Patient Location: ICU Current Patient Location: ICU Accession/Order Number: [id number] Exam Date: 10/09/2023 06:00 Report Date: 10/09/2023 07:21 At the request of: MEGHANA HOLT Procedure: XR chest 1V PROCEDURE: XR chest 1V DATE: 10/09/2023 5:00 AM INFANTRY UNIT LEADER COMPARISONS: CT chest and chest x-ray from 10/08/2023 CLINICAL INDICATION: 47 years Female intubated FINDINGS: The cardiomediastinal silhouette and pulmonary vasculature are within normal limits. The lungs are clear. There is no evidence of pleural effusion or pneumothorax. Enteric tube is in stable position. Caudal and overlies the proximal stomach Endotracheal tube is in stable position. The tip lies approximately 3.5 cm cephalad to the pancho. XR/XR chest 1V IMPRESSION: Chest radiograph is within normal limits. Enteric tube and endotracheal tube in stable position, in good position in this frontal projection. Electronically authenticated by: PABLO DODGE Date: 10/09/2023 07:21
[2023-10-09] MEDS: CLINDAMYCIN PHOSPHATE/D5W 900 MG/50 ML PIGGYBACK 100 MG IV ×3 (06:14→21:23)
[2023-10-09 06:55] LABS: Bilirubin Direct 0.1 mg/dL (0.0-0.2)
[2023-10-09] MEDS: 0.9 % SODIUM CHLORIDE 1,000 ML 1000 ML IV ×2 (07:42→17:45)
[2023-10-09 08:18] LABS: ABG PCO2 36.5 mmHg (35.0-45.0); Allen Test POSITIVE (POSITIVE); Base Excess ABG -2.4 mmol/L (-2.0-2.0); HCO3 ABG 22.5 mmol/L (22.0-26.0); Oxygen Saturation ABG 97.5 %; PO2 ABG 83.3 mmHg (80.0-100.0); pH ABG 7.397 (7.350-7.450)
[2023-10-09 08:19] LABS: Fractionated Inspired Oxygen 25 %; Rate 20; Tidal Volume 450; Vent Mode AC
[2023-10-09 08:22] LABS: Glucometer 147 mg/dL (74-106)
[2023-10-09] MEDS: PROPOFOL 1,000 MG/100 ML VIAL 14.952 MG IV ×3 (08:40→21:52)
[2023-10-09] MEDS: PANTOPRAZOLE SODIUM 40 MG VIAL IV (08:41)
[2023-10-09] MEDS: ENOXAPARIN SODIUM 40 MG/0.4 ML SYRINGE SUBQ (08:41)
--- NOTE | 2023-10-09 09:02 | P.PN_ITS ---
Progress Note: Subjective Subjective Interval history: Patient lightly sedated on ventilator, Exam Constitutional Vital Signs, click to edit/add: Last Vital Signs Temp 99.2 F 10/09/23 04:00 Pulse 104 H 10/09/23 08:00 Resp 20 10/09/23 08:00 BP 117/76 10/09/23 08:00 Pulse Ox 100 10/09/23 08:00 O2 Del Method Mechanical Ventilator 10/09/23 08:00 O2 Flow Rate 15 10/08/23 04:30 FiO2 25 10/09/23 08:00 Documenting provider has reviewed patient's vital signs: yes Common normals: no apparent distress (Sedated on ventilator) Chest Common normals: inspection of chest normal Respiratory Auscultation: wheezes (Somewhat better air movement than yesterday resulting wheezes more audible) Cardio Common normals: regular rhythm; irregular rate Rate: tachycardic GI Common normals: Normal to inspection, nondistended, normoactive bowel sounds present Progress Note: Objective Labs Labs: Short CBC 10/09/23 Range/Units 04:36 WBC 12.8 H (4.0-11.0) 10^3/uL Hgb 10.3 L (12.0-16.0) g/dL Hct 34.0 L (36.0-48.0) % Plt Count 288 (150-450) 10^3/uL BMP 10/09/23 04:36 Sodium 141 Potassium 3.8 Chloride 108 H Carbon Dioxide 24.2 BUN 15.0 Creatinine 0.66 Glucose 140 H Calcium 8.8 Liver Function 10/09/23 10/09/23 Range/Units 04:36 06:46 Total Bilirubin 0.2 (0.2-1.0) mg/dL Direct Bilirubin 0.1 (0.0-0.2) mg/dL AST 44 H (15-37) U/L ALT 79 H (14-59) U/L Alkaline Phosphatase 75 (46-116) U/L Albumin 2.9 L (3.4-5.0) g/dL Urine 10/08/23 Range/Units 09:38 Urine Color Lt. yellow (YELLOW) Urine Clarity Slightly cloudy A (CLEAR) Urine pH 6.0 (5.0-9.0) Ur Specific [place] 1.020 (1.005-1.025) Urine Protein Negative (NEG/TRACE) mg/dL Urine Glucose (UA) Negative (NEGATIVE) mg/dL Progress Note: A&P Assessment and Plan (1) Severe persistent asthma with status asthmaticus: Assessment and Plan: Sinus tachycardia, respiratory distress, uncontrolled hypertension, respiratory acidosis, metabolic acidosis, acute renal failure, leukocytosis with left shift, hyperglycemia, lactic acidosis secondary to acute hypoxic respiratory failure with hypercapnia secondary to acute exacerbation of asthma and possible pneumonia-aspiration?. This is led to severe sepsis with multisystem organ dysfunction (brain, heme, kidney, Liver). Heart rate up a bit this morning, will give fluid bolus, source of infection possible vaginal, antibiotics adjusted for possibly toxic shock syndrome. Acidosis is resolved, white blood cell count improving, liver function test elevated today, try to obtain sample from ER to test liver profile from that sample. Severe sepsis with multisystem organ dysfunction-CT scan without acute finding but did demonstrate tampon. That was removed yesterday evening and cultured. Hopefully for sensitivities later tomorrow Significant hyperglycemia, check ketones-borderline ketones in urine but doubt DKA. Acidosis resolved quickly Iron deficiency anemia this is actually improved for her but that is likely secondary to hemoconcentration from dehydration-monitor daily Acute kidney injury-IV fluids, improving Hyperkalemia likely secondary to the acidosis-resolved Longstanding asthma-see above Depression-restart medications once off ventilator GERD-continue with pantoprazole give IV secondary to stress-induced ulcer risk factor Migraines-hold off on migraine suppressive treatments until can take oral medications Mild protein calorie malnutrition-start nutrition tomorrow if not extubated ICU patient-inpatient status secondary to all of the above. Urinary Catheter Management Urinary Catheter Management Urethral: Cath placed during this visit: no
[2023-10-09] MEDS: IMIPENEM/CILASTATIN SODIUM 500 MG in 0.9 % SODIUM CHLORIDE 100 ML 200 MG IV ×3 (09:31→21:52)
[2023-10-09 10:37] LABS: Glucometer 139 mg/dL (74-106)
[2023-10-09 10:50] LABS: Alanine Aminotransferase 61 U/L (14-59); Albumin Level 3.3 g/dL (3.4-5.0); Alkaline Phosphatase 98 U/L (46-116); Aspartate Amino Transferase 96 U/L (15-37); Bilirubin Direct <0.1 mg/dL (0.0-0.2); Bilirubin Total 0.2 mg/dL (0.2-1.0); Globulin 3.3 g/dL; Total Protein 6.6 g/dL (6.4-8.2)
[2023-10-09] MEDS: VANCOMYCIN HCL 750 MG in 0.9 % SODIUM CHLORIDE 250 ML 250 MG IV ×2 (11:14→19:38)
[2023-10-09] MEDS: ALBUMIN HUMAN 25 GM/100 ML PREMIX IV ×2 (11:59→12:28)
[2023-10-09] MEDS: ENSURE HP 237 ML LIQUID FEED TUBE ×2 (11:59→19:31)
[2023-10-09] MEDS: BUDESONIDE 0.5 MG/2 ML AMPULE NEB IH ×2 (12:03→23:23)
[2023-10-09] MEDS: WATER FOR IRRIGATION, STERILE 1,000 ML IRRIG.SOLN 250 ML FEED TUBE ×2 (13:20→21:22)
[2023-10-09 14:27] LABS: Glucometer 169 mg/dL (74-106)
[2023-10-09 16:59] LABS: Glucometer 185 mg/dL (74-106)
[2023-10-09] MEDS: INSULIN ASPART 300 UNIT/3 ML PEN SUBQ ×2 (17:05→21:33)
[2023-10-09] MEDS: LACTATED RINGER'S SOLUTION 1,000 ML 150 ML IV (17:46)
[2023-10-09 19:17] LABS: Glucometer 153 mg/dL (74-106)
[2023-10-10] VITALS (22 sets, daily range): BP systolic 140–151; BP diastolic 89–99; PULSE 72–104; RESP 14–24; TEMP 36.7–37.3; O2SAT 96–100
[2023-10-10] MEDS: LACTATED RINGER'S SOLUTION 1,000 ML 150 ML IV ×2 (00:36→07:51)
[2023-10-10] MEDS: METHYLPREDNISOLONE SOD SUCC PF 125 MG/2 ML VIAL IVP ×2 (03:07→09:36)
[2023-10-10] MEDS: IMIPENEM/CILASTATIN SODIUM 500 MG in 0.9 % SODIUM CHLORIDE 100 ML 200 MG IV ×4 (03:07→22:13)
[2023-10-10] MEDS: ENSURE HP 237 ML LIQUID FEED TUBE (03:10)
[2023-10-10] MEDS: VANCOMYCIN HCL 750 MG in 0.9 % SODIUM CHLORIDE 250 ML 250 MG IV ×3 (03:19→20:40)
[2023-10-10] MEDS: PROPOFOL 1,000 MG/100 ML VIAL 14.952 MG IV (03:32)
[2023-10-10] MEDS: LEVALBUTEROL HCL 0.63 MG/3 ML VIAL.NEB IH ×6 (03:50→22:38)
[2023-10-10] MEDS: IPRATROPIUM BROMIDE 0.5 MG/2.5 ML VIAL.NEB IH ×6 (03:51→22:38)
[2023-10-10 04:40] LABS: Basophils Percent Auto 0.1 % (0.2-2.0); Hemoglobin 9.6 g/dL (12.0-16.0); Immature Granulocytes Abs Auto 0.15 10^3/uL (0.00-0.03); Immature Granulocytes Pct Auto 1.5 % (0.0-0.5); Lymphocytes Absolute Auto 0.7 10^3/uL (1.2-3.8); Lymphocytes Percent Auto 6.7 % (20.5-60.0); Mean Corpuscular Hemoglobin 24.9 pg (26.7-34.0); Mean Corpuscular Volume 83.1 fL (81.0-99.0); Mean Platelet Volume 9.2 fL (9.5-13.5); Monocytes Absolute Auto 0.6 10^3/uL (0.3-0.8); Monocytes Percent Auto 5.8 % (1.7-12.0); Neutrophils Absolute Auto 8.9 10^3/uL (1.4-6.5); Neutrophils Percent Auto 85.9 % (43.0-75.0); Platelet Count 279 10^3/uL (150-450); Red Blood Count 3.85 10^6/uL (4.20-5.40); Red Cell Distribution Width 19.5 % (11.0-15.0); White Blood Count 10.3 10^3/uL (4.0-11.0)
[2023-10-10 04:57] LABS: Alanine Aminotransferase 37 U/L (14-59); Albumin Globulin Ratio 1.2; Alkaline Phosphatase 47 U/L (46-116); Anion Gap 11.7; Aspartate Amino Transferase 17 U/L (15-37); BUN Creatinine Ratio 39.7; Bilirubin Total 0.3 mg/dL (0.2-1.0); Calcium 8.7 mg/dL (8.5-10.1); Chloride 108 mmol/L (98-107); Estimated GFR (African America >60 (>=60); Estimated GFR (Non-African Ame >60 (>=60); Globulin 2.5 g/dL; Glucose 164 mg/dL (74-106); Potassium 3.7 mmol/L (3.5-5.1); Sodium 140 mmol/L (136-145); Total Protein 5.5 g/dL (6.4-8.2)
[2023-10-10] MEDS: CLINDAMYCIN PHOSPHATE/D5W 900 MG/50 ML PIGGYBACK 100 MG IV ×3 (05:05→21:04)
[2023-10-10] MEDS: WATER FOR IRRIGATION, STERILE 1,000 ML IRRIG.SOLN 250 ML FEED TUBE (05:06)
[2023-10-10 05:21] LABS: pH ABG 7.417 (7.350-7.450)
[2023-10-10 05:22] LABS: ABG PCO2 35.8 mmHg (35.0-45.0); Allen Test POSITIVE (POSITIVE); Base Excess ABG -1.5 mmol/L (-2.0-2.0); Fractionated Inspired Oxygen 25 %; O2 Mode VENTILATOR; Oxygen Saturation ABG 98.5 %; PO2 ABG 96.7 mmHg (80.0-100.0); Puncture Site R RADIAL; Rate 20; Tidal Volume 450; Vent Mode AC
--- NOTE | 2023-10-10 06:00 | XR_ITS ---
The [address] [address] Patient Name: MELE MENDEZ MRN: [id number] date: 1975 Sex: F Assigned Patient Location: ICU Current Patient Location: ICU Accession/Order Number: [id number] Exam Date: 10/10/2023 06:25 Report Date: 10/10/2023 07:45 At the request of: MEGHANA HOLT Procedure: XR chest 1V EXAM: XR chest 1V HISTORY: intubated COMPARISON: Chest study dated 10/09/2023 TECHNIQUE: AP view of the chest was obtained with portable technique at 0554 hours. FINDINGS: Heart and mediastinal contours are unremarkable in appearance. No acute infiltrate or consolidations are seen. Faint round density overlying the right mid lung field likely representing nipple shadow. Endotracheal tube position stable and unremarkable. Oral/nasogastric tube tip beyond the image at least at the level of the proximal stomach, sidehole suggested at the gastroesophageal junction level. No obvious pneumothorax. Bony structures appear grossly intact. XR/XR chest 1V IMPRESSION: No acute process seen in the chest. Electronically authenticated by: KATIANA CHAVEZ Date: 10/10/2023 07:45
--- NOTE | 2023-10-10 06:57 | PM.PLPN ---
Progress Note: A&P Assessment and Plan (1) Severe persistent asthma with status asthmaticus: Assessment and Plan: 1. Status asthmaticus in severe persistent asthma. Working diagnosis is that it was provoked by retained tampon which was sent for culture. Pulmonary status improving - beginning sedation vacation and weaning protocol today. 2. Acute hypercapnic respiratory failure. Secondary to #1. Resolved. 3. Acute hypoxic respiratory failure. Secondary to #1 & #4. Improved/resolved. 4. Severe sepsis. Secondary to retained tampon? Clinically improved. 5. Lactic acidosis. Associated with above. 6. Acute renal failure. Secondary to #4 +/- other. Resolved. 7. Hyperkalemia. Secondary to #2 with mild contribution, if that, from #6. Resolved. 8. Steroid-induced hyperglycemia. A1C 5.8. 9. Nicotine/cigarette abuse in remission. Last cigarette was 08/06/2023. Continue smoking cessation. Plan Patient was successfully liberated from the ventilator this AM. Patient was reassessed at lunchtime. She was sitting up eating lunch. She said she could not afford the Trelegy (>$640). I replied that she didn't call the office to let me know so that I could work on an alternative. She stated she was so focused on getting a job that she did not think about anything else. She does not recall what set her off other than not feeling well. I brought up the retained tampon as a possible source. She said she changed it the morning before she came to the hospital, but then said she thinks she did, but then she could not clearly remember. She said she was so busy that she does not recall exactly the last time she exchanged it. She said It may as well have been earlier [in the week] . A pelvic ultrasound was ordered. I suggested to the patient that gynecology be consulted to be safe that there are no other remnants left in the vagina. The patient voiced she did not feel it is necessary, but gynecology has been consulted. Subjective Subjective Interval history: Discussed with RN, RT. Patient continued to have limited air movement yesterday, so decision was made to have her remain on ventilator overnight. This morning, there is more air movement with exhalation without wheezes. ABGs have corrected. CT chest did not show any noticeable infiltrates - CT abdomen/pelvis noted a retained tampon which was removed - since removal of said tampon, the patient's clinical status has improved. Exam Constitutional Vital Signs, click to edit/add: Last Vital Signs Temp 98.2 F 10/10/23 04:00 Pulse 73 10/10/23 05:28 Resp 19 10/10/23 04:00 BP 148/97 H 10/10/23 04:00 Pulse Ox 100 10/10/23 05:28 O2 Del Method Mechanical Ventilator 10/10/23 04:00 O2 Flow Rate 15 10/08/23 04:30 FiO2 25 10/10/23 05:28 Documenting provider has reviewed patient's vital signs: yes Common normals: no apparent distress General appearance: patient mechanically ventilated HENMT Other: 7.0 ETT, OGT Chest Common normals: inspection of chest normal Chest: symmetrical chest wall rise Respiratory Other: Diminished breath sounds bilaterally, more movement on exhalation, no wheezes or crackles. Cardio Rate: regular rate Rhythm: regular rhythm Peripheral pulses: posterior tibial pulses present bilateral 2+ and dorsalis pedis pulses present bilateral 2+ GI Common normals: Normal to inspection, nondistended, normoactive bowel sounds present Extremity Common normals: no clubbing, cyanosis or edema Neuro Other: Moves extremities spontaneously. Withdraws to stimuli. Psych Other: Sedated Urinary Catheter Management Urinary Catheter Management Urethral: Cath placed during this visit: no
[2023-10-10 07:31] LABS: ABG PCO2 34.6 mmHg (35.0-45.0); Allen Test POSITIVE (POSITIVE); Base Excess ABG -1.3 mmol/L (-2.0-2.0); O2 Mode VENT; Oxygen Saturation ABG 98.5 %; PO2 ABG 95.6 mmHg (80.0-100.0); pH ABG 7.431 (7.350-7.450)
[2023-10-10 07:32] LABS: Fractionated Inspired Oxygen 25 %; Puncture Site RR; Rate 20; Tidal Volume 450; Vent Mode AC
--- NOTE | 2023-10-10 08:11 | P.PN_ITS ---
Progress Note: Subjective Subjective Interval history: Patient still on ventilator when I saw her this morning Exam Constitutional Vital Signs, click to edit/add: Last Vital Signs Temp 98.2 F 10/10/23 04:00 Pulse 73 10/10/23 07:32 Resp 20 10/10/23 07:32 BP 148/97 H 10/10/23 04:00 Pulse Ox 100 10/10/23 07:32 O2 Del Method Mechanical Ventilator 10/10/23 04:00 O2 Flow Rate 15 10/08/23 04:30 FiO2 25 10/10/23 05:28 Documenting provider has reviewed patient's vital signs: yes Common normals: no apparent distress (Sedated on ventilator) Chest Common normals: inspection of chest normal Respiratory Auscultation: wheezes (Better air exchange and wheezes have much improved) Cardio Common normals: regular rhythm; irregular rate Rate: tachycardic GI Common normals: Normal to inspection, nondistended, normoactive bowel sounds present Progress Note: Objective Labs Labs: Short CBC 10/10/23 Range/Units 04:20 WBC 10.3 (4.0-11.0) 10^3/uL Hgb 9.6 L (12.0-16.0) g/dL Hct 32.0 L (36.0-48.0) % Plt Count 279 (150-450) 10^3/uL BMP 10/10/23 04:20 Sodium 140 Potassium 3.7 Chloride 108 H Carbon Dioxide 24.0 BUN 23.0 H Creatinine 0.58 Glucose 164 H Calcium 8.7 Liver Function 10/08/23 10/10/23 Range/Units 04:35 04:20 Total Bilirubin 0.2 0.3 (0.2-1.0) mg/dL Direct Bilirubin <0.1 (0.0-0.2) mg/dL AST 96 H 17 (15-37) U/L ALT 61 H 37 (14-59) U/L Alkaline Phosphatase 98 47 (46-116) U/L Albumin 3.3 L 3.0 L (3.4-5.0) g/dL Progress Note: A&P Assessment and Plan (1) Severe persistent asthma with status asthmaticus: Assessment and Plan: Sinus tachycardia, respiratory distress, uncontrolled hypertension, respiratory acidosis, metabolic acidosis, acute renal failure, leukocytosis with left shift, hyperglycemia, lactic acidosis secondary to acute hypoxic respiratory failure with hypercapnia secondary to acute exacerbation of asthma and possible pneumonia-aspiration?. This is led to severe sepsis with multisystem organ dysfunction (brain, heme, kidney, Liver). Heart rate better today, about to come off of ventilator. Severe sepsis with multisystem organ ppvewewjxkl-rhqtpulc-eyubn blood cell count returned normal, consult to [employer] secondary to enlarged uterus Significant hyperglycemia, -continue to monitor Elevated liver function - test likely secondary to the severe sepsis as outlined above-improving Iron deficiency anemia -this is likely her baseline Acute kidney injury -improved Hyperkalemia likely secondary to the acidosis-resolved Longstanding asthma-see above Depression-restart medications once off ventilator GERD-continue with pantoprazole give IV secondary to stress-induced ulcer risk factor Migraines-hold off on migraine suppressive treatments until can take oral medications Mild protein calorie malnutrition-start nutrition tomorrow if not extubated ICU patient-inpatient status secondary to all of the above.-Will restart home medications today once off of ventilator Urinary Catheter Management Urinary Catheter Management Urethral: Cath placed during this visit: no
--- NOTE | 2023-10-10 08:40 | US_ITS ---
The [address] [address] Patient Name: MELE MENDEZ MRN: [id number] date: 1975 Sex: F Assigned Patient Location: ICU Current Patient Location: ICU Accession/Order Number: [id number] Exam Date: 10/10/2023 10:30 Report Date: 10/10/2023 11:01 At the request of: MEGHANA HOLT Procedure: US pelvis EXAMINATION: US pelvis HISTORY: Retained tampon COMPARISON: No relevant comparison available. FINDINGS: Uterus is enlarged in size lobular in contour and heterogeneous in echotexture measuring 12.2 x 8.1 x 6.6 cm with a volume of 340 cc. Multiple complex masses the 2 largest measuring 5.0 and 2.5 cm in size. The endometrium measures 5.3 mm. The ovaries are not visualized Small to moderate amount of free fluid is identified within the pelvis US/US pelvis IMPRESSION: Enlarged heterogeneous uterus with multiple masses consistent with fibroids Free pelvic fluid, more than physiologic in amount Electronically authenticated by: KATINA HICKEY Date: 10/10/2023 11:01
--- NOTE | 2023-10-10 08:43 | CM.NOTE ---
Rounds made with Dr. Luo. Remains on vent. No discharge today.
[2023-10-10 08:45] LABS: Glucometer 145 mg/dL (74-106)
--- NOTE | 2023-10-10 08:46 | PC.NURSE ---
patient extubated and OG tube removed today at 810. This RN and Yarelis Sosa RT present for extubation per Dr. Caputo. patient immediately placed on 4L NC. Patient has been titrated to 2L NC. Patient was awake. CPAP trial passed. Patient tolerated procedure well. Patient awake and alert, yet drowsy. Patient denies any further needs at this time. Dr. Luo and Dr. Caputo both updated post intubation.
[2023-10-10] MEDS: ENOXAPARIN SODIUM 40 MG/0.4 ML SYRINGE SUBQ (09:35)
[2023-10-10] MEDS: PANTOPRAZOLE SODIUM 40 MG VIAL IV (09:36)
[2023-10-10] MEDS: BUDESONIDE 0.5 MG/2 ML AMPULE NEB IH ×2 (11:45→22:38)
[2023-10-10] MEDS: CITALOPRAM HYDROBROMIDE 20 MG TABLET 40 MG PO (12:28)
[2023-10-10] MEDS: BUPROPION HCL 150 MG SR TABLET 12H PO (12:29)
[2023-10-10] MEDS: LACTATED RINGER'S SOLUTION 1,000 ML 100 ML IV (12:29)
--- NOTE | 2023-10-10 14:01 | CM.NOTE ---
Pt does not have medical insurance, pt given good Rx card, [employer] $4 list, and coupon from 211 website that provides assistance. Discussed with pt about [employer] Website and different resources on there to assist her through these times. Pt does have a new job that she is starting and will be able to obtain insurance after 90 days. Finance will also come up to speak with pt.
[2023-10-10 14:19] LABS: Glucometer 200 mg/dL (74-106)
--- NOTE | 2023-10-10 15:29 | CM.NOTE ---
After speaking with textile machinery sales representative from [facility], unable to get any other assistance for medications besides discount coupons online. Coupons printed off and were given to patient.
--- NOTE | 2023-10-10 15:45 | P.GYNCN_ITS ---
[employer] OPERATOR - CN: HPI Data of Consult Patient: new to practice Consult date: 10/10/23 Requesting Physician: Janusz Bach MD Primary Care Provider: Jose Jennings MD Consult Narrative Reason for consult: vaginal bleeding and pelvic pain cc:: CC: Janusz Bach MD Review of Systems ROS Status of ROS 10 or more systems reviewed and unremark able except as noted in history and below Respiratory Reports: shortness of breath PFSH PFSH Medical History (Updated 10/10/23 @ 15:57 by Felix Roman DO) Extrinsic asthma ?J45.909 - Unspecified asthma, uncomplicated (ICD-10) GERD (gastroesophageal reflux disease) ?K21.9 - Gastro-esophageal reflux disease without esophagitis (ICD-10) Tobacco abuse ?Z72.0 - Tobacco use (ICD-10) Anxiety and depression ?F41.9 - Anxiety disorder, unspecified (ICD-10) ?F32.A - Depression, unspecified (ICD-10) Acute dyspnea ?R06.00 - Dyspnea, unspecified (ICD-10) Asthma with acute exacerbation ?J45.901 - Unspecified asthma with (acute) exacerbation (ICD-10) Migraine ?G43.909 - Migraine, unspecified, not intractable, without status migrainosus (ICD-10) Surgical History H/O tubal ligation ?Z98.51 - Tubal ligation status (ICD-10) Family History Mother Family history of cancer Family history of hypertension Grandmother Family history of cancer Family history of diabetes mellitus Grandfather Family history of diabetes mellitus Father Family history of hypertension Social History Within the past year, how often did you have a drink containing alcohol: monthly or less Within the past year, how many standard drinks containing alcohol did you have on a typical day: 1 or 2 Within the past year, how often did you have six or more drinks on one occasion: never Total score: 0 Score interpretation: A score less than 3 is consistent with normal alcohol consumption. Smoking status: Heavy tobacco smoker Non-prescribed substance use: denies use Previous occupational history: factory Known occupational exposures/hazards: Yes Highest level of school completed/degree received: some college, no degree Are you now , , , , never or living with a partner: never In a typical week, how many times do you talk on the telephone with family, friends, or neighbors: 3 or more times per week How often do you get together with friends or relatives: never How often do you attend restorationism or hindu services: 4 or more times per year Do you belong to any clubs or organizations such as restorationism groups unions, [employer] or athletic groups, or school groups: no Total score: 2 Score interpretation: A score of greater than or equal to 2 indicates the lowest level of social isolation. Little interest or pleasure in doing things: not at all Feeling down, depressed, or hopeless: several days Feel stressed/tense/nervous/anxious/difficulty sleeping: rather much Life stressors: financial matters Due to disability, difficulty making decisions: No Do you think of yourself as: straight/heterosexual Gender Identity: female Meds Home Medications and Allergies Home Medications Medication Instructions Recorded Confirmed Type citalopram 40 mg tablet 40 mg PO DAILY 05/22/23 10/08/23 History montelukast 10 mg tablet 10 mg PO BEDTIME 05/22/23 10/08/23 History pramipexole 0.5 mg tablet 0.5 mg PO BEDTIME 05/22/23 10/08/23 History propranolol 80 mg capsule,24 80 mg PO DAILY 05/22/23 10/08/23 History hr,extended release sumatriptan succinate 25 mg tablet 25 mg PO Q2H PRN migraine headache 05/22/23 10/08/23 History albuterol sulfate 90 mcg/actuation 2 inh inhalation Q4H PRN shortness 08/09/23 10/08/23 History aerosol inhaler (ProAir HFA) of breath or wheezing baclofen 10 mg tablet 10 mg PO TID PRN muscle spasm 08/09/23 10/08/23 History bupropion HCl 150 mg tablet,12 hr 150 mg PO BID 08/09/23 10/08/23 History sustained-release (Wellbutrin SR) fluticasone fur. 100 mcg-umeclid 1 inh inhalation Q24H 30 days #60 08/12/23 10/08/23 Rx 62.5 mcg-vilant 25 mcg ea inhalat.powder (Trelegy Ellipta) pantoprazole 40 mg tablet,delayed 40 mg PO DAILY #30 tabs 08/12/23 10/08/23 Rx release (Protonix) albuterol sulfate 2.5 mg/3 mL 2.5 mg inhalation Q6H PRN 10/08/23 10/08/23 History (0.083 %) solution for nebulization shortness of breath or wheezing Allergies Allergy/AdvReac Type Severity Reaction Status Date / Time banana peppers Allergy Unknown Uncoded 05/22/23 22:36 Exam Constitutional Vital Signs, click to edit/add: Last Vital Signs Temp 98.2 F 10/10/23 12:00 Pulse 92 H 10/10/23 14:35 Resp 20 10/10/23 14:35 BP 141/91 10/10/23 12:00 Pulse Ox 97 10/10/23 14:35 O2 Del Method Room Air 10/10/23 12:00 O2 Flow Rate 4 10/10/23 08:00 FiO2 25 10/10/23 07:55 Documenting provider has reviewed patient's vital signs: yes Common normals: no apparent distress Respiratory Other: deferred to hospitalist Cardio Common normals: regular rate and regular rhythm GI Common normals: Normal to inspection, nondistended, normoactive bowel sounds present Back & Pelvis Common normals: no CVA tenderness Pelvis: no pain with anterior-posterior compression and no pain with lateral compression Extremity Common normals: no calf tenderness Results Labs Labs: Short CBC 10/10/23 Range/Units 04:20 WBC 10.3 (4.0-11.0) 10^3/uL Hgb 9.6 L (12.0-16.0) g/dL Hct 32.0 L (36.0-48.0) % Plt Count 279 (150-450) 10^3/uL BMP 10/10/23 04:20 Sodium 140 Potassium 3.7 Chloride 108 H Carbon Dioxide 24.0 BUN 23.0 H Creatinine 0.58 Glucose 164 H Calcium 8.7 Liver Function 10/10/23 Range/Units 04:20 Total Bilirubin 0.3 (0.2-1.0) mg/dL AST 17 (15-37) U/L ALT 37 (14-59) U/L Alkaline Phosphatase 47 (46-116) U/L Albumin 3.0 L (3.4-5.0) g/dL ABG ABG results: 10/08/23 10/08/23 10/09/23 04:50 10:02 08:15 ABG pH 6.868 L* 7.350 7.397 ABG pCO2 104.0 H* 42.7 36.5 ABG pO2 251.0 H 94.2 83.3 ABG HCO3 18.9 L 23.5 22.5 ABG O2 Saturation 99.1 98.1 97.5 ABG Base Excess -14.5 L -2.1 L -2.4 L 10/10/23 10/10/23 05:10 07:20 ABG pH 7.417 7.431 ABG pCO2 35.8 34.6 L ABG pO2 96.7 95.6 ABG HCO3 23.0 23.0 ABG O2 Saturation 98.5 98.5 ABG Base Excess -1.5 -1.3 Assessment and Plan Assessment and Plan (1) Severe persistent asthma with status asthmaticus: (2) Pelvic pain: (3) Retained foreign body: (4) Anemia: (5) Enlarged uterus: (6) Uterine fibroid: Plan discussed plan with dr bach, ultrasound and labs reviewed, pt does not have surgical abdomen, pt to follow up 2wks after discharge from hospital for mgmt of aub, uterine fibroids, enlarged uterus, possible surgical mgmt, dr bach to manage abx, awaiting culture results,
[2023-10-10 16:35] LABS: Glucometer 267 mg/dL (74-106)
[2023-10-10] MEDS: INSULIN ASPART 300 UNIT/3 ML PEN SUBQ ×2 (16:39→21:05)
[2023-10-10] MEDS: METHYLPREDNISOLONE SOD SUCC PF 40 MG/ML VIAL IVP (16:40)
[2023-10-10 19:48] LABS: Vancomycin Trough 10.2 ug/mL (5.0-20.0)
[2023-10-10 20:48] LABS: Glucometer 162 mg/dL (74-106)
[2023-10-10] MEDS: MONTELUKAST SODIUM 10 MG TABLET PO (21:04)
[2023-10-10] MEDS: FAMOTIDINE 20 MG TABLET PO (21:04)
[2023-10-10] MEDS: PRAMIPEXOLE 1 MG TABLET 0.5 MG PO (21:04)
[2023-10-11] VITALS (12 sets, daily range): BP systolic 129–133; BP diastolic 75–87; PULSE 62–83; RESP 14–20; TEMP 36.8; O2SAT 91–97
[2023-10-11] MEDS: METHYLPREDNISOLONE SOD SUCC PF 40 MG/ML VIAL IVP ×2 (03:55→08:55)
[2023-10-11] MEDS: IMIPENEM/CILASTATIN SODIUM 500 MG in 0.9 % SODIUM CHLORIDE 100 ML 200 MG IV ×2 (03:55→09:00)
[2023-10-11] MEDS: LEVALBUTEROL HCL 0.63 MG/3 ML VIAL.NEB IH ×3 (03:55→11:09)
[2023-10-11] MEDS: VANCOMYCIN HCL 750 MG in 0.9 % SODIUM CHLORIDE 250 ML 250 MG IV (03:55)
[2023-10-11] MEDS: IPRATROPIUM BROMIDE 0.5 MG/2.5 ML VIAL.NEB IH ×3 (03:56→11:09)
[2023-10-11 03:59] LABS: Glucometer 134 mg/dL (74-106)
[2023-10-11 04:53] LABS: Basophils Percent Auto 0.1 % (0.2-2.0); Hematocrit 27.2 % (36.0-48.0); Hemoglobin 8.1 g/dL (12.0-16.0); Immature Granulocytes Abs Auto 0.12 10^3/uL (0.00-0.03); Immature Granulocytes Pct Auto 1.2 % (0.0-0.5); Lymphocytes Absolute Auto 1.1 10^3/uL (1.2-3.8); Lymphocytes Percent Auto 11.2 % (20.5-60.0); Mean Corpuscular HGB Conc 29.8 g/dL (29.9-35.2); Mean Corpuscular Hemoglobin 24.6 pg (26.7-34.0); Mean Corpuscular Volume 82.7 fL (81.0-99.0); Mean Platelet Volume 9.2 fL (9.5-13.5); Monocytes Absolute Auto 0.7 10^3/uL (0.3-0.8); Neutrophils Absolute Auto 7.8 10^3/uL (1.4-6.5); Neutrophils Percent Auto 80.5 % (43.0-75.0); Platelet Count 216 10^3/uL (150-450); Red Blood Count 3.29 10^6/uL (4.20-5.40); Red Cell Distribution Width 19.2 % (11.0-15.0); White Blood Count 9.6 10^3/uL (4.0-11.0)
[2023-10-11 05:00] LABS: Alanine Aminotransferase 38 U/L (14-59); Albumin Globulin Ratio 1.3; Albumin Level 2.8 g/dL (3.4-5.0); Alkaline Phosphatase 43 U/L (46-116); Anion Gap 12.2; Aspartate Amino Transferase 13 U/L (15-37); BUN Creatinine Ratio 46.2; Bilirubin Total 0.2 mg/dL (0.2-1.0); Carbon Dioxide 25.9 mmol/L (21.0-32.0); Chloride 109 mmol/L (98-107); Estimated GFR (African America >60 (>=60); Estimated GFR (Non-African Ame >60 (>=60); Globulin 2.2 g/dL; Glucose 133 mg/dL (74-106); Potassium 3.1 mmol/L (3.5-5.1); Sodium 144 mmol/L (136-145)
--- NOTE | 2023-10-11 06:53 | CM.NOTE ---
Rounding with Dr. Luo, RN [place] at bedside. Discussed propanolol could cause asthma worsening. Discussed sputum culture prelim results then awaiting final results. Discussed possible discharge today after lunch. Continue to follow.
[2023-10-11] MEDS: LACTATED RINGER'S SOLUTION 1,000 ML 100 ML IV (07:06)
[2023-10-11] MEDS: CLINDAMYCIN PHOSPHATE/D5W 900 MG/50 ML PIGGYBACK 100 MG IV (07:06)
--- NOTE | 2023-10-11 07:34 | P.PLPN_ITS ---
Progress Note: A&P Assessment and Plan (1) Severe persistent asthma with status asthmaticus: Assessment and Plan: 1. Status asthmaticus in severe persistent asthma. Status resolved. Has wheezes on exam d/t improved air movement. Difficulty is lack of prescription benefits. Explained to patient that I am unable to support her with inhaler samples indefinitely. She was instructed to follow through with Medicaid application. Cheapest option is albuterol 2 puffs QID +/- daily low dose pr ednisone. If Medicaid approved, then Symbicort 160, 2 puffs BID. Her next appointment with me is 02/15/2024 - seeing me before that for hospital F/U is not going to change anything except increase her debt - PFT were ordered outpatient on 08/22/2023 and not done. Once she obtains some medical/prescription coverage, then I can better treat her as she can afford better inhalers and get the ordered testing completed. 2. Acute hypercapnic respiratory failure. Secondary to #1. Resolved. 3. Acute hypoxic respiratory failure. Secondary to #1 & #4. Improved/resolved. 4. Severe sepsis. Secondary to retained tampon (foreign body object in the vagina). Resolved. 5. Lactic acidosis. Associated with above. Resolved 6. Acute renal failure. Secondary to #4 +/- other. Resolved. 7. Hyperkalemia. Secondary to #2 with mild contribution, if that, from #6. Resolved. 8. Steroid-induced hyperglycemia. A1C 5.8. 9. Anemia, unspecified. Associated with uterine fibroids, etc.? Defer to hosp italist +/- drawing in machine tender for eval/wup. 10. Nicotine/cigarette abuse in remission. Last cigarette was 08/06/2023. Do not restart smoking! Plan Nothing further to add. Appears acceptable for discharge from a pulmonary standpoint. Subjective Subjective Interval history: Discussed with RN. Patient liberated from ventilator yesterday. Doing well. Has mild expiratory wheezes on exam, but overall improved air movement. No pulmonary complaints today. Discussed discharge planning...she is looking into possible Medicaid. Also has a lead on a job with insurance. Exam Constitutional Vital Signs, click to edit/add: Last Vital Signs Temp 98.6 F 10/10/23 23:13 Pulse 77 10/11/23 07:01 Resp 16 10/11/23 07:01 BP 133/75 10/11/23 03:00 Pulse Ox 97 10/11/23 07:04 O2 Del Method Room Air 10/11/23 07:04 O2 Flow Rate 4 10/10/23 08:00 FiO2 25 10/10/23 07:55 Documenting provider has reviewed patient's vital signs: yes Common normals: no apparent distress General appearance: cooperative Chest Common normals: inspection of chest normal Chest: symmetrical chest wall rise Respiratory Common normals: no use of accessory muscles Effort & inspection: able to speak in complete sentences; no respiratory distress and no pursed lip breathing Auscultation: wheezes expiratory wheezes (Mild) Cardio Rate: regular rate Rhythm: regular rhythm GI Inspection: normal to inspection Extremity Common normals: no clubbing, cyanosis or edema Neuro Sensorium/orientation: awake and alert Motor exam: no tremor noted Psych Attitude: calm Speech: normal speech Attention/concentration: attention grossly intact Urinary Catheter Management Urinary Catheter Management Urethral: Cath placed during this visit: no
[2023-10-11] MEDS: POTASSIUM CHLORIDE 10 MEQ ER TABLET 20 MEQ PO (08:56)
[2023-10-11] MEDS: FERROUS SULFATE 325 MG TABLET PO (08:56)
[2023-10-11] MEDS: DILTIAZEM HCL 120 MG CAP.ER.24H PO (08:56)
[2023-10-11] MEDS: FAMOTIDINE 20 MG TABLET PO (08:56)
[2023-10-11] MEDS: CITALOPRAM HYDROBROMIDE 20 MG TABLET 40 MG PO (08:56)
[2023-10-11] MEDS: ENOXAPARIN SODIUM 40 MG/0.4 ML SYRINGE SUBQ (08:57)
--- NOTE | 2023-10-11 10:07 | P.DS_ITS ---
DS: Providers Provider Date of admission: 10/08/23 07:25 Primary care physician: Jose Jennings MD Consults: 10/08/23 07:47 Consult to Pulmonology Routine Consulting Provider: Keagan Caputo Reason for consultation: intubated Has provider been notified: Yes 10/10/23 Occupational Therapy Eval and Treat Routine Reason for consultation: Post Intubation Evaluation Has provider been notified: Yes Physical Therapy Eval and Treat Routine Reason for consultation: Post intubation evaluation Has provider been notified: Yes 10/10/23 11:59 Consult to Hospitalist, [employer] Routine Consulting Provider: Felix Roman Reason for consultation: ? PID - Toxic shock syndrome DS: Diagnosis Discharge Diagnosis (1) Severe persistent asthma with status asthmaticus: Plan Sinus tachycardia, respiratory distress, uncontrolled hypertension, respiratory acidosis, metabolic acidosis, acute renal failure, leukocytosis with left shift, hyperglycemia, lactic acidosis secondary to acute hypoxic respiratory failure with hypercapnia secondary to acute exacerbation of asthma and possible pneumonia-aspiration?. This is led to severe sepsis with multisystem organ dysfunction (brain, heme, kidney, Liver). Severe sepsis with multisystem organ dysfunction Significant hyperglycemia, Elevated liver function Iron deficiency anemia Acute kidney injury Hyperkalemia Longstanding asthma Depression GERD Migraines Mild protein calorie malnutrition DS: Summary Hospital Course Hospital Course: Patient seen and evaluated in the emergency room after collapsing at home, found to have severe metabolic and respiratory acidosis, unable to maintain sats or control airway in ER so patient was intubated. Very slow to wean off of the ventilator over the first 2 days. Just very poor air exchange secondary to the wheezing. Did improve slowly each day. Medications including IV antibiotics, frequent aerosols, steroids did improve things to the point that yesterday she can be extubated. She does still have a slight wheeze this morning but overall much improved and is back to room air. No definitive infectious etiology was found she did have a retained tampon but the culture for that was negative however patient was already on the antibiotics for about 14 hours prior to culture being obtained, patient will be discharged on oral antibiotics and tapering doses of steroids, changed her prophylactic migraine medication from a beta-christiano to a calcium channel christiano. Follow-up with her PCP within the next week. At some point may need to follow-up with [facility] for definitive intervention for her enlarged uterus. Medications see list. See PCP this next week. Time Spent with Patient Time attestation: Total time spent providing and/or coordinating discharge services: Exam Constitutional Vital Signs, click to edit/add: Last Vital Signs Temp 98.3 F 10/11/23 08:00 Pulse 76 10/11/23 10:00 Resp 16 10/11/23 08:00 BP 129/87 10/11/23 08:56 Pulse Ox 96 10/11/23 08:00 O2 Del Method Room Air 10/11/23 08:00 O2 Flow Rate 4 10/10/23 08:00 FiO2 25 10/10/23 07:55 Documenting provider has reviewed patient's vital signs: yes Common normals: no apparent distress (Sedated on ventilator) Chest Common normals: inspection of chest normal Respiratory Auscultation: wheezes (Better air exchange and wheezes have much improved) Cardio Common normals: regular rhythm; irregular rate Rate: tachycardic GI Common normals: Normal to inspection, nondistended, normoactive bowel sounds present DS: Data Data Completed and Pending Labs on day of discharge: Labs from last 24 hours 10/11/23 10/10/23 10/10/23 03:58 20:48 19:20 WBC 9.6 RBC 3.29 L Hgb 8.1 L Hct 27.2 L MCV 82.7 MCH 24.6 L MCHC 29.8 L RDW 19.2 H Plt Count 216 MPV 9.2 L Neut % (Auto) 80.5 H Lymph % (Auto) 11.2 L Weld % (Auto) 7.0 Eos % (Auto) 0.0 L Baso % (Auto) 0.1 L Neut # (Auto) 7.8 H Lymph # (Auto) 1.1 L Weld # (Auto) 0.7 Eos # (Auto) 0.0 Baso # (Auto) 0.0 Abs Immat Gran (auto) 0.12 H Imm/Tot Granulo (auto) 1.2 H Sodium 144 Potassium 3.1 L Chloride 109 H Carbon Dioxide 25.9 Anion Gap 12.2 BUN 24.0 H Creatinine 0.52 L Est GFR ( Amer) >60 Est GFR (Non-Af Amer) >60 BUN/Creatinine Ratio 46.2 Glucose 133 H Calcium 8.0 L Total Bilirubin 0.2 AST 13 L ALT 38 Alkaline Phosphatase 43 L Total Protein 5.0 L Albumin 2.8 L Globulin 2.2 Albumin/Globulin Ratio 1.3 Vancomycin Trough 10.2 POC Glucose 134 H 162 H 10/10/23 10/10/23 16:35 14:18 WBC RBC Hgb Hct MCV MCH MCHC RDW Plt Count MPV Neut % (Auto) Lymph % (Auto) Weld % (Auto) Eos % (Auto) Baso % (Auto) Neut # (Auto) Lymph # (Auto) Weld # (Auto) Eos # (Auto) Baso # (Auto) Abs Immat Gran (auto) Imm/Tot Granulo (auto) Sodium Potassium Chloride Carbon Dioxide Anion Gap BUN Creatinine Est GFR ( Amer) Est GFR (Non-Af Amer) BUN/Creatinine Ratio Glucose Calcium Total Bilirubin AST ALT Alkaline Phosphatase Total Protein Albumin Globulin Albumin/Globulin Ratio Vancomycin Trough POC Glucose 267 H 200 H Preliminary micro results at discharge 10/09/23 08:00 Sputum Culture - Preliminary Sputum - Endotracheal Tube Aspirate 10/08/23 08:40 - Preliminary Blood NO GROWTH AT 36-48 HOURS. FINAL TO FOLLOW. 10/08/23 08:35 Blood Culture Result 1 - Preliminary Blood NO GROWTH AT 36-48 HOURS. FINAL TO FOLLOW. Discharge Plan Discharge Disposition: Home, Self-Care Condition: Good Discharge Medications: New prednisone 10 mg tablet 50 mg PO DAILY Qty: 47 0RF Rx Instructions: 5/day for 3 days. 4/day for 3 days, 3/day for 3 days, 2/day for 3 days, 1/day for 3 days, 1/2 /day for 4 days amoxicillin-pot clavulanate 875-125 mg tablet 1 tab PO Q12H Qty: 20 0RF fluconazole [Diflucan] 100 mg tablet 100 mg PO DAILY 14 Days Qty: 14 0RF diltiazem HCl [Cardizem LA] 120 mg tablet extended release 24 hr 120 mg PO DAILY Qty: 30 11RF doxycycline monohydrate 100 mg capsule 100 mg PO BID 10 Days Qty: 20 0RF Continued propranolol 80 mg capsule,extended release 24 hr 80 mg PO DAILY citalopram 40 mg tablet 40 mg PO DAILY sumatriptan succinate 25 mg tablet 25 mg PO Q2H PRN (Reason: migraine headache) Rx Instructions: TAKE 1 TABLET BY MOUTH at the onset OF headache NEEDED, may repeat in 2 (TWO) HOURS one TIME pramipexole 0.5 mg tablet 0.5 mg PO BEDTIME montelukast 10 mg tablet 10 mg PO BEDTIME albuterol sulfate [ProAir HFA] 90 mcg/actuation HFA aerosol inhaler 2 inh inhalation Q4H PRN (Reason: shortness of breath or wheezing) baclofen 10 mg tablet 10 mg PO TID PRN (Reason: muscle spasm) bupropion HCl [Wellbutrin SR] 150 mg tablet sustained-release 12 hr 150 mg PO BID pantoprazole [Protonix] 40 mg tablet,delayed release (DR/EC) 40 mg PO DAILY Qty: 30 0RF Trelegy Ellipta 100-62.5-25 mcg blister with device 1 inh inhalation Q24H 30 Days Qty: 60 0RF albuterol sulfate 2.5 mg /3 mL (0.083 %) solution for nebulization 2.5 mg inhalation Q6H PRN (Reason: shortness of breath or wheezing) Activity: increase activity as tolerated and resume usual activities as tolerated Activity Detail: no restrictions at this time. Resume usual activities as tolerated. Diet: advance to your usual diet Diet Detail: regular Print Language: Ivorian Patient Instructions: Diltiazem (By mouth), Doxycycline (By mouth), Prednisone (By mouth), Amoxicillin/Clavulanate Potassium (By mouth), Fluconazole (By mouth), Pelvic Inflammatory Disease (DC), Uterine Fibroids (ED), Asthma (DC), COPD (Chronic Obstructive Pulmonary Disease) (DC), Moderate and Severe Persistent Asthma (DC), Bronchospasm (ED) Forms: Portal Instructions Follow Up Appointments: Dr Dick Huffman office Oct @ 3:30 Discharge Date/Time: 10/11/23 11:54 Discharge location: Home
--- NOTE | 2023-10-11 10:08 | CM.NOTE ---
Discussed with pt discharge planning, PT recommending HH services. Pt denies need for HH services, denies any weakness and is not going to be homebound. Pt refuses at this time. Pt also is going to apply for Medicaid when she gets home, offered to give pt Medicaid application. Pt denies need, I will fill out online and submit. Pt does request Living Will packet, pt was provided with Living Will packet.
[2023-10-11] MEDS: BUDESONIDE 0.5 MG/2 ML AMPULE NEB IH (11:09)
--- NOTE | 2023-10-12 10:35 | CM.DCFOLLOWU ---
First discharge follow up call attempted with no answer. Unable to reach patient at this time.
--- NOTE | 2023-10-13 12:58 | CM.DCFOLLOWU ---
Second attempt at discharge follow up call. Unable to reach patient at this time. No answer to the phone call.
--- NOTE | 2023-10-14 13:14 | CM.DCFOLLOWU ---
Third and final call back attempted today. Call went directly to voicemail. Unable to reach patient at this time.
== END 2023-10-11 11:54 | disposition home or self-care (01) | DRG 871 ==
LOC: ER 05:19 → ICU 07:30
PROVIDERS: Internal Medicine; Admitting Provider Family Medicine; Emergency Provider Internal Medicine; PCP Family Medicine; Visit Provider Family Medicine
DX: A41.9 Sepsis, unspecified organism (principal); J69.0 Pneumonitis due to inhalation of food and vomit; J96.01 Acute respiratory failure with hypoxia; J96.02 Acute respiratory failure with hypercapnia; J45.52 Severe persistent asthma with status asthmaticus; N17.9 Acute kidney failure, unspecified; E44.1 Mild protein-calorie malnutrition; E87.4 Mixed disorder of acid-base balance; R65.20 Severe sepsis without septic shock; T38.0X6A Underdosing of glucocorticoids and synthetic analogues, initial encounter; Z91.141 Patient's other noncompliance with medication regimen due to financial hardship; N85.2 Hypertrophy of uterus; D50.9 Iron deficiency anemia, unspecified; R73.9 Hyperglycemia, unspecified; T38.0X5A Adverse effect of glucocorticoids and synthetic analogues, initial encounter; D25.9 Leiomyoma of uterus, unspecified; R10.2 Pelvic and perineal pain; E87.5 Hyperkalemia; F32.A Depression, unspecified; K21.9 Gastro-esophageal reflux disease without esophagitis; G43.909 Migraine, unspecified, not intractable, without status migrainosus; F41.9 Anxiety disorder, unspecified; Z68.21 Body mass index [BMI] 21.0-21.9, adult; Z56.0 Unemployment, unspecified; Z78.1 Physical restraint status; Z79.899 Other long term (current) drug therapy; Z83.3 Family history of diabetes mellitus; Z82.49 Family history of ischemic heart disease and other diseases of the circulatory system; Z91.018 Allergy to other foods; Z87.891 Personal history of nicotine dependence
CPT/HCPCS: 0202U; 36415; 36600; 71045; 71250; 74176; 76856; 80048; 80053; 80076; 80202; 80307; 81001; 82248; 82805; 82948; 83036; 83605; 83735; 84484; 85007; 85025; 85027; 87040; 87070; 87086; 87107; 87635; 87811; 93005; 94002; 94003; 94640; 94761; 96365; 96366; 96367; 96368; 96372; 96375; 96376; 97161; 97165; 99285; G0328; J2920; J2930; J3370; P9047